=== PATIENT | female | born 1985 | race Caucasian/White ===

== ENCOUNTER 2022-02-05 03:52 | Emergency (ER) | payer MEDICAID ==
[~2022-02-05] VITALS: Ht 167.6 cm; Wt 59.1 kg
[2022-02-05] MEDS ORDERED: iohexol 350MG/ML 100ml bottle IV ONE (04:08)
[2022-02-05] MEDS ORDERED: ibuprofen tablet 400 MG TABLET PO ONE (05:25)
[2022-02-05] MEDS ORDERED: ibuprofen 200mg tablet PO ONE (05:30)
[2022-02-05] MEDS ORDERED: ALPRAZolam 0.5mg tablet PO ONE (07:15)
[2022-02-05 07:19] VITALS: BP 128/86
== END 2022-02-05 07:21 | disposition home or self-care (01) ==
LOC: ER 03:53
DX: S10.93XA Contusion of unspecified part of neck, initial encounter (principal); M25.552 Pain in left hip; Z88.0 Allergy status to penicillin; Z88.6 Allergy status to analgesic agent; X58.XXXA Exposure to other specified factors, initial encounter; Y93.89 Activity, other specified; Y92.89 Other specified places as the place of occurrence of the external cause; Y99.8 Other external cause status
CPT/HCPCS: 70498; 99285; J3490; Q9967; 99284

== ENCOUNTER 2023-11-07 18:48 | Emergency (ER) | payer MEDICAID ==
[~2023-11-07] VITALS: Ht 167.6 cm; Wt 54.4 kg
[2023-11-07 18:53] VITALS: TEMP 97.3
[2023-11-07] MEDS: normal saline 1000ML IV soln IV ONE (19:35)
[2023-11-07 19:50] LABS: BILIRUBIN,URINE NEGATIVE (Neg); COLOR,URINE YELLOW (Yellow); GLUCOSE, URINE NEGATIVE (Neg); KETONES,URINE 15 mg/dl (Neg); LEUKOCYTE ESTERASE ,URINE NEGATIVE (Neg); NITRITES, URINE NEGATIVE (Neg); OCCULT BLOOD,URINE LARGE (Neg); PH,URINE 6.5 (4.8-8.0); PROTEIN,URINE NEGATIVE (Neg)
[2023-11-07 19:55] LABS: URINE HCG NEGATIVE (NEG)
[2023-11-07 20:10] LABS: CLARITY,URINE SLIGHTLY CLOUDY (Clear); UA COLLECTION TYPE CLN CATCH MIDSTREAM
[2023-11-07 20:18] LABS: BACTERIA,URINE FEW /HPF (Neg); SQUAMOUS EPITHELIAL CELL,UR MANY /LPF (FEW)
[2023-11-07 20:19] LABS: MUCUS STRANDS FEW /LPF (Neg); RENAL CELLS, URINE FEW /HPF; TRANSITIONAL EPI CELLS,URINE MODERATE /HPF
[2023-11-07 20:21] LABS: URINE AMPHETAMINE SCREEN NEGATIVE (Neg); URINE BARBITUATE SCREEN NEGATIVE (Neg); URINE BENZODIAZEPINES SCREEN NEGATIVE (Neg); URINE CANNABINOID SCREEN NEGATIVE (Neg); URINE COCAINE SCREEN NEGATIVE (Neg); URINE METHADONE SCREEN NEGATIVE (Neg); URINE OPIATE SCREEN NEGATIVE (Neg); URINE PHENCYCLIDINE SCREEN NEGATIVE (Neg)
[2023-11-07] MEDS: HYDROcodone/acetaminophen 5mg/325mg tablet PO ONE (20:24)
[2023-11-07] MEDS: LORazepam 2 mg/ml vial IV ONE ×2 (20:55→22:24)
[2023-11-07 21:21] LABS: ETHANOL 72 MG/DL (<10); MAGNESIUM 1.8 MG/DL (1.5-2.4)
[2023-11-07 21:26] LABS: CREATINE KINASE 95 U/L (26-192)
[2023-11-07] MEDS: CefTRIAXone 2gm/D5W 50ml BAG 50 ML IV ONE (22:13)
[2023-11-07 22:21] LABS: BASOPHILS % (AUTO) 0.5 % (0-1); EOSINOPHILS % (AUTO) 0.4 % (0-6); HEMATOCRIT 33.3 % (35.0-45.0); HEMOGLOBIN 11.5 g/dl (12.0-16.0); LYMPHOCYTES # (AUTO) 1.4 X10'3 (1.1-4.8); LYMPHOCYTES % (AUTO) 33.8 % (21-51); MEAN CORPUSCULAR HGB CONC 34.4 g/dL (33.0-36.5); MEAN CORPUSCULAR VOLUME 107.6 FL (78-98); MEAN PLATELET VOLUME 7.7 FL (7.4-10.4); MONOCYTES # (AUTO) 0.4 X10'3 (0-0.9); MONOCYTES % (AUTO) 8.8 % (2-12); NEUTROPHILS # (AUTO) 2.4 X10'3 (1.8-7.7); NEUTROPHILS % (AUTO) 56.5 % (42-75); PLATELET COUNT 135 X10'3 (140-440); RED CELL DISTRIBUTION WIDTH 13.7 % (11.5-14.5); WHITE BLOOD COUNT 4.2 X10'3 (4.5-11.0)
[2023-11-07] MEDS: morphine 2 MG/ML inj. syringe IV ONE (22:24)
[2023-11-07 23:27] LABS: ALANINE AMINOTRANSFERASE 24 U/L (12-78); ALBUMIN 2.9 G/DL (3.4-5.0); ALBUMIN/GLOBULIN RATIO 0.9 (1.1-1.5); ALKALINE PHOSPHATASE 89 IU/L (46-116); ANION GAP 13 (8-16); ASPARTATE AMINO TRANSFERASE 70 U/L (10-37); BILIRUBIN,TOTAL 0.5 MG/DL (0.1-1.0); BLOOD UREA NITROGEN 8 MG/DL (7-18); BUN/CREATININE RATIO 13.3 (10.0-20.0); CALCIUM 7.9 MG/DL (8.5-10.1); CHLORIDE 100 MMOL/L (99-107); GLUCOSE 67 MG/DL (70-104); POTASSIUM 4.9 MMOL/L (3.5-5.1); SODIUM 139 MMOL/L (135-145); TOTAL CARBON DIOXIDE 25.8 MMOL/L (24-32); TOTAL PROTEIN 6.2 G/DL (6.4-8.2); eCRCL 108 ML/MIN; eGFR > 90 ML/MIN
[2023-11-08] MEDS ORDERED: NITR100C6 PO (00:26)
[2023-11-08] MEDS: normal saline 1000ml 1,000 ML IV ONE (00:43)
[2023-11-08 02:00] VITALS: BP 120/87; PULSE 129; RESP 18; O2SAT 98
== END 2023-11-08 02:03 | disposition home or self-care (01) ==
LOC: ER 18:48
DX: N39.0 Urinary tract infection, site not specified (principal); E86.0 Dehydration; F10.10 Alcohol abuse, uncomplicated; Z88.8 Allergy status to other drugs, medicaments and biological substances; Z88.1 Allergy status to other antibiotic agents; Y90.3 Blood alcohol level of 60-79 mg/100 ml
CPT/HCPCS: 36415; 71045; 80053; 80305; 80320; 81001; 81025; 82550; 83735; 84484; 85025; 93005; 96361; 96365; 96375; 96376; 99285; J0696; J2060; J2270; J7030; A6449

== ENCOUNTER 2023-12-10 10:59 | Inpatient (IN) | payer MEDICAID ==
[~2023-12-10] VITALS: Ht 165.1 cm; Wt 56.2 kg
[~2023-12-10 10:59] MED LIST: NITR100C6 PO
[2023-12-10] MEDS ORDERED: ringers solution, lacted 1,000 ML IV ONE (12:00)
[2023-12-10] MEDS: LORazepam 2 mg/ml vial IV ONE ×2 (12:04→13:17)
[2023-12-10] MEDS: thiamine 100mg/ml 2ml inj. IV STA (12:44)
[2023-12-10] MEDS: folic acid 1mg/0.2ml inj IV ONE (12:44)
[2023-12-10] MEDS: normal saline 1000ml 1,000 ML IV ONE ×2 (12:45→13:17)
[2023-12-10] MEDS ORDERED: LORazepam 2 mg/ml vial IV ONE (13:00)
[2023-12-10 13:13] LABS: BILIRUBIN,URINE NEGATIVE (Neg); CLARITY,URINE SLIGHTLY CLOUDY (Clear); COLOR,URINE YELLOW (Yellow); GLUCOSE, URINE NEGATIVE (Neg); KETONES,URINE 15 mg/dl (Neg); LEUKOCYTE ESTERASE ,URINE NEGATIVE (Neg); NITRITES, URINE POSITIVE (Neg); OCCULT BLOOD,URINE TRACE-INTACT (Neg); PROTEIN,URINE NEGATIVE (Neg); UROBILINOGEN,URINE 0.2 E.U/dL (0.2-1.0)
[2023-12-10 13:18] LABS: UA COLLECTION TYPE CLN CATCH MIDSTREAM
[2023-12-10 13:19] LABS: SQUAMOUS EPITHELIAL CELL,UR MANY /LPF (FEW)
[2023-12-10 13:20] LABS: BACTERIA,URINE 4+ /HPF (Neg); HYALINE CASTS 0-3 /LPF (NEGATIVE); RBC,URINE 0-2 /HPF (0-2); WBC,URINE 20-30 /HPF (0-4)
[2023-12-10 13:32] LABS: BASOPHILS % (AUTO) 0.4 % (0-1); EOSINOPHILS % (AUTO) 0 % (0-6); HEMOGLOBIN 12.3 g/dl (12.0-16.0); LYMPHOCYTES # (AUTO) 1.9 X10'3 (1.1-4.8); LYMPHOCYTES % (AUTO) 27.2 % (21-51); MEAN CORPUSCULAR HEMOGLOBIN 37.7 PG (27.0-31.0); MEAN CORPUSCULAR HGB CONC 34.3 g/dL (33.0-36.5); MEAN PLATELET VOLUME 8.3 FL (7.4-10.4); MONOCYTES # (AUTO) 0.7 X10'3 (0-0.9); MONOCYTES % (AUTO) 9.8 % (2-12); NEUTROPHILS # (AUTO) 4.3 X10'3 (1.8-7.7); NEUTROPHILS % (AUTO) 62.6 % (42-75); PLATELET COUNT 226 X10'3 (140-440); RED BLOOD COUNT 3.27 X10'6 (4.20-5.60); RED CELL DISTRIBUTION WIDTH 15.2 % (11.5-14.5); WHITE BLOOD COUNT 6.9 X10'3 (4.5-11.0)
[2023-12-10] MEDS: chlordiazePOXIDE 25mg capsule PO ONE (13:34)
[2023-12-10 13:35] LABS: ALANINE AMINOTRANSFERASE 31 U/L (12-78); ALBUMIN 3.1 G/DL (3.4-5.0); ALKALINE PHOSPHATASE 114 IU/L (46-116); ANION GAP 14 (8-16); ASPARTATE AMINO TRANSFERASE 93 U/L (10-37); BILIRUBIN,TOTAL 0.7 MG/DL (0.1-1.0); BLOOD UREA NITROGEN 4 MG/DL (7-18); BUN/CREATININE RATIO 7.8 (10.0-20.0); CALCIUM 7.7 MG/DL (8.5-10.1); CHLORIDE 100 MMOL/L (99-107); CREATININE 0.51 MG/DL (0.40-0.90); GLUCOSE 118 MG/DL (70-104); MAGNESIUM 1.5 MG/DL (1.5-2.4); SODIUM 135 MMOL/L (135-145); TOTAL CARBON DIOXIDE 20.6 MMOL/L (24-32); TOTAL PROTEIN 6.2 G/DL (6.4-8.2); eCRCL 127 ML/MIN; eGFR > 90 ML/MIN
[2023-12-10] MEDS: CefTRIAXone/D5W-Rocephin 1gm 50 ML IV ONE (14:09)
[2023-12-10] MEDS ORDERED: magnesium 4gm in 100ml NS 100 ML IV PRN (14:30)
[2023-12-10] MEDS ORDERED: ondansetron/PF 4mg/2ml inj IV PRN (14:30)
[2023-12-10] MEDS ORDERED: potassium Cl 40MEQ/1/2NS 520ml 520 ML IV PRN (14:30)
[2023-12-10] MEDS ORDERED: magnesium Cl slow-release 64mg tablet PO PRN (14:30)
[2023-12-10] MEDS ORDERED: acetaminophen 325mg tablet PO PRN ×2 (14:30)
[2023-12-10] MEDS ORDERED: potassium Cl 20 mEq SR tablet PO PRN ×2 (14:30)
[2023-12-10] MEDS ORDERED: magnesium 2GM in 50ml NS 50 ML IV PRN (14:30)
[2023-12-10] MEDS: CefTRIAXone 2gm/D5W 50ml BAG 50 ML IV SCH (14:35)
[2023-12-10] MEDS ORDERED: haloperidol 5mg tablet PO PRN (14:35)
[2023-12-10] MEDS: atenolol 50mg tablet PO SCH (15:40)
[2023-12-10] MEDS: LORazepam 2 mg/ml vial IV PRN (15:40)
[2023-12-10] MEDS: normal saline 1000ml 1,000 ML IV SCH (15:40)
[2023-12-10] MEDS ORDERED: morphine 2 MG/ML inj. syringe IV PRN (15:55)
[2023-12-10 16:40] LABS: LIPASE 17 U/L (16-77)
[2023-12-10 16:45] VITALS: BP 124/86; PULSE 99; TEMP 97.7; O2SAT 100
[2023-12-10 17:05] LABS: HEMOGLOBIN A1C 4.6 % (4.5-6.2)
[2023-12-10] MEDS: HYDROcodone/acetaminophen 5mg/325mg tablet PO PRN (17:27)
[2023-12-10] MEDS: acetaminophen 325mg tablet PO SCH (17:27)
[2023-12-10] MEDS: haloperidol lactate 5mg/ml inj IM PRN (20:36)
[2023-12-10] MEDS: cyclobenzaprine 10mg tablet PO PRN (20:36)
[2023-12-10] MEDS: thiamine 100mg/ml 2ml inj. IV SCH (20:36)
[2023-12-10] MEDS: LORazepam 1 MG tablet PO PRN (20:36)
[2023-12-10] MEDS: enoxaparin 40mg/0.4ml syringe SQ SCH (20:37)
[2023-12-10 22:00] VITALS: BP 123/69; PULSE 97; TEMP 98.5; O2SAT 99
[2023-12-10 22:51] VITALS: BP 123/69; PULSE 97; RESP 14; TEMP 98.5; O2SAT 99
[2023-12-11 06:00] VITALS: BP 126/71; PULSE 87; RESP 13; TEMP 97.9; O2SAT 100
[2023-12-11] MEDS: multivitamins, therapeutics tablet PO SCH (07:41)
[2023-12-11] MEDS: folic acid 1mg/0.2ml inj IV SCH (07:47)
[2023-12-11 08:00] VITALS: RESP 14; O2SAT 98
[2023-12-11 08:28] LABS: ALANINE AMINOTRANSFERASE 29 U/L (12-78); ALBUMIN 2.8 G/DL (3.4-5.0); ALBUMIN/GLOBULIN RATIO 0.8 (1.1-1.5); ALKALINE PHOSPHATASE 106 IU/L (46-116); ANION GAP 11 (8-16); ASPARTATE AMINO TRANSFERASE 99 U/L (10-37); BILIRUBIN,TOTAL 1.1 MG/DL (0.1-1.0); BLOOD UREA NITROGEN 2 MG/DL (7-18); BUN/CREATININE RATIO 3.1 (10.0-20.0); CALCIUM 7.8 MG/DL (8.5-10.1); CHLORIDE 104 MMOL/L (99-107); CREATININE 0.64 MG/DL (0.40-0.90); GLUCOSE 89 MG/DL (70-104); LIPASE 26 U/L (16-77); MAGNESIUM 1.7 MG/DL (1.5-2.4); PHOSPHORUS 3.1 MG/DL (2.3-4.5); SODIUM 139 MMOL/L (135-145); TOTAL CARBON DIOXIDE 24.3 MMOL/L (24-32); TOTAL PROTEIN 6.3 G/DL (6.4-8.2); eCRCL 101 ML/MIN; eGFR > 90 ML/MIN
[2023-12-11 08:31] LABS: POTASSIUM 3.7 MMOL/L (3.5-5.1)
[2023-12-11 08:34] LABS: BASOPHILS % (AUTO) 0.8 % (0-1); EOSINOPHILS % (AUTO) 0.5 % (0-6); HEMATOCRIT 37.2 % (35.0-45.0); HEMOGLOBIN 12.4 g/dl (12.0-16.0); LYMPHOCYTES # (AUTO) 2.3 X10'3 (1.1-4.8); LYMPHOCYTES % (AUTO) 55.9 % (21-51); MEAN CORPUSCULAR HEMOGLOBIN 37.9 PG (27.0-31.0); MEAN CORPUSCULAR HGB CONC 33.4 g/dL (33.0-36.5); MEAN CORPUSCULAR VOLUME 113.3 FL (78-98); MEAN PLATELET VOLUME 8.8 FL (7.4-10.4); MONOCYTES # (AUTO) 0.3 X10'3 (0-0.9); MONOCYTES % (AUTO) 6.2 % (2-12); NEUTROPHILS # (AUTO) 1.5 X10'3 (1.8-7.7); NEUTROPHILS % (AUTO) 36.6 % (42-75); PLATELET COUNT 224 X10'3 (140-440); RED BLOOD COUNT 3.28 X10'6 (4.20-5.60); RED CELL DISTRIBUTION WIDTH 15.4 % (11.5-14.5); WHITE BLOOD COUNT 4.1 X10'3 (4.5-11.0)
[2023-12-11 09:15] LABS: PLATELET ESTIMATE NORMAL; STOMATOCYTES FEW; TOTAL CELLS COUNTED 100
[2023-12-11 10:00] VITALS: BP 116/85; PULSE 88; RESP 14; TEMP 97; O2SAT 100
[2023-12-11 18:00] VITALS: BP 122/83; PULSE 101; RESP 18; TEMP 97.1; O2SAT 100
[2023-12-11] MEDS: lactose-reduced food (Ensure Enlive) - 237ml bottle PO SCH (19:00)
[2023-12-11 20:00] VITALS: RESP 14; O2SAT 98
[2023-12-11 22:00] VITALS: BP 139/90; PULSE 121; RESP 13; TEMP 97.6; O2SAT 100
[2023-12-12 06:00] VITALS: BP 146/105; PULSE 101; RESP 14; TEMP 97.3; O2SAT 100
[2023-12-12 06:33] LABS: BASOPHILS % (AUTO) 0.3 % (0-1); EOSINOPHILS % (AUTO) 0.8 % (0-6); HEMATOCRIT 33.8 % (35.0-45.0); HEMOGLOBIN 11.4 g/dl (12.0-16.0); LYMPHOCYTES # (AUTO) 1.4 X10'3 (1.1-4.8); LYMPHOCYTES % (AUTO) 40.9 % (21-51); MEAN CORPUSCULAR HEMOGLOBIN 37.7 PG (27.0-31.0); MEAN CORPUSCULAR HGB CONC 33.6 g/dL (33.0-36.5); MEAN CORPUSCULAR VOLUME 112.2 FL (78-98); MEAN PLATELET VOLUME 8.6 FL (7.4-10.4); MONOCYTES # (AUTO) 0.2 X10'3 (0-0.9); MONOCYTES % (AUTO) 6.9 % (2-12); NEUTROPHILS # (AUTO) 1.7 X10'3 (1.8-7.7); NEUTROPHILS % (AUTO) 51.1 % (42-75); PLATELET COUNT 153 X10'3 (140-440); RED BLOOD COUNT 3.01 X10'6 (4.20-5.60); RED CELL DISTRIBUTION WIDTH 15.3 % (11.5-14.5); WHITE BLOOD COUNT 3.3 X10'3 (4.5-11.0)
[2023-12-12] MEDS: HYDROcodone/acetaminophen 5mg/325mg tablet PO PRN (06:33)
[2023-12-12 06:39] LABS: ALANINE AMINOTRANSFERASE 27 U/L (12-78); ALBUMIN 2.9 G/DL (3.4-5.0); ALBUMIN/GLOBULIN RATIO 0.9 (1.1-1.5); ALKALINE PHOSPHATASE 103 IU/L (46-116); ANION GAP 10 (8-16); ASPARTATE AMINO TRANSFERASE 64 U/L (10-37); BILIRUBIN,TOTAL 0.4 MG/DL (0.1-1.0); BLOOD UREA NITROGEN 3 MG/DL (7-18); BUN/CREATININE RATIO 5.9 (10.0-20.0); CALCIUM 8.2 MG/DL (8.5-10.1); CHLORIDE 108 MMOL/L (99-107); CREATININE 0.51 MG/DL (0.40-0.90); GLUCOSE 89 MG/DL (70-104); LIPASE 29 U/L (16-77); MAGNESIUM 1.4 MG/DL (1.5-2.4); PHOSPHORUS 3.7 MG/DL (2.3-4.5); POTASSIUM 3.2 MMOL/L (3.5-5.1); SODIUM 145 MMOL/L (135-145); TOTAL CARBON DIOXIDE 27.1 MMOL/L (24-32); TOTAL PROTEIN 6.3 G/DL (6.4-8.2); eCRCL 131 ML/MIN; eGFR > 90 ML/MIN
[2023-12-12 06:41] LABS: ACETONE NEGATIVE (NEGATIVE)
[2023-12-12 08:00] VITALS: RESP 14; O2SAT 100
[2023-12-12 08:55] VITALS: BP_SYST 146; PULSE 101
[2023-12-12] MEDS ORDERED: CIPR-259 PO (09:33)
[2023-12-12] MEDS ORDERED: thiamine tablet PO (09:33)
[2023-12-12] MEDS ORDERED: FOLI1TAB27 PO (09:33)
[2023-12-12] MEDS ORDERED: MULT-25 PO (09:33)
[2023-12-12] MEDS ORDERED: MELA5CAP PO (10:07)
[2023-12-12] MEDS ORDERED: ATEN50TA41 PO (10:07)
[2023-12-14] MEDS ORDERED: thiamine 100mg tablet PO SCH (08:00)
[2023-12-15] MEDS ORDERED: folic acid 1mg tablet PO SCH (08:00)
== END 2023-12-12 11:20 | disposition home or self-care (01) | DRG 463 ==
LOC: ER 10:59 → ED HOLD 14:33 → ORTHO 4S 16:39
PROVIDERS: ADMIT Internal Medicine; ATTEND Internal Medicine
DX: N39.0 Urinary tract infection, site not specified (principal); D53.9 Nutritional anemia, unspecified; F10.239 Alcohol dependence with withdrawal, unspecified; Z88.1 Allergy status to other antibiotic agents; Z88.5 Allergy status to narcotic agent; Z88.8 Allergy status to other drugs, medicaments and biological substances; Z98.891 History of uterine scar from previous surgery
CPT/HCPCS: 36415; 71045; 80053; 81001; 82009; 83036; 83605; 83690; 83735; 84100; 84443; 85007; 85025; 87040; 87081; 93005; 97161; 97530; 99285; A6258; G0378; J0696; J1630; J1650; J2060; J3411; J3490; J7030

== ENCOUNTER 2024-03-12 18:49 | Emergency (ER) | payer MEDICAID ==
[~2024-03-12] VITALS: Ht 167.6 cm; Wt 52.7 kg
[~2024-03-12 18:49] MED LIST changes: +ATEN50TA41 PO; +FOLI1TAB27 PO; +MELA5CAP PO; +MULT-25 PO; -NITR100C6 PO; +thiamine tablet PO
[2024-03-12 19:04] VITALS: TEMP 97.4
[2024-03-12 21:41] LABS: BASOPHILS % (AUTO) 0.7 % (0-1); EOSINOPHILS % (AUTO) 0.3 % (0-6); HEMATOCRIT 46.2 % (35.0-45.0); HEMOGLOBIN 15.7 g/dl (12.0-16.0); LYMPHOCYTES # (AUTO) 1.7 X10'3 (1.1-4.8); LYMPHOCYTES % (AUTO) 30.8 % (21-51); MEAN CORPUSCULAR HEMOGLOBIN 37.1 PG (27.0-31.0); MEAN CORPUSCULAR HGB CONC 34.1 g/dL (33.0-36.5); MEAN CORPUSCULAR VOLUME 108.9 FL (78-98); MEAN PLATELET VOLUME 8.5 FL (7.4-10.4); MONOCYTES # (AUTO) 0.5 X10'3 (0-0.9); MONOCYTES % (AUTO) 8.2 % (2-12); NEUTROPHILS # (AUTO) 3.4 X10'3 (1.8-7.7); PLATELET COUNT 270 X10'3 (140-440); RED BLOOD COUNT 4.24 X10'6 (4.20-5.60); RED CELL DISTRIBUTION WIDTH 13.2 % (11.5-14.5); WHITE BLOOD COUNT 5.7 X10'3 (4.5-11.0)
[2024-03-12 21:56] LABS: ALANINE AMINOTRANSFERASE 47 U/L (12-78); ALBUMIN 3.8 G/DL (3.4-5.0); ALBUMIN/GLOBULIN RATIO 0.8 (1.1-1.5); ALKALINE PHOSPHATASE 155 IU/L (46-116); ANION GAP 11 (8-16); ASPARTATE AMINO TRANSFERASE 171 U/L (10-37); BILIRUBIN,TOTAL 1.4 MG/DL (0.1-1.0); BLOOD UREA NITROGEN 7 MG/DL (7-18); BUN/CREATININE RATIO 9.5 (10.0-20.0); CALCIUM 9.3 MG/DL (8.5-10.1); CHLORIDE 91 MMOL/L (99-107); CREATININE 0.74 MG/DL (0.40-0.90); GLUCOSE 116 MG/DL (70-104); POTASSIUM 4.7 MMOL/L (3.5-5.1); SODIUM 130 MMOL/L (135-145); TOTAL CARBON DIOXIDE 28.5 MMOL/L (24-32); TOTAL PROTEIN 8.3 G/DL (6.4-8.2); eCRCL 85 ML/MIN; eGFR 87 ML/MIN
[2024-03-12 22:03] LABS: LIPASE 25 U/L (16-77); PRO BRAIN NATRIURETIC PEPTIDE 33 PG/ML (0-125)
[2024-03-12] MEDS ORDERED: PRED20TA PO (22:14)
[2024-03-12] MEDS: ketorolac trometh. 30mg/ml inj. IM ONE (22:25)
[2024-03-12] MEDS: dexamethasone sod phosphate 10mg/ml inj IM STA (22:26)
== END 2024-03-12 23:28 | disposition home or self-care (01) ==
LOC: ER 18:49
DX: M32.8 Other forms of systemic lupus erythematosus (principal); F10.90 Alcohol use, unspecified, uncomplicated; Z88.8 Allergy status to other drugs, medicaments and biological substances; Z88.1 Allergy status to other antibiotic agents; Z79.899 Other long term (current) drug therapy
CPT/HCPCS: 36415; 71045; 80053; 83605; 83690; 83880; 84145; 84484; 85025; 87040; 93005; 96372; 99285; J1100; J1885

== ENCOUNTER 2024-06-04 08:55 | Emergency (ER) | payer MEDICAID ==
[~2024-06-04] VITALS: Ht 162.6 cm; Wt 64.0 kg
[2024-06-04 08:56] VITALS: TEMP 98.5
[2024-06-04] MEDS: LORazepam 1 MG tablet PO ONE (10:52)
[2024-06-04] MEDS: dicyclomine 10 MG capsule PO ONE (10:52)
[2024-06-04] MEDS: diphenhydrAMINE 50 mg/ml inj IV ONE (11:41)
[2024-06-04] MEDS: metoclopramide 5 mg/ml inj IV ONE (11:42)
[2024-06-04] MEDS: normal saline 1000ml 1,000 ML IV ONE (11:42)
[2024-06-04] MEDS: ketorolac trometh 30MG/ML vial 30 MG/ML VIAL IM ONE (11:48)
[2024-06-04] MEDS ORDERED: ONDA-243 PO (12:53)
[2024-06-04] MEDS ORDERED: CHLO25CA10 PO (12:53)
[2024-06-04] MEDS: morphine 4 MG/ML inj SYRINge IV ONE (13:24)
[2024-06-04 13:29] VITALS: BP 157/102; PULSE 127; RESP 14; O2SAT 98
== END 2024-06-04 13:42 | disposition home or self-care (01) ==
LOC: ER 08:55
DX: F10.229 Alcohol dependence with intoxication, unspecified (principal); F10.239 Alcohol dependence with withdrawal, unspecified; Z88.1 Allergy status to other antibiotic agents; Z88.8 Allergy status to other drugs, medicaments and biological substances; Z79.899 Other long term (current) drug therapy
CPT/HCPCS: 96361; 96372; 96374; 96375; 99284; J1200; J1885; J2270; J2765; J7030

== ENCOUNTER 2024-12-04 10:23 | Inpatient (IN) | payer MEDICAID ==
[~2024-12-04] VITALS: Ht 167.6 cm; Wt 54.5 kg
[~2024-12-04 10:23] MED LIST changes: +CHLO25CA10 PO; +ONDA-243 PO
[2024-12-04] MEDS ORDERED: pantoprazole 40 MG vial IV SCH (10:45)
[2024-12-04 11:19] LABS: BASOPHILS % (AUTO) 0.7 % (0-1); EOSINOPHILS % (AUTO) 0.1 % (0-6); HEMOGLOBIN 13.1 g/dl (12.0-16.0); LYMPHOCYTES # (AUTO) 1.9 X10'3 (1.1-4.8); LYMPHOCYTES % (AUTO) 36.2 % (21-51); MEAN CORPUSCULAR HEMOGLOBIN 37.6 PG (27.0-31.0); MEAN CORPUSCULAR HGB CONC 34.5 g/dL (33.0-36.5); MEAN PLATELET VOLUME 9.5 FL (7.4-10.4); MONOCYTES # (AUTO) 0.5 X10'3 (0-0.9); MONOCYTES % (AUTO) 9.9 % (2-12); NEUTROPHILS # (AUTO) 2.8 X10'3 (1.8-7.7); NEUTROPHILS % (AUTO) 53.1 % (42-75); PLATELET COUNT 150 X10'3 (140-440); RED BLOOD COUNT 3.49 X10'6 (4.20-5.60); RED CELL DISTRIBUTION WIDTH 15.6 % (11.5-14.5); WHITE BLOOD COUNT 5.3 X10'3 (4.5-11.0)
[2024-12-04] MEDS: pantoprazole 40 MG vial IV ONE (11:21)
[2024-12-04] MEDS: normal saline 1000ml 1,000 ML IV ONE ×2 (11:22→12:43)
[2024-12-04] MEDS: diazepam inj 5 MG/ML inj. IV ONE ×2 (11:22→12:41)
[2024-12-04 11:28] LABS: INR 1.5 INR; PROTHROMBIN TIME 14.5 SECONDS (9.0-12.0)
[2024-12-04] MEDS: thiamine 100mg/ml 2ml inj. IV ONE (11:31)
[2024-12-04 11:32] LABS: ALANINE AMINOTRANSFERASE 171 U/L (12-78); ALBUMIN 1.9 G/DL (3.4-5.0); ALBUMIN/GLOBULIN RATIO 0.6 (1.1-1.5); ALKALINE PHOSPHATASE 668 IU/L (46-116); ANION GAP 10 (8-16); BILIRUBIN,TOTAL 2.9 MG/DL (0.1-1.0); BLOOD UREA NITROGEN 1 MG/DL (7-18); BUN/CREATININE RATIO 1.7 (10.0-20.0); CHLORIDE 82 MMOL/L (99-107); CREATININE 0.58 MG/DL (0.40-0.90); ETHANOL 38 MG/DL (<10); GLUCOSE 185 MG/DL (70-104); MAGNESIUM 1.3 MG/DL (1.5-2.4); SODIUM 123 MMOL/L (135-145); TOTAL CARBON DIOXIDE 30.7 MMOL/L (24-32); eCRCL 111 ML/MIN; eGFR > 90 ML/MIN
[2024-12-04] MEDS: ondansetron/PF 4mg/2ml inj IV ONE (11:38)
[2024-12-04 11:39] LABS: ASPARTATE AMINO TRANSFERASE 251 U/L (10-37); BILIRUBIN,DIRECT 1.9 MG/DL (0-0.3); CREATINE KINASE 193 U/L (26-192); POTASSIUM 3.2 MMOL/L (3.5-5.1)
[2024-12-04 12:00] LABS: HCG SERUM QL NEGATIVE
[2024-12-04] MEDS: acetaminophen 1,000mg/100ml IV 100 ML IV STA (12:04)
[2024-12-04] MEDS: potassium Cl 20 mEq SR tablet PO ONE (12:41)
[2024-12-04] MEDS: magnesium sulf-water 2g/50mL 50 ML IV ONE (12:41)
[2024-12-04] MEDS: morphine 4 MG/ML inj SYRINge IV ONE (12:54)
[2024-12-04] MEDS: potassium Cl 20mEq in NS 1,000 ML IV SCH (14:15)
[2024-12-04] MEDS ORDERED: HYDROcodone/acetaminophen 5mg/325mg tablet PO PRN (14:15)
[2024-12-04] MEDS ORDERED: HYDROmorphone inj. 0.5 MG/0.5 ML DISP.SYRIN IV PRN (14:15)
[2024-12-04] MEDS ORDERED: diphenhydrAMINE 25mg capsule PO PRN (14:15)
[2024-12-04] MEDS ORDERED: magnesium hydroxide 30ml (MOM) UD suspension PO PRN (14:15)
[2024-12-04] MEDS ORDERED: acetaminophen 325mg tablet PO PRN (14:15)
[2024-12-04] MEDS ORDERED: magnesium sulf-water 2g/50mL 50 ML IV PRN (14:15)
[2024-12-04] MEDS ORDERED: bisacodyl 10mg suppository rectal RC PRN (14:15)
[2024-12-04] MEDS ORDERED: potassium Cl 40MEQ/1/2NS 520ml 520 ML IV PRN (14:15)
[2024-12-04] MEDS ORDERED: dextrose 50%-water 50ml dispensing syringe IV PRN (14:15)
[2024-12-04] MEDS ORDERED: potassium Cl 20 mEq SR tablet PO PRN ×2 (14:15)
[2024-12-04] MEDS ORDERED: mag hydrox/Alum hydrox/simeth 30ml oral suspension PO PRN (14:15)
[2024-12-04] MEDS ORDERED: LORazepam 2 mg/ml vial IV PRN ×2 (14:15)
[2024-12-04] MEDS ORDERED: magnesium sulf-water 4G/100mL 100 ML IV PRN (14:15)
[2024-12-04] MEDS ORDERED: diphenhydrAMINE 50 mg/ml inj IV PRN (14:15)
[2024-12-04] MEDS ORDERED: haloperidol lactate 5mg/ml inj IM PRN (14:15)
[2024-12-04] MEDS ORDERED: diazepam inj 5 MG/ML inj. IV SCH (14:35)
[2024-12-04 14:41] LABS: BILIRUBIN,URINE NEGATIVE (Neg); CLARITY,URINE SLIGHTLY CLOUDY (Clear); COLOR,URINE YELLOW (Yellow); GLUCOSE, URINE NEGATIVE (Neg); KETONES,URINE NEGATIVE (Neg); LEUKOCYTE ESTERASE ,URINE TRACE (Neg); NITRITES, URINE NEGATIVE (Neg); OCCULT BLOOD,URINE NEGATIVE (Neg); PROTEIN,URINE NEGATIVE (Neg); UROBILINOGEN,URINE 0.2 E.U/dL (0.2-1.0)
[2024-12-04 14:42] LABS: APTT 27 SECONDS (22-32); D-DIMER 1.37 MG/L FEU (0-0.50)
[2024-12-04 14:46] LABS: HEMOGLOBIN A1C 7.1 % (4.5-6.2)
[2024-12-04 14:48] LABS: UA COLLECTION TYPE STRAIGHT CATH
[2024-12-04 14:49] LABS: WBC,URINE 30-50 /HPF (0-4)
[2024-12-04 14:50] LABS: SQUAMOUS EPITHELIAL CELL,UR FEW /LPF (FEW)
[2024-12-04 14:51] LABS: PRO BRAIN NATRIURETIC PEPTIDE 165 PG/ML (0-125)
[2024-12-04 14:52] LABS: BACTERIA,URINE 4+ /HPF (Neg); MUCUS STRANDS NONE SEEN /LPF (Neg)
[2024-12-04 14:53] LABS: PHOSPHORUS 2.6 MG/DL (2.3-4.5)
[2024-12-04 15:12] LABS: URINE AMPHETAMINE SCREEN NEGATIVE (Neg); URINE BARBITUATE SCREEN NEGATIVE (Neg); URINE BENZODIAZEPINES SCREEN NEGATIVE (Neg); URINE CANNABINOID SCREEN NEGATIVE (Neg); URINE COCAINE SCREEN NEGATIVE (Neg); URINE METHADONE SCREEN NEGATIVE (Neg); URINE OPIATE SCREEN POSITIVE (Neg); URINE PHENCYCLIDINE SCREEN NEGATIVE (Neg)
[2024-12-04] MEDS: ondansetron/PF 4mg/2ml inj IV PRN (17:19)
[2024-12-04] MEDS: morphine 2 MG/ML inj. syringe IV PRN (17:19)
[2024-12-04] MEDS ORDERED: levoFLOXACIN-Levaquin 500mg/D5 100 ML IV SCH (17:30)
[2024-12-04 17:57] VITALS: BP 132/79; PULSE 76; RESP 20; TEMP 97.3; O2SAT 98
[2024-12-04 18:00] VITALS: BP 132/79; PULSE 76; RESP 20; TEMP 97.3; O2SAT 98
[2024-12-04] MEDS ORDERED: ZOLP-679 PO (18:03)
[2024-12-04] MEDS: diazepam inj 5 MG/ML inj. IV PRN ×2 (19:01→22:34)
[2024-12-04 20:00] VITALS: RESP 20; O2SAT 98
[2024-12-04] MEDS: K and/or MAG REPLACEMENT MC SCH (20:00)
[2024-12-04] MEDS: docusate sod 100mg capsule PO SCH (20:00)
[2024-12-04 20:31] VITALS: BP 116/79; PULSE 125; RESP 15; TEMP 98.5; O2SAT 98
[2024-12-04] MEDS: normal saline 1000ml 1,000 ML IV SCH (21:58)
[2024-12-04] MEDS: HYDROcodone/acetaminophen 10/325mg tab PO PRN (21:58)
[2024-12-04] MEDS: thiamine 100mg/ml 2ml inj. IV SCH (21:59)
[2024-12-04] MEDS: levoFLOXACIN-Levaquin 500mg/D5 100 ML IV SCH (21:59)
[2024-12-04 22:00] VITALS: BP 129/78; PULSE 119; RESP 18; TEMP 97; O2SAT 99
[2024-12-05] MEDS: zolpidem 5mg tablet PO SCH (00:06)
[2024-12-05 02:00] VITALS: BP 103/71; PULSE 140; RESP 29; TEMP 97.7; O2SAT 95
[2024-12-05 02:36] LABS: BASOPHILS % (AUTO) 0.3 % (0-1); EOSINOPHILS % (AUTO) 0.3 % (0-6); HEMATOCRIT 29.8 % (35.0-45.0); HEMOGLOBIN 10.3 g/dl (12.0-16.0); LYMPHOCYTES # (AUTO) 1.7 X10'3 (1.1-4.8); LYMPHOCYTES % (AUTO) 41.7 % (21-51); MEAN CORPUSCULAR HEMOGLOBIN 38.1 PG (27.0-31.0); MEAN CORPUSCULAR HGB CONC 34.4 g/dL (33.0-36.5); MEAN CORPUSCULAR VOLUME 110.6 FL (78-98); MEAN PLATELET VOLUME 9.4 FL (7.4-10.4); MONOCYTES # (AUTO) 0.4 X10'3 (0-0.9); MONOCYTES % (AUTO) 9.6 % (2-12); NEUTROPHILS % (AUTO) 48.1 % (42-75); PLATELET COUNT 82 X10'3 (140-440); RED CELL DISTRIBUTION WIDTH 16.2 % (11.5-14.5); WHITE BLOOD COUNT 4.2 X10'3 (4.5-11.0)
[2024-12-05 02:57] LABS: ALANINE AMINOTRANSFERASE 112 U/L (12-78); ALBUMIN 1.5 G/DL (3.4-5.0); ALBUMIN/GLOBULIN RATIO 0.6 (1.1-1.5); ALKALINE PHOSPHATASE 480 IU/L (46-116); ANION GAP 7 (8-16); ASPARTATE AMINO TRANSFERASE 174 U/L (10-37); BILIRUBIN,TOTAL 2.2 MG/DL (0.1-1.0); BLOOD UREA NITROGEN 2 MG/DL (7-18); BUN/CREATININE RATIO 2.5 (10.0-20.0); CALCIUM 6.8 MG/DL (8.5-10.1); CHLORIDE 93 MMOL/L (99-107); CHOL/HDL RATIO 6.6 (0.00-4.99); CHOLESTEROL 93 MG/DL (0-200); CREATININE 0.81 MG/DL (0.40-0.90); GLUCOSE 145 MG/DL (70-104); HDL CHOLESTEROL 14 MG/DL (35-60); LDL CHOLESTEROL 43 MG/DL (50-100); MAGNESIUM 1.5 MG/DL (1.5-2.4); POTASSIUM 3.5 MMOL/L (3.5-5.1); SODIUM 131 MMOL/L (135-145); TOTAL CARBON DIOXIDE 30.9 MMOL/L (24-32); TOTAL PROTEIN 3.9 G/DL (6.4-8.2); eCRCL 80 ML/MIN; eGFR 78 ML/MIN
[2024-12-05 02:59] LABS: TRIGLYCERIDES 1564 MG/DL (20-135)
[2024-12-05 06:00] VITALS: BP 105/65; PULSE 114; RESP 10; TEMP 96.7; O2SAT 97
[2024-12-05] MEDS: folic acid 1mg/0.2ml inj IV SCH (08:00)
[2024-12-05 11:26] VITALS: BP 101/60; PULSE 138; RESP 19; TEMP 97.8; O2SAT 97
[2024-12-05] MEDS: MULTIVIT-MIN/FERROUS GLUCONATE 9 MG/15 ML LIQUID PO SCH (14:26)
[2024-12-05 15:00] VITALS: BP 120/78; PULSE 120; RESP 20; TEMP 98; O2SAT 96
[2024-12-05 16:58] LABS: OSMOLALITY 290 MOSM/K (280-300)
[2024-12-05 17:01] LABS: PRO BRAIN NATRIURETIC PEPTIDE 110 PG/ML (0-125)
[2024-12-05 17:53] LABS: BILIRUBIN,URINE NEGATIVE (Neg); CLARITY,URINE CLEAR (Clear); COLOR,URINE YELLOW (Yellow); GLUCOSE, URINE NEGATIVE (Neg); KETONES,URINE NEGATIVE (Neg); LEUKOCYTE ESTERASE ,URINE MODERATE (Neg); NITRITES, URINE NEGATIVE (Neg); OCCULT BLOOD,URINE TRACE-INTACT (Neg); PH,URINE 6.5 (4.8-8.0); PROTEIN,URINE NEGATIVE (Neg)
[2024-12-05 17:55] LABS: UA COLLECTION TYPE NON-SPECIFIED
[2024-12-05 17:59] LABS: BACTERIA,URINE 1+ /HPF (Neg); MUCUS STRANDS FEW /LPF (Neg); RBC,URINE 0-2 /HPF (0-2); TRANSITIONAL EPI CELLS,URINE FEW /HPF
[2024-12-05 18:00] LABS: RENAL CELLS, URINE FEW /HPF; SQUAMOUS EPITHELIAL CELL,UR MANY /LPF (FEW)
[2024-12-05] MEDS: gemfibrozil 600mg tablet PO SCH (21:01)
[2024-12-06 02:00] VITALS: BP 101/58; PULSE 94; RESP 17; TEMP 98.3; O2SAT 96
[2024-12-06] MEDS: ondansetron 4mg rapidly disintigrating tab PO PRN (02:46)
[2024-12-06 06:00] VITALS: BP 98/56; PULSE 130; RESP 20; TEMP 97.9; O2SAT 97
[2024-12-06 06:51] LABS: BASOPHILS % (AUTO) 0.4 % (0-1); EOSINOPHILS % (AUTO) 0.4 % (0-6); HEMOGLOBIN 8.8 g/dl (12.0-16.0); LYMPHOCYTES # (AUTO) 1.8 X10'3 (1.1-4.8); LYMPHOCYTES % (AUTO) 40.4 % (21-51); MEAN CORPUSCULAR HEMOGLOBIN 37.5 PG (27.0-31.0); MEAN CORPUSCULAR HGB CONC 33.8 g/dL (33.0-36.5); MEAN CORPUSCULAR VOLUME 110.8 FL (78-98); MEAN PLATELET VOLUME 9.7 FL (7.4-10.4); MONOCYTES # (AUTO) 0.5 X10'3 (0-0.9); NEUTROPHILS # (AUTO) 2.1 X10'3 (1.8-7.7); NEUTROPHILS % (AUTO) 47.8 % (42-75); PLATELET COUNT 88 X10'3 (140-440); RED BLOOD COUNT 2.35 X10'6 (4.20-5.60); RED CELL DISTRIBUTION WIDTH 16.6 % (11.5-14.5); WHITE BLOOD COUNT 4.4 X10'3 (4.5-11.0)
[2024-12-06 07:36] LABS: ALANINE AMINOTRANSFERASE 73 U/L (12-78); ALBUMIN 1.4 G/DL (3.4-5.0); ALBUMIN/GLOBULIN RATIO 0.6 (1.1-1.5); ALKALINE PHOSPHATASE 409 IU/L (46-116); ANION GAP 6 (8-16); ASPARTATE AMINO TRANSFERASE 94 U/L (10-37); BILIRUBIN,TOTAL 1.8 MG/DL (0.1-1.0); BLOOD UREA NITROGEN 2 MG/DL (7-18); BUN/CREATININE RATIO 3.8 (10.0-20.0); CALCIUM 6.5 MG/DL (8.5-10.1); CHLORIDE 103 MMOL/L (99-107); CREATININE 0.53 MG/DL (0.40-0.90); GLUCOSE 89 MG/DL (70-104); MAGNESIUM 1.3 MG/DL (1.5-2.4); POTASSIUM 4.4 MMOL/L (3.5-5.1); SODIUM 137 MMOL/L (135-145); TOTAL CARBON DIOXIDE 28.5 MMOL/L (24-32); TOTAL PROTEIN 3.8 G/DL (6.4-8.2); eCRCL 122 ML/MIN; eGFR > 90 ML/MIN
[2024-12-06 08:04] LABS: ANISOCYTOSIS 1+; PLATELET ESTIMATE DECREASED
[2024-12-06 08:05] LABS: HYPOCHROMASIA 1+
[2024-12-06 08:15] VITALS: RESP 18; O2SAT 98
[2024-12-06] MEDS: atorvastatin 20mg tablet PO SCH (08:18)
[2024-12-06] MEDS: OMEGA-3/DHA/EPA/FISH OIL 1 EACH CAPSULE.DR PO SCH (08:18)
[2024-12-06 10:00] VITALS: BP 105/58; PULSE 119; RESP 16; TEMP 97.1; O2SAT 97
[2024-12-06] MEDS: acetaminophen 325mg tablet PO PRN (10:32)
[2024-12-06] MEDS: morphine 2 MG/ML inj. syringe IV PRN (10:37)
[2024-12-06] MEDS: magnesium Cl slow-release 64mg tablet PO PRN (11:35)
[2024-12-06 11:36] VITALS: RESP 16
[2024-12-06] MEDS ORDERED: FOLI0.4T6 PO (12:49)
[2024-12-06] MEDS ORDERED: CIPR-202 PO (12:49)
[2024-12-07] MEDS ORDERED: NO HOME MEDS (20:37)
[2024-12-08] MEDS ORDERED: thiamine 100mg tablet PO SCH (08:00)
[2024-12-08] MEDS ORDERED: folic acid 1mg tablet PO SCH (08:00)
== END 2024-12-06 12:56 | disposition home or self-care (01) | DRG 426 ==
LOC: ER 10:24 → ED HOLD 14:21 → PCU 3S 17:32
PROVIDERS: ADMIT Family Medicine; ATTEND Family Medicine
DX: E87.1 Hypo-osmolality and hyponatremia (principal); E88.09 Other disorders of plasma-protein metabolism, not elsewhere classified; M32.9 Systemic lupus erythematosus, unspecified; N39.0 Urinary tract infection, site not specified; E87.6 Hypokalemia; Z79.899 Other long term (current) drug therapy; E86.1 Hypovolemia; F10.229 Alcohol dependence with intoxication, unspecified; F10.239 Alcohol dependence with withdrawal, unspecified; G40.909 Epilepsy, unspecified, not intractable, without status epilepticus; F32.A Depression, unspecified; K58.9 Irritable bowel syndrome, unspecified; E83.42 Hypomagnesemia; Z88.1 Allergy status to other antibiotic agents; Z88.8 Allergy status to other drugs, medicaments and biological substances; Z83.3 Family history of diabetes mellitus; Z88.0 Allergy status to penicillin
CPT/HCPCS: 36415; 70450; 71045; 71250; 73610; 74176; 76700; 80048; 80053; 80061; 80076; 80305; 80320; 81001; 82140; 82550; 83036; 83605; 83690; 83735; 83880; 83930; 84100; 84145; 84484; 84703; 85008; 85025; 85379; 85610; 85730; 87040; 87077; 87088; 87186; 93005; 96361; 96365; 96375; 97110; 97161; 97530; 97535; 99285; A4615; C1758; G0378; J0131; J1956; J2270; J2405; J2470; J3360; J3411; J3480; J3490; J7030; J7040

== ENCOUNTER 2024-12-07 17:24 | Inpatient (IN) | payer MEDICAID ==
[~2024-12-07] VITALS: Ht 167.6 cm; Wt 68.3 kg
[~2024-12-07 17:24] MED LIST changes: -ATEN50TA41 PO; -CHLO25CA10 PO; +CIPR-202 PO; +FOLI0.4T6 PO; -FOLI1TAB27 PO; -MELA5CAP PO; -MULT-25 PO; -ONDA-243 PO; +ZOLP-679 PO; -thiamine tablet PO
[2024-12-07 18:27] LABS: BASOPHILS % (AUTO) 0.4 % (0-1); EOSINOPHILS % (AUTO) 0.1 % (0-6); HEMATOCRIT 30.1 % (35.0-45.0); HEMOGLOBIN 10.1 g/dl (12.0-16.0); LYMPHOCYTES # (AUTO) 1.8 X10'3 (1.1-4.8); LYMPHOCYTES % (AUTO) 42.6 % (21-51); MEAN CORPUSCULAR HEMOGLOBIN 38.1 PG (27.0-31.0); MEAN CORPUSCULAR HGB CONC 33.6 g/dL (33.0-36.5); MEAN CORPUSCULAR VOLUME 113.6 FL (78-98); MEAN PLATELET VOLUME 9.1 FL (7.4-10.4); MONOCYTES # (AUTO) 0.4 X10'3 (0-0.9); MONOCYTES % (AUTO) 9.2 % (2-12); NEUTROPHILS % (AUTO) 47.7 % (42-75); PLATELET COUNT 136 X10'3 (140-440); RED BLOOD COUNT 2.65 X10'6 (4.20-5.60); RED CELL DISTRIBUTION WIDTH 17.5 % (11.5-14.5); WHITE BLOOD COUNT 4.1 X10'3 (4.5-11.0)
[2024-12-07 18:52] LABS: ALBUMIN 1.7 G/DL (3.4-5.0); ANION GAP 5 (8-16); BLOOD UREA NITROGEN 2 MG/DL (7-18); BUN/CREATININE RATIO 3.8 (10.0-20.0); CALCIUM 7.7 MG/DL (8.5-10.1); CHLORIDE 101 MMOL/L (99-107); CREATINE KINASE 85 U/L (26-192); CREATININE 0.52 MG/DL (0.40-0.90); ETHANOL 36 MG/DL (<10); GLUCOSE 107 MG/DL (70-104); MAGNESIUM 1.5 MG/DL (1.5-2.4); POTASSIUM 4.1 MMOL/L (3.5-5.1); SODIUM 135 MMOL/L (135-145); TOTAL CARBON DIOXIDE 28.8 MMOL/L (24-32); eCRCL 135 ML/MIN; eGFR > 90 ML/MIN
[2024-12-07] MEDS: acetaminophen 325mg tablet PO ONE (19:07)
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
[2024-12-07 19:42] LABS: APTT 21 SECONDS (22-32); INR 1.1 INR; PROTHROMBIN TIME 11.4 SECONDS (9.0-12.0)
[2024-12-07 19:45] LABS: ALANINE AMINOTRANSFERASE 63 U/L (12-78); ALBUMIN 1.7 G/DL (3.4-5.0); ALBUMIN/GLOBULIN RATIO 0.5 (1.1-1.5); ALKALINE PHOSPHATASE 470 IU/L (46-116); ASPARTATE AMINO TRANSFERASE 82 U/L (10-37); BILIRUBIN,DIRECT 1.1 MG/DL (0-0.3); BILIRUBIN,TOTAL 1.4 MG/DL (0.1-1.0); LIPASE 29 U/L (16-77); TOTAL PROTEIN 4.9 G/DL (6.4-8.2)
[2024-12-07] MEDS ORDERED: magnesium sulf-water 4G/100mL 100 ML IV PRN (20:05)
[2024-12-07] MEDS ORDERED: magnesium Cl slow-release 64mg tablet PO PRN (20:05)
[2024-12-07] MEDS ORDERED: LORazepam 2 mg/ml vial IV PRN ×2 (20:05)
[2024-12-07] MEDS ORDERED: potassium Cl 40MEQ/1/2NS 520ml 520 ML IV PRN (20:05)
[2024-12-07] MEDS ORDERED: ondansetron/PF 4mg/2ml inj IV PRN (20:05)
[2024-12-07] MEDS ORDERED: potassium Cl 20 mEq SR tablet PO PRN ×2 (20:05)
[2024-12-07] MEDS ORDERED: magnesium sulf-water 2g/50mL 50 ML IV PRN (20:05)
[2024-12-07] MEDS ORDERED: mag hydrox/Alum hydrox/simeth 30ml oral suspension PO PRN (20:05)
[2024-12-07] MEDS ORDERED: magnesium hydroxide 30ml (MOM) UD suspension PO PRN (20:05)
[2024-12-07] MEDS ORDERED: haloperidol lactate 5mg/ml inj IM PRN (20:05)
[2024-12-07] MEDS ORDERED: dextrose 50%-water 50ml dispensing syringe IV PRN (20:05)
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
[2024-12-07] MEDS: folic acid 1mg/0.2ml inj IV ONE (20:14)
[2024-12-07] MEDS: thiamine 100mg/ml 2ml inj. IV ONE (20:15)
[2024-12-07] MEDS: chlordiazePOXIDE 25mg capsule PO ONE (20:15)
[2024-12-07] MEDS: magnesium sulf-water 2g/50mL 50 ML IV ONE (20:15)
[2024-12-07] MEDS: HYDROcodone/acetaminophen 5mg/325mg tablet PO PRN (20:23)
[2024-12-07] MEDS: normal saline 1000ml 1,000 ML IV SCH (20:23)
[2024-12-07] MEDS ORDERED: NO HOME MEDS (20:37)
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
[2024-12-07 22:14] LABS: % IRON SATURATION 96 % (11-46); IRON 143 UG/DL (49-151); TOTAL IRON BINDING CAPACITY 149 UG/DL (259-388)
--- NOTE | 2024-12-07 22:45 | RADIOLOGY REPORT ---
CLINICAL INDICATION: Pain BILAT KNEES TECHNIQUE: 4 radiographic views of the right knee were obtained. Comparison: None FINDINGS/IMPRESSION: There is no evidence of acute fracture or dislocation. The visualized joint space is well maintained. The alignment is anatomical. There is no radiopaque foreign body.
[2024-12-07 23:00] VITALS: BP 110/70; PULSE 117; RESP 18; TEMP 98.9; O2SAT 100
[2024-12-07] MEDS: morphine 2 MG/ML inj. syringe IV PRN (23:16)
[2024-12-07] MEDS: thiamine 100mg/ml 2ml inj. IV SCH (23:16)
--- NOTE | 2024-12-08 01:28 | RADIOLOGY REPORT ---
Clinical History BILAT KNEE PAIN S/P SEIZURE LEFT Comparison None Technique: Left knee 3 views Without Contrast SAMANTHA WEIR, [id number] Findings: Bones: No displaced fracture. Soft tissues: No swelling. No foreign body Joints: Visualized joints are within normal limits. Impression: 1. No acute fracture or dislocation. This report was electronically signed by Peng Camargo MD on 12/08/2024 1:24:49 AM.
[2024-12-08] MEDS: zolpidem 5mg tablet PO PRN (01:32)
[2024-12-08 05:03] LABS: BASOPHILS % (AUTO) 0.4 % (0-1); EOSINOPHILS % (AUTO) 0.7 % (0-6); HEMOGLOBIN 8.1 g/dl (12.0-16.0); LYMPHOCYTES # (AUTO) 1.6 X10'3 (1.1-4.8); LYMPHOCYTES % (AUTO) 53.9 % (21-51); MEAN CORPUSCULAR HEMOGLOBIN 38.2 PG (27.0-31.0); MEAN CORPUSCULAR HGB CONC 33.8 g/dL (33.0-36.5); MEAN CORPUSCULAR VOLUME 112.9 FL (78-98); MEAN PLATELET VOLUME 9.1 FL (7.4-10.4); MONOCYTES # (AUTO) 0.3 X10'3 (0-0.9); MONOCYTES % (AUTO) 10.6 % (2-12); NEUTROPHILS % (AUTO) 34.4 % (42-75); PLATELET COUNT 101 X10'3 (140-440); RED BLOOD COUNT 2.13 X10'6 (4.20-5.60); RED CELL DISTRIBUTION WIDTH 18.2 % (11.5-14.5)
[2024-12-08 05:11] LABS: ALANINE AMINOTRANSFERASE 50 U/L (12-78); ALBUMIN 1.3 G/DL (3.4-5.0); ALBUMIN/GLOBULIN RATIO 0.5 (1.1-1.5); ALKALINE PHOSPHATASE 347 IU/L (46-116); ANION GAP 3 (8-16); ASPARTATE AMINO TRANSFERASE 74 U/L (10-37); BILIRUBIN,TOTAL 1.2 MG/DL (0.1-1.0); BLOOD UREA NITROGEN 2 MG/DL (7-18); BUN/CREATININE RATIO 3.8 (10.0-20.0); CALCIUM 7.1 MG/DL (8.5-10.1); CHLORIDE 105 MMOL/L (99-107); CREATININE 0.53 MG/DL (0.40-0.90); GLUCOSE 106 MG/DL (70-104); MAGNESIUM 1.9 MG/DL (1.5-2.4); PHOSPHORUS 2.8 MG/DL (2.3-4.5); POTASSIUM 3.9 MMOL/L (3.5-5.1); SODIUM 138 MMOL/L (135-145); TOTAL CARBON DIOXIDE 29.7 MMOL/L (24-32); TOTAL PROTEIN 3.7 G/DL (6.4-8.2); eCRCL 132 ML/MIN; eGFR > 90 ML/MIN
[2024-12-08 06:00] VITALS: BP 110/78; PULSE 117; RESP 19; TEMP 97.8; O2SAT 99
[2024-12-08 06:10] LABS: ANISOCYTOSIS 1+; PLATELET ESTIMATE DECREASED; TOTAL CELLS COUNTED 100
[2024-12-08] MEDS: K and/or MAG REPLACEMENT MC SCH (08:00)
[2024-12-08] MEDS: docusate sod 100mg capsule PO SCH (08:00)
[2024-12-08] MEDS: folic acid 1mg/0.2ml inj IV SCH (08:09)
[2024-12-08] MEDS: JUVEN Smoothie Arginine/Glut./Ca2+Bmb (Juven 19.3pkt) 240ml cup PO SCH (08:11)
--- NOTE | 2024-12-08 10:58 | RADIOLOGY REPORT ---
Procedure: US ULTRASOUND OF ABDOMEN 12/08/2024 08:19 AM Indication: Elevated bilirubin Comparison: US ULTRASOUND OF ABDOMEN on DOS: 12/06/24 Technique: Grayscale and color images of the right upper quadrant were obtained. FINDINGS: ASCITES: None. LIVER: Liver measures 17.9 cm in craniocaudal. Coarse hepatic echotexture and nodularity of liver co ntour. No focal lesion is identified. No intrahepatic ductal dilatation. Normal directional flow is seen in the portal vein. Moderate perihepatic ascites. GALLBLADDER: No gallstones. Mild diffuse gallbladder wall thickening. Gallbladder wall thickness is 0 .4 cm. Sonographic Parikh's sign is negative. COMMON BILE DUCT: 0.5 cm in caliber. PANCREAS: Visualized portions are unremarkable. RIGHT KIDNEY: 9.2 cm in length. No hydronephrosis. No lesions identified. AORTA, IVC: Visualized portions are unremarkable. OTHER: None. IMPRESSION: 1. Cirrhotic liver morphology moderate perihepatic ascites. 2. Diffuse gallbladder wall thickening likely related to hepatocellular dysfunction. No cholelithiasi s. Sonographic parikh's sign is negative.
[2024-12-08 11:00] VITALS: BP 111/70; PULSE 111; RESP 12; TEMP 98.1; O2SAT 100
[2024-12-08] MEDS: LORazepam 1 MG tablet PO PRN ×2 (13:45→17:59)
[2024-12-08] MEDS: furosemide 40mg tablet PO SCH (13:45)
[2024-12-08 15:00] VITALS: BP 132/92; PULSE 117; RESP 18; TEMP 97.6; O2SAT 97
--- NOTE | 2024-12-08 15:04 | PROGRESS NOTE- Residence ---
Progress Note - Resident Providers to CC Resident Creating Document: VAIBHAV ALAMO RES ~ Antibiotic Timeout Antibiotic Ordered?: No Subjective Patient was seen and examined at the bedside today. She was tearful and mentioned that she is trying to quit drinking alcohol. Objective Vital Signs Date Time Temp Pulse Resp B/P (MAP) Pulse Ox O2 Delivery O2 Flow Rate FiO2 12/08/24 13:38 16 12/08/24 11:00 98.1 111 111/70 (84) 100 Room Air 12/08/24 08:00 0.0 Result Diagram: 12/08/2442312/08/24423 General: Alert, awake, oriented, AAO x4 HEENT: Erythema of her right orbit, PERRLA, no icterus, pallor, lymphadenopathy, carotid bruit Respiratory system: Bilateral vesicular breath sounds heard, no adventitious breath sounds CVS: Sinus tachycardia, S1-S2 heard, no murmurs/rubs/gallop GI: Soft, nontender, no organomegaly, no guarding/rigidity, bowel sounds present Neuro: No focal neurological deficits present, gait could not be elicited Extremities: 2+ pedal edema in bilateral lower legs. Musculoskeletal: No deformities Skin: Warm and dry Coagulation Studies Laboratory Tests Test 12/07/24 18:06 Prothrombin Time 11.4 SECONDS (9.0-12.0) INR International Normalized Ratio 1.1 INR Activated Partial Thromboplast Time 21 SECONDS (22-32) L Coagulation Comments Plan Plan Assessment: A 39-year-old female with past medical history of lupus was brought in by the EMS after two episodes of seizures at home this morning. Patient was admitted for the management and evaluation of alcohol withdrawal seizures. Plan: Alcohol withdrawal seizures Alcohol use disorder Ethyl alcohol concentration: 36 Severe Alcohol withdrawal protocol Thiamine, multivitamin, folic acid IV lorazepam p.r.n. for seizures On Mgso4 protocol Aspiration precautions student services representative and substance abuse navigator Cirrhosis of liver, MELD Na score 10 points, less than 2% 90 day mortality Child Valenzuela class B Platelet count is 101 Abdominal ultrasound showed Cirrhotic liver morphology moderate perihepatic ascites. Started on Lasix 40 mg and spironolactone 100 mg daily Started on lactulose Sinus tachycardia-improved Probably secondary to dehydration and alcohol withdrawal Macrocytic anemia Follow up with B12, iron studies Supplementation with folic acid and B12 Thrombocytopenia Probably secondary to alcohol vs cirrhosis of liver Continue to monitor platelet count Hypothyroidism Elevated TSH in last admission Follow up with T3 and T4 Right eye orbital erythema CT head: No significant intracranial pathology identified on noncontrast CT. No evidence of acute intracranial hemorrhage and skull fracture. CT face: Orbits and orbital contents intact and unremarkable, minimal chronic sinus disease noted. Left knee pain Follow up with knee x-ray Hypoalbuminemia Protein energy malnutrition Protein shakes Nutrition consult Lupus Patient was not on any medications at home Follows up with a end matcher. Code status: Full code Diet: Regular DVT prophylaxis: SCD Diet: Regular diet Lines/tubes; PERIPHERAL IV Status: Guarded Vaibhav Alamo m.D PGY1 Date of Service: Dec 08, 2024 Billing Provider: MICK SWANSON MD Common Visit Codes: [id number] INP/OBS CARE(HIGH) VAIBHAV ALAMO, RES Dec 08, 2024 15:04 MICK SWANSON MD Dec 08, 2024 21:01
[2024-12-08] MEDS: spironolactone 50 MG tablet PO ONE (15:19)
[2024-12-08] MEDS: lactulose 20gm/30ml cup PO SCH (15:19)
[2024-12-08] MEDS: diazepam inj 5 MG/ML inj. IV PRN (16:59)
[2024-12-08 18:00] VITALS: BP 112/75; PULSE 114; RESP 16; TEMP 97.6; O2SAT 96
[2024-12-08 22:00] VITALS: BP 122/88; PULSE 128; RESP 14; TEMP 97.6; O2SAT 96
[2024-12-09 06:00] VITALS: BP 98/63; PULSE 118; RESP 14; TEMP 97.2; O2SAT 95
[2024-12-09 06:20] LABS: BASOPHILS % (AUTO) 0.4 % (0-1); EOSINOPHILS % (AUTO) 0.4 % (0-6); HEMATOCRIT 24.7 % (35.0-45.0); HEMOGLOBIN 8.3 g/dl (12.0-16.0); LYMPHOCYTES # (AUTO) 1.3 X10'3 (1.1-4.8); LYMPHOCYTES % (AUTO) 41.1 % (21-51); MEAN CORPUSCULAR HEMOGLOBIN 38.2 PG (27.0-31.0); MEAN CORPUSCULAR HGB CONC 33.5 g/dL (33.0-36.5); MEAN CORPUSCULAR VOLUME 113.9 FL (78-98); MEAN PLATELET VOLUME 9.1 FL (7.4-10.4); MONOCYTES # (AUTO) 0.4 X10'3 (0-0.9); MONOCYTES % (AUTO) 12.9 % (2-12); NEUTROPHILS # (AUTO) 1.4 X10'3 (1.8-7.7); NEUTROPHILS % (AUTO) 45.2 % (42-75); PLATELET COUNT 117 X10'3 (140-440); RED BLOOD COUNT 2.17 X10'6 (4.20-5.60)
[2024-12-09 06:32] LABS: ALANINE AMINOTRANSFERASE 40 U/L (12-78); ALBUMIN 1.4 G/DL (3.4-5.0); ALBUMIN/GLOBULIN RATIO 0.6 (1.1-1.5); ALKALINE PHOSPHATASE 329 IU/L (46-116); ANION GAP 3 (8-16); ASPARTATE AMINO TRANSFERASE 59 U/L (10-37); BILIRUBIN,TOTAL 1.1 MG/DL (0.1-1.0); BLOOD UREA NITROGEN 2 MG/DL (7-18); BUN/CREATININE RATIO 4.9 (10.0-20.0); CALCIUM 7.3 MG/DL (8.5-10.1); CHLORIDE 107 MMOL/L (99-107); CREATININE 0.41 MG/DL (0.40-0.90); GLUCOSE 95 MG/DL (70-104); MAGNESIUM 1.6 MG/DL (1.5-2.4); PHOSPHORUS 3.2 MG/DL (2.3-4.5); POTASSIUM 3.6 MMOL/L (3.5-5.1); SODIUM 139 MMOL/L (135-145); TOTAL CARBON DIOXIDE 28.8 MMOL/L (24-32); TOTAL PROTEIN 3.9 G/DL (6.4-8.2); TRIGLYCERIDES 74 MG/DL (20-135); eCRCL 171 ML/MIN; eGFR > 90 ML/MIN
[2024-12-09 10:00] VITALS: BP 115/77; PULSE 129; RESP 21; TEMP 98.3; O2SAT 99
[2024-12-09] MEDS: cyanocobalamin 500mcg tablet PO SCH (12:47)
[2024-12-09] MEDS: spironolactone 50 MG tablet PO SCH (12:49)
[2024-12-09] MEDS: lactulose 20gm/30ml cup PO SCH (12:50)
[2024-12-09 13:50] VITALS: BP 101/65; PULSE 122; RESP 16; TEMP 98.1; O2SAT 96
[2024-12-09] MEDS: ketorolac trometh 15mg/ml vial 15 MG/ML ML IV ONE (19:34)
--- NOTE | 2024-12-09 20:38 | PROGRESS NOTE- Residence ---
Progress Note - Resident Providers to CC Resident Creating Document: VAIBHAV ALAMO RES ~ Antibiotic Timeout Antibiotic Ordered?: No Subjective Patient was seen and examined at the bedside today. She continued to have bilateral leg swellings. Discussed with her about the findings of cirrhosis of liver. Objective Vital Signs Date Time Temp Pulse Resp B/P (MAP) Pulse Ox O2 Delivery O2 Flow Rate FiO2 12/09/24 19:34 22 12/09/24 18:30 119 12/09/24 13:50 98.1 101/65 (77) 96 Room Air 12/09/24 08:00 0.0 Result Diagram: 12/09/24 0546 12/09/24 0546 General: Alert, awake, oriented, AAO x4 HEENT: Erythema of her right orbit, PERRLA, no icterus, pallor, lymphadenopathy, carotid bruit Respiratory system: Bilateral vesicular breath sounds heard, no adventitious breath sounds CVS: Sinus tachycardia, S1-S2 heard, no murmurs/rubs/gallop GI: Soft, nontender, no organomegaly, no guarding/rigidity, bowel sounds present Neuro: No focal neurological deficits present, gait could not be elicited Extremities: 2+ pedal edema in bilateral lower legs. Musculoskeletal: No deformities Skin: Warm and dry Coagulation Studies Laboratory Tests Test 12/07/24 18:06 Prothrombin Time 11.4 SECONDS (9.0-12.0) INR International Normalized Ratio 1.1 INR Activated Partial Thromboplast Time 21 SECONDS (22-32) L Coagulation Comments Plan Plan Assessment: A 39-year-old female with past medical history of lupus was brought in by the EMS after two episodes of seizures at home this morning. Patient was admitted for the management and evaluation of alcohol withdrawal seizures. Plan: Alcohol withdrawal seizures Alcohol use disorder Ethyl alcohol concentration: 36 Severe Alcohol withdrawal protocol Thiamine, multivitamin, folic acid IV lorazepam p.r.n. for seizures On Mgso4 protocol Aspiration precautions human services case manager and substance abuse navigator Cirrhosis of liver, MELD Na score 10 points, less than 2% 90 day mortality Child Valenzuela class B Platelet count is 117 Albumin 1.4 INR 1.1 Abdominal ultrasound showed Cirrhotic liver morphology moderate perihepatic ascites. Started on Lasix 40 mg and spironolactone 100 mg daily Started on lactulose p.o. daily Sinus tachycardia-improved Probably secondary to dehydration and alcohol withdrawal Macrocytic anemia Normal B12 levels Supplementation with folic acid and B12 Thrombocytopenia Probably secondary to alcohol vs cirrhosis of liver Continue to monitor platelet count Hypothyroidism Elevated TSH in last admission Follow up with T3 and T4 Urinary retention Patient complained of difficulty in urination. Bladder ultrasound done, showed a 700 mL, straight catheterization done. Right eye orbital erythema CT head: No significant intracranial pathology identified on noncontrast CT. No evidence of acute intracranial hemorrhage and skull fracture. CT face: Orbits and orbital contents intact and unremarkable, minimal chronic sinus disease noted. Left knee pain Follow up with knee x-ray Hypoalbuminemia Protein energy malnutrition Protein shakes Nutrition consult Code status: Full code Diet: Regular DVT prophylaxis: SCD Diet: Regular diet Lines/tubes; PERIPHERAL IV Status: Guarded Vaibhav Alamo M.D PGY1 Date of Service: Dec 09, 2024 Billing Provider: MICK SWANSON MD Common Visit Codes: [id number] INP/OBS CARE(HIGH) VAIBHAV ALAMO, RES Dec 09, 2024 20:38 MICK SWANSON MD Dec 09, 2024 21:43
[2024-12-10] VITALS (8 sets, daily range): BP systolic 99–124; BP diastolic 57–82; PULSE 112–140; RESP 13–20; TEMP 97.1–97.7; O2SAT 94–99
[2024-12-10 06:48] LABS: BASOPHILS % (AUTO) 0.3 % (0-1); EOSINOPHILS % (AUTO) 0.4 % (0-6); HEMOGLOBIN 8.3 g/dl (12.0-16.0); LYMPHOCYTES # (AUTO) 1.6 X10'3 (1.1-4.8); LYMPHOCYTES % (AUTO) 49.2 % (21-51); MEAN CORPUSCULAR HEMOGLOBIN 38.8 PG (27.0-31.0); MEAN CORPUSCULAR HGB CONC 33.3 g/dL (33.0-36.5); MEAN CORPUSCULAR VOLUME 116.5 FL (78-98); MONOCYTES # (AUTO) 0.4 X10'3 (0-0.9); MONOCYTES % (AUTO) 13.5 % (2-12); NEUTROPHILS # (AUTO) 1.2 X10'3 (1.8-7.7); NEUTROPHILS % (AUTO) 36.6 % (42-75); PLATELET COUNT 135 X10'3 (140-440); RED BLOOD COUNT 2.15 X10'6 (4.20-5.60); RED CELL DISTRIBUTION WIDTH 19.5 % (11.5-14.5); WHITE BLOOD COUNT 3.3 X10'3 (4.5-11.0)
[2024-12-10 07:07] LABS: ALANINE AMINOTRANSFERASE 27 U/L (12-78); ALBUMIN 1.4 G/DL (3.4-5.0); ALBUMIN/GLOBULIN RATIO 0.5 (1.1-1.5); ALKALINE PHOSPHATASE 286 IU/L (46-116); ANION GAP 4 (8-16); ASPARTATE AMINO TRANSFERASE 40 U/L (10-37); BILIRUBIN,TOTAL 0.8 MG/DL (0.1-1.0); BLOOD UREA NITROGEN 3 MG/DL (7-18); CALCIUM 7.5 MG/DL (8.5-10.1); CHLORIDE 108 MMOL/L (99-107); CREATININE 0.43 MG/DL (0.40-0.90); GLUCOSE 82 MG/DL (70-104); MAGNESIUM 1.8 MG/DL (1.5-2.4); PHOSPHORUS 4.3 MG/DL (2.3-4.5); POTASSIUM 3.8 MMOL/L (3.5-5.1); SODIUM 139 MMOL/L (135-145); TOTAL PROTEIN 4.1 G/DL (6.4-8.2); eCRCL 163 ML/MIN; eGFR > 90 ML/MIN
[2024-12-10] MEDS ORDERED: LORazepam 1 MG tablet PO PRN (09:40)
[2024-12-10] MEDS: LidoCAINE 2% Topical Jelly 11mL syringe (UROJET) TOP ONE (09:45)
[2024-12-10 10:32] LABS: BILIRUBIN,URINE NEGATIVE (Neg); CLARITY,URINE CLEAR (Clear); COLOR,URINE YELLOW (Yellow); GLUCOSE, URINE NEGATIVE (Neg); KETONES,URINE NEGATIVE (Neg); LEUKOCYTE ESTERASE ,URINE NEGATIVE (Neg); NITRITES, URINE NEGATIVE (Neg); OCCULT BLOOD,URINE NEGATIVE (Neg); PROTEIN,URINE NEGATIVE (Neg); UROBILINOGEN,URINE 0.2 E.U/dL (0.2-1.0)
[2024-12-10 10:52] LABS: UA COLLECTION TYPE CLN CATCH MIDSTREAM
[2024-12-10 10:56] LABS: URINE AMPHETAMINE SCREEN NEGATIVE (Neg); URINE BARBITUATE SCREEN NEGATIVE (Neg); URINE BENZODIAZEPINES SCREEN POSITIVE (Neg); URINE CANNABINOID SCREEN NEGATIVE (Neg); URINE COCAINE SCREEN NEGATIVE (Neg); URINE METHADONE SCREEN NEGATIVE (Neg); URINE OPIATE SCREEN POSITIVE (Neg); URINE PHENCYCLIDINE SCREEN NEGATIVE (Neg)
[2024-12-10] MEDS: gabapentin 100mg capsule PO SCH (12:42)
[2024-12-10] MEDS: LORazepam 1 MG tablet PO ONE (13:35)
--- NOTE | 2024-12-10 18:32 | PROGRESS NOTE- Residence ---
Progress Note - Resident Providers to CC Resident Creating Document: VAIBHAV GUZMAN RES ~ Antibiotic Timeout Antibiotic Ordered?: No Subjective Patient was seen and examined at the bedside today. She continued to have bilateral leg swellings. Patient had urinary retention yesterday, straight catheterization was done 2 times. Currently patient is able to urinate herself. Continues to have intermittent episodes of shakiness some alcohol withdrawal. Complained of pain in the bilateral legs. Started on gabapentin 100 mg t.i.d.. Objective Vital Signs Date Time Temp Pulse Resp B/P (MAP) Pulse Ox O2 Delivery O2 Flow Rate FiO2 12/10/24 17:45 16 12/10/24 15:00 97.2 118 106/74 (85) 99 Room Air 12/09/24 08:00 0.0 Result Diagram: 12/10/2461112/10/24 06 General: Alert, awake, oriented, AAO x4 HEENT: Erythema of her right orbit, PERRLA, no icterus, pallor, lymphadenopathy, carotid bruit Respiratory system: Bilateral vesicular breath sounds heard, no adventitious breath sounds CVS: Sinus tachycardia, S1-S2 heard, no murmurs/rubs/gallop GI: Soft, nontender, no organomegaly, no guarding/rigidity, bowel sounds present Neuro: No focal neurological deficits present, gait could not be elicited Extremities: 2+ pedal edema in bilateral lower legs. Musculoskeletal: No deformities Skin: Warm and dry Coagulation Studies Laboratory Tests Test 12/07/24 18:06 Prothrombin Time 11.4 SECONDS (9.0-12.0) INR International Normalized Ratio 1.1 INR Activated Partial Thromboplast Time 21 SECONDS (22-32) L Coagulation Comments Plan Plan Assessment: A 39-year-old female with past medical history of lupus was brought in by the EMS after two episodes of seizures at home this morning. Patient was admitted for the management and evaluation of alcohol withdrawal seizures. Plan: Alcohol withdrawal seizures Alcohol use disorder Ethyl alcohol concentration: 36 Severe Alcohol withdrawal protocol Thiamine, multivitamin, folic acid IV lorazepam q.4 p.r.n. On Mgso4 protocol Aspiration precautions environmental services director and substance abuse navigator Cirrhosis of liver, MELD Na score 10 points, less than 2% 90 day mortality Child Valenzuela class B Thrombocytopenia Platelet count is 117 Albumin 1.4 INR 1.1 Abdominal ultrasound showed Cirrhotic liver morphology moderate perihepatic ascites. Started on Lasix 40 mg and spironolactone 100 mg daily Started on lactulose p.o. 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 Urinary retention Patient was having urinary retention last night, straight cath was done 2 times. Currently able to urinate herself without any retention. Keen's if patient is retaining urine,> 500 mL. Sinus tachycardia- Continues to be tachycardic from withdrawal. Macrocytic anemia Normal B12 levels Supplementation with folic acid and B12 Hypothyroidism Elevated TSH in last admission T4 levels ordered. Urinary retention Patient complained of difficulty in urination. Bladder ultrasound done, showed a 700 mL, straight catheterization done. Right eye orbital erythema CT head: No significant intracranial pathology identified on noncontrast CT. No evidence of acute intracranial hemorrhage and skull fracture. CT face: Orbits and orbital contents intact and unremarkable, minimal chronic sinus disease noted. Hypoalbuminemia Protein energy malnutrition Protein shakes Nutrition consult Code status: Full code Diet: Regular DVT prophylaxis: SCD Diet: Regular diet Lines/tubes; PERIPHERAL IV Status: Guarded Vaibhav Guzman M.D PGY1 Date of Service: December 10, 2024 Billing Provider: MICK SWANSON MD Common Visit Codes: [id number] INP/OBS CARE(HIGH) VAIBHAV GUZMAN, RES December 10, 2024 18:32 MICK SWANSON MD December 10, 2024 21:49
--- NOTE | 2024-12-10 18:58 | DISCHARGE SUMMARY-Residence ---
Discharge Summary Providers to Resident Creating Document: VAIBHAV GUZMAN RES ~ Discharge Summary Admission Diagnosis: ALCOHOL WITHDRAWL SEIZURES Hospital Course DATE OF ADMISSION: 12/07/2024 DATE OF DISCHARGE: 12/11/[address] 1. No significant intracranial pathology identified on noncontrast CT 2. No evidence of acute intracranial hemorrhage. No evidence of skull fracture. Face CT 1. No evidence of acute fracture of the facial bones. 2. Orbits and orbital contents intact and unremarkable, minimal chronic sinus disease noted. Abdominal ultrasound 1. Cirrhotic liver morphology moderate perihepatic ascites. 2. Diffuse gallbladder wall thickening likely related to hepatocellular dysfunction. No cholelithiasis. Sonographic staley's sign is negative. Bilateral knee x-ray-acute fracture or dislocation Discharge Diagnosis\Comment: Alcohol use disorder Alcohol withdrawal seizures Cirrhosis of liver Thrombocytopenia Sinus tachycardia Macrocytic anemia Hypothyroidism Urinary retention Right eye periorbital erythema Hypoalbuminemia Protein energy malnutrition Operations\Procedures: None Consultants: None Complications: None Condition on DC: Stable Discharge Summary: This is a 39-year-old female with history of alcohol use disorder, lupus came to the ER two two episodes of seizures at home. She fell on her face. Patient was discharged from the hospital the day before after being treated for alcohol withdrawal seizures. After she left she consumed about one nine so whiskey last night the next day morning she had two episodes of seizures. She has been admitted for alcohol use disorder and alcohol withdrawal seizures. Was placed on severe alcohol withdrawal protocol, Ativan, haloperidol, Valium p.r.n.. Patient had tachycardia secondary to alcohol withdrawal. Also had macrocytic anemia. Vitamin B12 were normal. Continued supplementation with thiamine, folic acid, vitamin B12, multivitamin. Head CT was done which showed no acute intracranial pathology. Patient had periorbital erythema secondary to fall, CT face was done which showed no acute findings. Also had pain in bilateral knees secondary to falls, bilateral knee x-ray showed no acute findings. Abdominal ultrasound was done which showed findings of cirrhotic liver morphology with perihepatic ascites. Meld score 10, child Valenzuela class B. also had thrombocytopenia, hypoalbuminemia secondary to cirrhosis of liver. Started on Lasix 40 mg and spironolactone 100 mg daily. Also started on lactulose 20 daily. Patient also complained of pain in her bilateral lower extremities likely secondary to alcohol-induced neuropathy. Started on gabapentin 100 mg t.i.d.. Patient also complained of urinary retention, straight catheterization was done 2 times, later the patient started urinating by herself, Keen's was not placed. Also had protein energy malnutrition and hypoalbuminemia. Patient was advised to quit drinking alcohol and explained to her about the adverse effect of alcohol including memory loss, cirrhosis of liver, heart failure. Patient has improved symptomatically and is stable enough to be discharged home. At the time of discharge had the following physical examination findings General: Alert, awake, oriented, AAO x4 HEENT: Erythema of her right orbit, PERRLA, no icterus, pallor, lymphadenopathy, carotid bruit Respiratory system: Bilateral vesicular breath sounds heard, no adventitious breath sounds CVS: Sinus tachycardia, S1-S2 heard, no murmurs/rubs/gallop GI: Soft, nontender, no organomegaly, no guarding/rigidity, bowel sounds present Neuro: No focal neurological deficits present, gait could not be elicited Extremities: 2+ pedal edema in bilateral lower legs. Musculoskeletal: No deformities Skin: Warm and dry Discharge medications Ativan 1 mg p.o. q.12 p.r.n. Lasix 40 mg daily Spironolactone 100 mg daily Lactulose 20 g daily Folic acid 1 mg daily Thiamine 100 mg daily Multivitamin daily Vitamin B12 daily Gabapentin 100 mg t.i.d. Follow up with PCP in two weeks Follow up with a commercial green building designer Follow up with the urologist for urinary retention. Continue to take Lasix, spironolactone, lactulose daily Continue to take folic acid, thiamine, vitamin B12 daily Quit drinking alcohol. Call 911 or return to ER in case of seizures, increased confusion, headache, vomiting. *Problems/Diagnosis: (1) Cirrhosis of liver (2) Alcohol abuse Status: Acute (3) Alcohol withdrawal syndrome Status: Acute (4) Macrocytic anemia Status: Acute Total Time Spent on D/C: Up to 30 Minutes Date of Service: December 11, 2024 Billing Provider: MICK SWANSON MD, PRAVAHIKA, RES December 10, 2024 18:46
[2024-12-10] MEDS: LORazepam 1 MG tablet PO PRN (20:22)
[2024-12-11] MEDS: acetaminophen 325mg tablet PO PRN (00:03)
[2024-12-11 02:00] VITALS: BP 90/59; PULSE 124; RESP 14; TEMP 97.2; O2SAT 96
[2024-12-11 04:08] VITALS: BP_SYST 101; BP_SYST 107; BP_DIAS 65; BP_DIAS 70; BP_DIAS 73; PULSE 115; PULSE 125; PULSE 130
[2024-12-11 06:00] VITALS: BP 91/55; PULSE 119; RESP 14; TEMP 97.2; O2SAT 95
[2024-12-11 07:59] LABS: BASOPHILS % (AUTO) 0.6 % (0-1); EOSINOPHILS % (AUTO) 0.6 % (0-6); HEMOGLOBIN 8.1 g/dl (12.0-16.0); LYMPHOCYTES # (AUTO) 1.1 X10'3 (1.1-4.8); LYMPHOCYTES % (AUTO) 37.1 % (21-51); MEAN CORPUSCULAR HEMOGLOBIN 39.2 PG (27.0-31.0); MEAN CORPUSCULAR HGB CONC 33.6 g/dL (33.0-36.5); MEAN CORPUSCULAR VOLUME 116.5 FL (78-98); MEAN PLATELET VOLUME 8.7 FL (7.4-10.4); MONOCYTES # (AUTO) 0.4 X10'3 (0-0.9); MONOCYTES % (AUTO) 13.4 % (2-12); NEUTROPHILS # (AUTO) 1.4 X10'3 (1.8-7.7); NEUTROPHILS % (AUTO) 48.3 % (42-75); PLATELET COUNT 175 X10'3 (140-440); RED BLOOD COUNT 2.06 X10'6 (4.20-5.60); RED CELL DISTRIBUTION WIDTH 20.5 % (11.5-14.5)
[2024-12-11 08:24] LABS: PLATELET ESTIMATE NORMAL; TOTAL CELLS COUNTED 100
[2024-12-11 08:25] LABS: ANISOCYTOSIS 3+
[2024-12-11 08:26] LABS: STOMATOCYTES 1+; TARGET CELLS FEW
[2024-12-11 08:34] LABS: ALANINE AMINOTRANSFERASE 24 U/L (12-78); ALBUMIN 1.4 G/DL (3.4-5.0); ALBUMIN/GLOBULIN RATIO 0.5 (1.1-1.5); ALKALINE PHOSPHATASE 260 IU/L (46-116); ANION GAP 6 (8-16); ASPARTATE AMINO TRANSFERASE 41 U/L (10-37); BILIRUBIN,TOTAL 0.7 MG/DL (0.1-1.0); BLOOD UREA NITROGEN 3 MG/DL (7-18); BUN/CREATININE RATIO 5.7 (10.0-20.0); CALCIUM 7.8 MG/DL (8.5-10.1); CHLORIDE 110 MMOL/L (99-107); CREATININE 0.53 MG/DL (0.40-0.90); FREE T4 (FREE THYROXINE) 0.96 NG/DL (0.73-1.40); GLUCOSE 107 MG/DL (70-104); MAGNESIUM 1.7 MG/DL (1.5-2.4); PHOSPHORUS 4.6 MG/DL (2.3-4.5); SODIUM 144 MMOL/L (135-145); TOTAL CARBON DIOXIDE 28.3 MMOL/L (24-32); TOTAL PROTEIN 4.1 G/DL (6.4-8.2); eCRCL 132 ML/MIN; eGFR > 90 ML/MIN
[2024-12-11 08:37] LABS: POTASSIUM 4.3 MMOL/L (3.5-5.1)
[2024-12-11 09:20] VITALS: RESP 18; O2SAT 97
[2024-12-11] MEDS ORDERED: LORA-269 PO (09:56)
[2024-12-11] MEDS ORDERED: thiamine tablet PO (10:05)
[2024-12-11] MEDS ORDERED: SPIR50TA5 PO (10:05)
[2024-12-11] MEDS ORDERED: CYAN500T71 PO (10:05)
[2024-12-11] MEDS ORDERED: FOLI1TAB27 PO (10:05)
[2024-12-11] MEDS ORDERED: FURO40TA4 PO (10:05)
[2024-12-11] MEDS ORDERED: GABA-530 PO (10:05)
[2024-12-11] MEDS ORDERED: LACT-373 PO (10:05)
[2024-12-11 11:00] VITALS: BP 94/63; PULSE 117; RESP 16; TEMP 98; O2SAT 94
[2024-12-11] MEDS: LORazepam 1 MG tablet PO ONE (12:05)
--- NOTE | 2024-12-11 14:19 | DISCHARGE SUMMARY-Residence ---
Discharge Summary Providers to CC Resident Creating Document: TRENAHENRIETTAMARTHA BUTLER, RES CC: MICK SWANSON MD ~ Discharge Summary Admission Diagnosis: ALCOHOL WITHDRAWL SEIZURES Hospital Course DATE OF ADMISSION: 12/07/2024 DATE OF DISCHARGE: 12/11/2024 Discharge Diagnosis\Comment: Alcohol use disorder Alcohol withdrawal seizures Cirrhosis of liver Thrombocytopenia Sinus tachycardia Macrocytic anemia Hypothyroidism Urinary retention Right eye periorbital erythema Hypoalbuminemia Protein energy malnutrition Operations\Procedures: None Consultants: None Complications: None Condition on DC: Stable New Medications: Lorazepam (Ativan) 1 Mg Tablet 1 TAB PO Q12H PRN PRN for anxiety, #14 TAB 0 Refills Cyanocobalamin* (Vitamin B-12*) 500 Mcg Tablet 1000 MCG PO DAILY for 30 Days, #30 TAB Folic Acid* (Folic Acid*) Y Tab 1 MG PO DAILY for 30 Days, #30 TAB Furosemide (Furosemide) 40 Mg Tablet 40 MG PO DAILY for 30 Days, #30 TAB Gabapentin (Gabapentin) 100 Mg Capsule 100 MG PO TID for 30 Days, #90 CAP Lactulose (Lactulose) 10 Gram/15 Ml Solution 20 GM PO DAILY, #900 ML Spironolactone (Spironolactone) 50 Mg Tablet 100 MG PO DAILY@0830 for 30 Days, #30 TAB [thiamine tablet] () 100 MG TABLET 100 MG PO DAILY for 30 Days, #30 Discharge Summary: This is a 39-year-old female with history of alcohol use disorder, lupus came to the ER two two episodes of seizures at home. She fell on her face. Patient was discharged from the hospital the day before after being treated for alcohol withdrawal seizures. After she left she consumed about one nine so whiskey last night the next day morning she had two episodes of seizures. She has been admitted for alcohol use disorder and alcohol withdrawal seizures. Was placed on severe alcohol withdrawal protocol, Ativan, haloperidol, Valium p.r.n.. Patient had tachycardia secondary to alcohol withdrawal. Also had macrocytic anemia. Vitamin B12 were normal. Continued supplementation with thiamine, folic acid, vitamin B12, multivitamin. Head CT was done which showed no acute intracranial pathology. Patient had periorbital erythema secondary to fall, CT face was done which showed no acute findings. Also had pain in bilateral knees secondary to falls, bilateral knee x-ray showed no acute findings. Abdominal ultrasound was done which showed findings of cirrhotic liver morphology with perihepatic ascites. Meld score 10, child Valenzuela class B. also had thrombocytopenia, hypoalbuminemia secondary to cirrhosis of liver. Started on Lasix 40 mg and spironolactone 100 mg daily. Also started on lactulose 20 daily. Patient also complained of pain in her bilateral lower extremities likely secondary to alcohol-induced neuropathy. Started on gabapentin 100 mg t.i.d.. Patient also complained of urinary retention, straight catheterization was done 2 times, later the patient started urinating by herself, Keen's was not placed. Also had protein energy malnutrition and hypoalbuminemia. Patient was advised to quit drinking alcohol and explained to her about the adverse effect of alcohol including memory loss, cirrhosis of liver, heart failure. Patient has improved symptomatically and is stable enough to be discharged home. At the time of discharge had the following physical examination findings General: Alert, awake, oriented, AAO x4 HEENT: Erythema of her right orbit, PERRLA, no icterus, pallor, lymphadenopa thy, carotid bruit Respiratory system: Bilateral vesicular breath sounds heard, no adventitious breath sounds CVS: Sinus tachycardia, S1-S2 heard, no murmurs/rubs/gallop GI: Soft, nontender, no organomegaly, no guarding/rigidity, bowel sounds present Neuro: No focal neurological deficits present, gait could not be elicited Extremities: 2+ pedal edema in bilateral lower legs. Musculoskeletal: No deformities Skin: Warm and dry Labs at the time of discharge: WBC: 3, H/H: 8.1/24, platelet count: 175 Sodium: 144, potassium: 4.3, BUN: Three, creatinine: 0.53 Patient was discharged home with the following recommendations: Follow up with PCP in two weeks Follow up with a medical billing and coding instructor Follow up with the urologist for urinary retention. Continue to take Lasix, spironolactone, lactulose daily Continue to take folic acid, thiamine, vitamin B12 daily Quit drinking alcohol. Call 911 or return to ER in case of seizures, increased confusion, headache, vomiting. *Problems/Diagnosis: (1) Cirrhosis of liver (2) Alcohol abuse Status: Acute (3) Alcohol withdrawal syndrome Status: Acute (4) Macrocytic anemia Status: Acute Total Time Spent on D/C: > 30 Minutes Date of Service: December 11, 2024 Billing Provider: MICK SWANSON MD Common Visit Codes: [id number] DISCH DAY >30min MARTHA BAINS, RES December 11, 2024 14:19 MICK SWANSON MD December 11, 2024 21:08
[2024-12-12] MEDS ORDERED: folic acid 1mg tablet PO SCH (08:00)
[2024-12-12] MEDS ORDERED: thiamine 100mg tablet PO SCH (08:00)
[2024-12-12 08:11] LABS: HBSAG SCREEN Negative (Negative); HEP B CORE AB, IGM Negative (Negative); HEPATITIS C VIRUS ANTIBODY Non Reactive (Non Reactive)
== END 2024-12-11 12:09 | disposition home or self-care (01) | DRG 53 ==
LOC: ER 17:24 → ED HOLD 20:08 → PCU 3S 22:35
PROVIDERS: ADMIT Internal Medicine Pulmonary Disease; ATTEND Internal Medicine
DX: G40.89 Other seizures (principal); D69.6 Thrombocytopenia, unspecified; E46 Unspecified protein-calorie malnutrition; E88.09 Other disorders of plasma-protein metabolism, not elsewhere classified; K74.60 Unspecified cirrhosis of liver; L53.8 Other specified erythematous conditions; E03.9 Hypothyroidism, unspecified; R33.9 Retention of urine, unspecified; D53.9 Nutritional anemia, unspecified; F10.939 Alcohol use, unspecified with withdrawal, unspecified; Z95.1 Presence of aortocoronary bypass graft; Z88.8 Allergy status to other drugs, medicaments and biological substances; Z88.0 Allergy status to penicillin; Z68.24 Body mass index [BMI] 24.0-24.9, adult
CPT/HCPCS: 36415; 70450; 72125; 73564; 76700; 80048; 80053; 80076; 80305; 80320; 81003; 82550; 82607; 82948; 82977; 83540; 83550; 83690; 83735; 83874; 84100; 84439; 84478; 85007; 85025; 85610; 85730; 86705; 86803; 87081; 87340; 87522; 96365; 96375; 97116; 97161; 97530; 99285; C1758; G0378; J1885; J2270; J3360; J3411; J3490; J7030

== ENCOUNTER 2024-12-29 15:25 | Inpatient (IN) | payer MEDICAID ==
[~2024-12-29] VITALS: Ht 167.6 cm; Wt 64.0 kg
[~2024-12-29 15:25] MED LIST changes: -CIPR-202 PO; +CYAN500T71 PO; -FOLI0.4T6 PO; +FOLI1TAB27 PO; +FURO40TA4 PO; +GABA-530 PO; +LACT-373 PO; +LORA-269 PO; +NO HOME MEDS; +SPIR50TA5 PO; -ZOLP-679 PO; +thiamine tablet PO
--- NOTE | 2024-12-29 15:52 | ELECTROCARDIOGRAPH REPORT ---
[facility] Test Date: 2024-12-29 Test Time: 15:49:44 Pat Name: SAMANTHA WEIR Department: [facility]- Patient ID: [facility]-[id number] Room: [place] [address] Gender: F Ware Server: : [id number] Requested By: RADHA DOLAN Order Number: [id number] Reading MD: Dr. Lazaro Burleson Measurements Intervals [place] Rate: 131 P: 100 MA: 93 QRS: -28 QRSD: 69 T: 57 QT: 345 QTc: 510 Interpretive Statements Sinus tachycardia Borderline left axis deviation Borderline T abnormalities, anterior leads Borderline prolonged QT interval Electronically Signed On 12-30-2024 6:49:[address] Lazaro Burleson Please click the below link to view image of tracing.
[2024-12-29] MEDS ORDERED: levetiracetam inj 1,500 MG in normal saline 100ml IV soln 100 ML IV SCH (16:20)
[2024-12-29] MEDS: normal saline 1000ML IV soln IVB ONE (16:39)
[2024-12-29] MEDS: LORazepam 2 mg/ml vial IV ONE (16:39)
--- NOTE | 2024-12-29 16:42 | RADIOLOGY REPORT ---
CHEST RADIOGRAPH Indication: Seizure Technique: Single frontal view of the chest was obtained Comparison: DI CHEST,SINGLE VIEW on DOS: 12/05/24, DI CHEST,SINGLE VIEW on DOS: 03/12/24, DI CHEST,SINGL E VIEW on DOS: 12/10/23, DI CHEST,SINGLE VIEW on DOS: 11/07/23 FINDINGS: Lines and Tubes: None Lungs: No focal consolidation. Pleura: No effusion. No pneumothorax. Cardiomediastinal contours: Unremarkable Bones: No acute osseous abnormality. IMPRESSION: 1. No acute cardiopulmonary disease.
[2024-12-29] MEDS: levetiracetamNACL 1500mg/100mL 100 ML IV ONE (17:13)
--- NOTE | 2024-12-29 17:22 | RADIOLOGY REPORT ---
EXAM: CT CT HEAD INDICATION: Seizure EXAM DATE: 12/29/2024 04:50 PM COMPARISON: CT CT HEAD on DOS: 12/07/24, MR MRI HEAD on DOS: 12/04/24, CT CT HEAD on DOS: 12/04/24 TECHNIQUE: CT of the head without intravenous contrast. Radiation Dose Information: CTDI volume is 64.24 mGy. Dose-length product is [id number] mGy*cm FINDINGS: There is no evidence of acute intracranial hemorrhage, extra-axial collection, mass effect, midline s hift, herniation or hydrocephalus. The ventricles, sulci and cisterns are age appropriate. The martin-w maddy differentiation is intact. The visualized paranasal sinuses and mastoid air cells are clear. The surrounding soft tissues and osseous structures are unremarkable. IMPRESSION: 1. No evidence of acute intracranial hemorrhage, mass effect or hydrocephalus. END IMPRESSION:
--- NOTE | 2024-12-29 18:06 | Physician Documentation ---
History of Present Illness ~ Chief Complaint: Seizure Stated Complaint: ALCOHOL WITHDRAW WITH SZ Time Seen by MD: 18:03 Primary Medical Doctor: NONE Mode of Arrival: EMS HPI Patient presents to the emergency room for abdominal pain and symptoms of withdrawal. She reports that she had a witnessed seizure. She was seen here approximately one month ago for alcohol withdrawal symptoms. She endorses nausea vomiting and diarrhea. She states her last drink was yesterday where she had a shot of alcohol. She endorses visual hallucinations. Medication Reconciliation Allergies: Coded Allergies: tramadol (Verified Allergy, Intermediate, SEIZURES, 12/07/24) amoxicillin (Verified Allergy, Unknown, 12/07/24) Scheduled Cyanocobalamin* (Vitamin B-12*), 1,000 MCG PO DAILY Folic Acid* (Folic Acid*), 1 MG PO DAILY Furosemide (Furosemide), 40 MG PO DAILY Gabapentin (Gabapentin), 100 MG PO TID Lactulose (Lactulose), 20 GM PO DAILY Spironolactone (Spironolactone), 100 MG PO DAILY@0830 [thiamine tablet], 100 MG PO DAILY Scheduled PRN Lorazepam (Ativan), 1 TAB PO Q12H PRN PRN for anxiety Miscellaneous Medications Home Med List (No Home Medications), (Reported) Past Medical History Past Medical History: Seizures Past Surgical History: noncontributory Patient History: FH: CABG (coronary artery bypass surgery) (Mother,) FH: cirrhosis (Father, in 72) FH: diabetes mellitus (Sister) Alcohol Use: Heavy Drug Use: none Review of Systems ROS All review of systems negative except as per HPI Physical Exam Vital Signs: Temperature: 98.3, Source: Oral, Heart Rate: 135, Respiratory Rate: 15, BP: 116/65, Pulse Oximetry: 100, Weight: 64.000 Physical Exam General: Patient is awake, alert, oriented x4 in mild distress Head: Normocephalic and atraumatic. Eyes: Conjunctival normal. EOMI. PERRL. ENT: Mucous membranes dry. Neck: Supple, trachea is midline. Chest: Clear to auscultation bilaterally without rales, rhonchi, or wheezes. There is no accessory muscle use or retractions. Cardiac: Tachycardic and regular without murmurs, gallops, or rubs. Abd: Soft, nondistended, with positive tenderness to palpation of abdomen Extremities: Normal strength. Normal range of motion. No deformities or edema. No tremors Progress Results/Orders Results/Orders Orders - BRAD RAY MD Magnesium Sulf-Water 2g/50ml (Magnesium (12/29/24 19:15) Potassium Cl 40meq/1/2ns 520ml ([place] (12/29/24 20:00) Page Hospitalist (12/29/24 19:58) Fill Out Med Reconciliation (12/29/24 19:58) Morphine 4mg/Ml Inj. (Morphine Inj.) (12/29/24 20:15) Completed Orders - BRAD RAY MD Ondansetron Inj. (Zofran 4mg/2ml Vial) (12/29/24 18:10) Loperamide Capsule (Imodium Capsule) (12/29/24 18:10) Normal Saline 1000ml (Sodium Chloride 10 (12/29/24 18:10) Thiamine Inj. (Thiamine Inj.) (12/29/24 18:10) Diazepam Inj (Valium Inj) (12/29/24 18:10) Hcg Serum Ql (12/29/24 18:16) PHOS (12/29/24 19:14) Medications Received in ER Medications (Trade) Dose Ordered Sig/Rosales Route PRN Reason Start Time Stop Time Status Last Admin Dose Admin (Ativan inj) 1 mg ONCE ONCE IV 12/29/24 16:20 12/29/24 16:24 DC 12/29/24 16:39 1 MG (sodium chloride 1000ml IV soln) 1,000 ml ONCE ONCE IVB 12/29/24 16:20 12/29/24 16:24 DC 12/29/24 16:39 1,000 ML Levetiracetam 100 ml @ 373.832 mls/hr ONCE ONCE IV 12/29/24 16:26 12/29/24 16:36 DC 12/29/24 17:13 373.832 MLS/HR (Zofran 4mg/2ml vial) 4 mg ONCE ONCE IV 12/29/24 18:10 12/29/24 18:11 DC 12/29/24 18:36 4 MG (Imodium capsule) 2 mg ONCE ONCE PO 12/29/24 18:10 12/29/24 18:11 DC 12/29/24 18:36 2 MG Sodium Chloride 1,000 ml @ 1,000 mls/hr ONCE ONCE IV 12/29/24 18:10 12/29/24 19:09 DC 12/29/24 18:47 1,000 MLS/HR (thiamine inj.) 100 mg ONCE ONCE IV 12/29/24 18:10 12/29/24 18:11 DC 12/29/24 18:36 100 MG (Valium inj) 5 mg ONCE ONCE IV 12/29/24 18:10 12/29/24 18:12 DC 12/29/24 18:36 5 MG Potassium Chloride 520 ml @ 130 mls/hr Q4H IV 12/29/24 20:00 12/30/24 03:59 12/29/24 19:56 130 MLS/HR Vital Signs 12/29/24 12/29/24 12/29/24 15:32 15:50 16:42 Temp 98.3 Pulse 90 135 Resp 15 19 15 B/P (MAP) 121/86 116/65 (82) Pulse Ox 100 100 Laboratory Tests Test 12/29/24 18:03 12/29/24 19:09 Sodium Level 131 L Potassium Level 3.0 *L Chloride Level 87 L Carbon Dioxide Level 26.7 Anion Gap 17 H Blood Urea Nitrogen 4 L Creatinine 0.70 Estimated GFR/1.73 m2 > 90 BUN/Creatinine Ratio 5.7 L Glucose Level 142 H Calcium Level 7.4 L Magnesium Level 1.0 *L Total Bilirubin 0.8 Aspartate Amino Transf (AST/SGOT) 462 H Alanine Aminotransferase (ALT/SGPT) 218 H Alkaline Phosphatase 150 H Total Creatine Kinase 52 Troponin I High Sensitivity 10 Total Protein 4.7 L Albumin 2.3 L Globulin 2.4 L Albumin/Globulin Ratio 1.0 L Lipase 190 H Chemistry Comments Ethyl Alcohol Level 12 H White Blood Count 8.0 Red Blood Count 3.32 L Hemoglobin 12.4 Hematocrit 36.8 Mean Corpuscular Volume 110.8 H Mean Corpuscular Hemoglobin 37.4 H Mean Corpuscular Hemoglobin Concent 33.8 Red Cell Distribution Width 14.5 Platelet Count 212 Mean Platelet Volume 7.6 Neutrophils (%) (Auto) 80.3 H Lymphocytes (%) (Auto) 12.1 L Monocytes (%) (Auto) 7.0 Eosinophils (%) (Auto) 0.1 Basophils (%) (Auto) 0.5 Neutrophils # (Auto) 6.4 Lymphocytes # (Auto) 1.0 L Monocytes # (Auto) 0.6 Eosinophils # (Auto) 0.0 Basophils # (Auto) 0.0 CBC Comment Platelet Estimate Normal Red Blood Cell Morphology Perf Basophilic Stippling Macrocytosis 2+ Phosphorus Level 6.4 H Human Chorionic Gonadotropin, Qual Negative Medical Decision Making Findings Patient presented to the emergency room reporting alcohol withdrawal. Differentials include but are not limited to alcohol withdrawal, electrolyte disturbances, dehydration, seizure therefore emergent labs and imaging indicated. Patient is having significant alcohol withdrawals and I do not feel she is safe to be treated on outpatient basis. Departure Admitted to Inpatient Unit: yes, to hospitalist Impression: Primary Impression: Alcohol withdrawal syndrome Condition: Guarded Referrals: NO PRIMARY CARE PROVIDER (PCP) Signature Scribe Signature: No scribe Attestation: The note accurately reflects work and decisions made by me.Brad Ray MD 12/29/24 20:20 BRAD RAY MD December 29, 2024 18:06
[2024-12-29] MEDS: ondansetron/PF 4mg/2ml inj IV ONE (18:36)
[2024-12-29] MEDS: thiamine 100mg/ml 2ml inj. IV ONE (18:36)
[2024-12-29] MEDS: diazepam inj 5 MG/ML inj. IV ONE (18:36)
[2024-12-29] MEDS: loperamide 2mg capsule PO ONE (18:36)
[2024-12-29] MEDS: normal saline 1000ml 1,000 ML IV ONE (18:47)
[2024-12-29 18:51] LABS: ALANINE AMINOTRANSFERASE 218 U/L (12-78); ALBUMIN 2.3 G/DL (3.4-5.0); ALKALINE PHOSPHATASE 150 IU/L (46-116); ANION GAP 17 (8-16); ASPARTATE AMINO TRANSFERASE 462 U/L (10-37); BILIRUBIN,TOTAL 0.8 MG/DL (0.1-1.0); BLOOD UREA NITROGEN 4 MG/DL (7-18); BUN/CREATININE RATIO 5.7 (10.0-20.0); CALCIUM 7.4 MG/DL (8.5-10.1); CHLORIDE 87 MMOL/L (99-107); CREATINE KINASE 52 U/L (26-192); ETHANOL 12 MG/DL (<10); GLUCOSE 142 MG/DL (70-104); LIPASE 190 U/L (16-77); SODIUM 131 MMOL/L (135-145); TOTAL CARBON DIOXIDE 26.7 MMOL/L (24-32); TOTAL PROTEIN 4.7 G/DL (6.4-8.2); eCRCL 100 ML/MIN; eGFR > 90 ML/MIN
[2024-12-29 19:25] LABS: BASOPHILS % (AUTO) 0.5 % (0-1); EOSINOPHILS % (AUTO) 0.1 % (0-6); HEMATOCRIT 36.8 % (35.0-45.0); HEMOGLOBIN 12.4 g/dl (12.0-16.0); LYMPHOCYTES % (AUTO) 12.1 % (21-51); MEAN CORPUSCULAR HEMOGLOBIN 37.4 PG (27.0-31.0); MEAN CORPUSCULAR HGB CONC 33.8 g/dL (33.0-36.5); MEAN CORPUSCULAR VOLUME 110.8 FL (78-98); MEAN PLATELET VOLUME 7.6 FL (7.4-10.4); MONOCYTES # (AUTO) 0.6 X10'3 (0-0.9); NEUTROPHILS # (AUTO) 6.4 X10'3 (1.8-7.7); NEUTROPHILS % (AUTO) 80.3 % (42-75); PLATELET COUNT 212 X10'3 (140-440); RED BLOOD COUNT 3.32 X10'6 (4.20-5.60); RED CELL DISTRIBUTION WIDTH 14.5 % (11.5-14.5)
[2024-12-29 19:44] LABS: HCG SERUM QL NEGATIVE
[2024-12-29 19:51] LABS: PLATELET ESTIMATE NORMAL
[2024-12-29] MEDS: potassium Cl 40MEQ/1/2NS 520ml 520 ML IV SCH (19:56)
[2024-12-29] MEDS: morphine 4 MG/ML inj SYRINge IV ONE (20:14)
[2024-12-29] MEDS: magnesium sulf-water 2g/50mL 50 ML IV ONE (20:15)
[2024-12-29 20:42] LABS: BILIRUBIN,URINE NEGATIVE (Neg); CLARITY,URINE CLEAR (Clear); COLOR,URINE YELLOW (Yellow); GLUCOSE, URINE NEGATIVE (Neg); KETONES,URINE NEGATIVE (Neg); LEUKOCYTE ESTERASE ,URINE NEGATIVE (Neg); NITRITES, URINE NEGATIVE (Neg); OCCULT BLOOD,URINE NEGATIVE (Neg); PROTEIN,URINE NEGATIVE (Neg); UROBILINOGEN,URINE 0.2 E.U/dL (0.2-1.0)
[2024-12-29 20:44] LABS: UA COLLECTION TYPE CLN CATCH MIDSTREAM
[2024-12-29] MEDS ORDERED: ondansetron/PF 4mg/2ml inj IV PRN (21:05)
[2024-12-29] MEDS ORDERED: potassium Cl 40MEQ/1/2NS 520ml 520 ML IV PRN (21:05)
[2024-12-29] MEDS ORDERED: potassium Cl 20 mEq SR tablet PO PRN ×2 (21:05)
[2024-12-29] MEDS ORDERED: magnesium hydroxide 30ml (MOM) UD suspension PO PRN (21:05)
[2024-12-29] MEDS ORDERED: magnesium sulf-water 2g/50mL 50 ML IV PRN (21:05)
[2024-12-29] MEDS ORDERED: magnesium Cl slow-release 64mg tablet PO PRN (21:05)
[2024-12-29] MEDS ORDERED: mag hydrox/Alum hydrox/simeth 30ml oral suspension PO PRN (21:05)
[2024-12-29] MEDS ORDERED: magnesium sulf-water 4G/100mL 100 ML IV PRN (21:05)
[2024-12-29 22:14] LABS: OCCULT BLOOD STOOL NEGATIVE (Neg)
--- NOTE | 2024-12-29 22:34 | HISTORY AND PHYSICAL-Residence ---
History & Physical Providers to CC Resident Creating Document: DENISSE CARSON, RES ~ History of Present Illness Primary Medical Doctor: Criselda Tapia Reason for Admit\Complaint: Alcohol withdrawal seizure History of Present Illness 39 years old female patient with past medical history of lupus, alcohol use disorder, came to the hospital with chief complaint of witnessed seizure. The patient was recently discharged on 12/11/2024 due to similar episode of alcohol withdrawal seizure. After her discharge the patient endorses that she started drinking again last time she drank was on Saturday admitting to be drinking around a bottle of 750 mL of whiskey, after she drank patient mentioned that she has been feeling thirsty, she mentioned that she had an episode of seizure around 4:00 p.m. during the episode she endorses that she lost control on her urine. She did not bite her tongue, her fiance who lives close evidenced when the patient was having the seizure reason for which he decided to call to the ambulance and the patient was brought to the hospital. The patient also endorses some dizziness, visual hallucinations, she endorses writings in the floyd, sometimes seem faces, nausea and abdominal pain. She currently denies chest pain, shortness of breath, fever sensation. Allergies: Coded Allergies: tramadol (Verified Allergy, Intermediate, SEIZURES, 12/07/24) amoxicillin (Verified Allergy, Unknown, 12/07/24) Home Medications Home Medications Active [thiamine tablet] 100 MG Tablet 100 Mg PO DAILY 30 Days Folic Acid* (Folic Acid) Y Tab 1 Mg PO DAILY 30 Days Vitamin B-12* (Cyanocobalamin) 500 Mcg Tablet 1,000 Mcg PO DAILY 30 Days Furosemide 40 Mg Tablet 40 Mg PO DAILY 30 Days Lactulose 10 Gram/15 Ml Solution 20 Gm PO DAILY Gabapentin 100 Mg Capsule 100 Mg PO TID 30 Days Spironolactone 50 Mg Tablet 100 Mg PO DAILY@0830 30 Days Ativan (Lorazepam) 1 Mg Tablet 1 Tab PO Q12H PRN PRN Reported No Home Medications (Home Med List) Each Past Medical History Past Medical History Lupus. Alcohol use disorder. Past Surgical History Surgical History Comment Two C-sections. Right wrist orthopedic surgery. Family History Family History: FH: CABG (coronary artery bypass surgery) (Mother,) FH: cirrhosis (Father, in 72) FH: diabetes mellitus (Sister) Past Social History Smoking: Quit less than 1 year (As per patient she quit smoking three months ago, she used to smoke four cigarettes a day for at least three years.) Alcohol Use: Heavy (She endorses drinking around 750 mL of whiskey every day since seven months ago. Before that she used to drink wine every day since 2018.) Drug Use: None Lives with: Alone Lives In: Home Occupation: unemployed ROS All Other Systems: Reviewed and Negative Exam Vitals: Vital Signs Date Time Temp Pulse Resp B/P (MAP) Pulse Ox O2 Delivery O2 Flow Rate FiO2 12/29/24 20:14 14 12/29/24 18:55 131 137/96 (110) 96 0 12/29/24 15:32 98.3 Physical exam: General: Well alert, well oriented, not confused, moderately agitated, well cooperated during the physical. HEENT: Conjunctive are pink, sclerae clear, no icterus, pupil is equal in both sides, reactive to light, no ear discharge, no pharyngeal erythema or an edema. Neck: Supple, no JVD, no lymphadenopathy and thyromegaly. Chest: Equal air entry on both lungs, no additional sounds no rhonchi no wheezing at the moment. Cardiovascular: S1-S2 regular sinus rhythm and, regular rate, no gallops, no rubs, no murmurs Abdomen: No visible peristalsis, Bowel sounds present on auscultation, tenderness in the level of the epigastrium. Extremities: No obvious deformities, no pitting edema bilaterally, capillary refill intact, peripheral pulsations are intact on both sides Central Nervous System: No focal neurological deficits, no motor or sensory weakness in all 4 extremities, could move all 4 extremities, 2+ deep tendon reflexes, negative Babinski. Musculoskeletal: No joint swelling, deformities, inflammations, and no scoliosis and back tenderness Skin: Warm and dry, dry mouth. Diagnostic Data Last Recorded Lab Results: 12/29/24 1909 12/29/24 1803 Advance Care Planning Advanced Care plannin - 30 Minutes (I spent a total of 17 minutes on reviewing various resuscitative measures/ACP with the patient at the time of admission. The patient has decided on a full code status.) Additional Plan Assessment and plan: 39 years old female patient came to the hospital after a witnessed seizure in the setting of alcohol consumption. Seizure: Alcohol withdrawal: Elevated transaminases: The patient came to the hospital after a witnessed seizure, she accepts to be drinking around 750 mL of whiskey. Toxicology, ethyl alcohol levels 12. AST 462, ALT 218, normal bilirubin levels. Viral hepatitis panel on 12/11/2024: negative. Thiamine 200 mg IV t.i.d. Folic acid 1 mg IV daily. Diazepam 10 mg q.3h p.r.n. for anxiety. Haloperidol q.2h PRN for psychosis. Acute alcoholic pancreatitis: The patient presented to the hospital with tenderness at the level of the epigastrium. Lipase levels 120. Lactated ringer at 150 mL/hour. Morphine for pain control. Liver cirrhosis: Meld Na score lab: Less than 2% estimated 90 day mortality: Child post score class B (nine points): Abdominal ultrasound showed cirrhotic liver morphology on November with moderate perihepatic ascites. Follow-up ammonia levels. We will continue spironolactone and lactulose after med reconciliation. Hyperglycemia: Diabetes mellitus: Glucose levels 142. Hemoglobin A1c 7.1. Hyperglycemia/hypoglycemia protocol in place. Low-dose sliding scale short- acting insulin. Macrocytic anemia: Hemoglobin 12.4, MCV 110.8. Cyanocobalamin 1000 mcg daily. Hypoalbuminemia: Severe malnutrition: Nutrition consult. Code status: Full code DVT prophylaxis: SCDs Analgesia/sedation: Morphine Line/tube: PIV GI prophylaxis: Protonix Nutrition: 75 carb controlled diet after pass swallow screen. PT: Ordered Prognosis: Guarded Disposition: The patient will be admitted to ortho floor with telemetry. Denisse Miller Internal Medicine Resident [facility] I discussed the case [facility] resident and agree with the plan Beth Hernandez MD Critical Care Date of Service: December 29, 2024 Billing Provider: BETH HERNANDEZ MD,DENISSE GAFFNEY, RES December 29, 2024 22:34 BETH HERNANDEZ MD December 30, 2024 04:16
[2024-12-29] MEDS: acetaminophen 325mg tablet PO PRN (23:31)
[2024-12-29] MEDS: normal saline 1000ml 1,000 ML IV SCH (23:34)
[2024-12-30] MEDS ORDERED: haloperidol lactate 5mg/ml inj IM PRN
[2024-12-30] MEDS ORDERED: glucagon, human recombinant 1mg kit SUBCUT PRN (00:15)
[2024-12-30] MEDS ORDERED: DEXTROSE 15 GM of carb/4 tabs (each vial/BOTTLE has 4 tablets) PO PRN ×2 (00:15)
[2024-12-30] MEDS ORDERED: dextrose 50%-water 50ml dispensing syringe IV PRN ×2 (00:15)
[2024-12-30 00:56] LABS: URINE AMPHETAMINE SCREEN NEGATIVE (Neg); URINE BARBITUATE SCREEN NEGATIVE (Neg); URINE BENZODIAZEPINES SCREEN POSITIVE (Neg); URINE CANNABINOID SCREEN NEGATIVE (Neg); URINE COCAINE SCREEN NEGATIVE (Neg); URINE METHADONE SCREEN NEGATIVE (Neg); URINE OPIATE SCREEN NEGATIVE (Neg); URINE PHENCYCLIDINE SCREEN NEGATIVE (Neg)
[2024-12-30] MEDS: morphine 2 MG/ML inj. syringe IV PRN ×2 (00:59→05:19)
[2024-12-30] MEDS: ringers solution, lacted 1,000 ML IV SCH (00:59)
[2024-12-30 01:04] LABS: BASOPHILS % (AUTO) 0.2 % (0-1); EOSINOPHILS % (AUTO) 0.2 % (0-6); HEMATOCRIT 31.6 % (35.0-45.0); HEMOGLOBIN 10.9 g/dl (12.0-16.0); LYMPHOCYTES # (AUTO) 1.2 X10'3 (1.1-4.8); LYMPHOCYTES % (AUTO) 17.7 % (21-51); MEAN CORPUSCULAR HGB CONC 34.5 g/dL (33.0-36.5); MEAN CORPUSCULAR VOLUME 110.1 FL (78-98); MEAN PLATELET VOLUME 7.1 FL (7.4-10.4); MONOCYTES # (AUTO) 0.6 X10'3 (0-0.9); MONOCYTES % (AUTO) 8.6 % (2-12); NEUTROPHILS # (AUTO) 5.1 X10'3 (1.8-7.7); NEUTROPHILS % (AUTO) 73.3 % (42-75); PLATELET COUNT 160 X10'3 (140-440); RED BLOOD COUNT 2.87 X10'6 (4.20-5.60); RED CELL DISTRIBUTION WIDTH 14.4 % (11.5-14.5); WHITE BLOOD COUNT 6.9 X10'3 (4.5-11.0)
[2024-12-30 01:17] LABS: ALANINE AMINOTRANSFERASE 200 U/L (12-78); ALBUMIN 2.2 G/DL (3.4-5.0); ALBUMIN/GLOBULIN RATIO 0.8 (1.1-1.5); ALKALINE PHOSPHATASE 137 IU/L (46-116); ANION GAP 10 (8-16); ASPARTATE AMINO TRANSFERASE 391 U/L (10-37); BILIRUBIN,TOTAL 0.9 MG/DL (0.1-1.0); BLOOD UREA NITROGEN 3 MG/DL (7-18); BUN/CREATININE RATIO 3.1 (10.0-20.0); CALCIUM 6.9 MG/DL (8.5-10.1); CHLORIDE 96 MMOL/L (99-107); CREATININE 0.98 MG/DL (0.40-0.90); GLUCOSE 111 MG/DL (70-104); MAGNESIUM 1.7 MG/DL (1.5-2.4); PHOSPHORUS 3.1 MG/DL (2.3-4.5); POTASSIUM 3.6 MMOL/L (3.5-5.1); SODIUM 136 MMOL/L (135-145); TOTAL CARBON DIOXIDE 30.1 MMOL/L (24-32); TOTAL PROTEIN 4.9 G/DL (6.4-8.2); eCRCL 71 ML/MIN; eGFR 63 ML/MIN
[2024-12-30 01:53] VITALS: BP 140/93; PULSE 121; TEMP 98.4
[2024-12-30] MEDS: diazepam inj 5 MG/ML inj. IV PRN (02:32)
[2024-12-30 04:58] LABS: INR 1.4 INR; PROTHROMBIN TIME 13.5 SECONDS (9.0-12.0)
[2024-12-30 06:00] VITALS: BP 126/77; PULSE 122; RESP 18; TEMP 98.7; O2SAT 99
[2024-12-30] MEDS: INSULIN LISPRO 100 UNIT/ML INSULN.PEN MULTI-DOSE SQ SCH (07:00)
[2024-12-30 08:00] VITALS: RESP 23
[2024-12-30] MEDS: docusate sod 100mg capsule PO SCH (08:00)
[2024-12-30] MEDS: K and/or MAG REPLACEMENT MC SCH (08:00)
[2024-12-30] MEDS: cyanocobalamin 500mcg tablet PO SCH (08:20)
[2024-12-30] MEDS: pantoprazole 40mg Tablet.DR PO SCH (08:20)
[2024-12-30] MEDS: folic acid 1mg/0.2ml inj IV SCH (08:21)
[2024-12-30] MEDS: thiamine 100mg/ml 2ml inj. IV SCH (08:21)
[2024-12-30] MEDS ORDERED: loperamide 2mg capsule PO PRN (09:30)
[2024-12-30 10:00] VITALS: BP 135/88; PULSE 136; RESP 24; TEMP 97.4; O2SAT 100
[2024-12-30] MEDS: LORazepam 1 MG tablet PO PRN (10:34)
[2024-12-30] MEDS: HYDROcodone/acetaminophen 5mg/325mg tablet PO PRN (12:18)
--- NOTE | 2024-12-30 15:48 | PROGRESS NOTE ---
Daily Progress Note Providers to CC ~ Antibiotic Timeout Antibiotic Ordered?: No Subjective Patient is crying in bed due to bilateral lower extremity pain; has diarrhea Objective Vital Signs Date Time Temp Pulse Resp B/P (MAP) Pulse Ox O2 Delivery O2 Flow Rate FiO2 12/30/24 12:18 28 12/30/24 10:00 97.4 136 135/88 (104) 100 Room Air 12/29/24 23:39 0 Result Diagram: 12/30/24 0054 12/30/24 0054 Small frame woman in nonacute distress HEENT dry oral mucosa no JVD Lungs with normal bilateral entry no crackles no wheezing Heart tachycardic S1-S2 Abdomen is soft mild generalized tenderness no rebound or guarding bowel sounds are present Extremities no edema plus two pulses Alert and oriented grossly motor and sensory intact Coagulation Studies Laboratory Tests Test 12/30/24 04:38 Prothrombin Time 13.5 SECONDS (9.0-12.0) H INR International Normalized Ratio 1.4 INR Coagulation Comments Problem\Assessment\Plan Patient presents to the hospital after possible episode of seizure likely alcohol withdrawal related seizure; patient stated that her last drink was a few days back; she has been trying to get sober and she is trying to get into an alcohol rehab Alcohol withdrawal protocol with IV Valium and p.o. Ativan Patient stated that she has not been eating in about a week and she has been having diarrhea Bilateral lower extremity the pain which she attributes to her history of lupus Transaminitis likely alcohol-induced hepatitis Macrocytic anemia monitor Date of Service: December 30, 2024 Billing Provider: MICK SWANSON MD Common Visit Codes: [id number] INP/OBS CARE(HIGH) MICK SWANSON MD December 30, 2024 15:48
[2024-12-30 18:30] VITALS: BP 141/81; PULSE 132; RESP 15; TEMP 98.2; O2SAT 93
[2024-12-30 21:09] LABS: CHOL/HDL RATIO 3.4 (0.00-4.99); CHOLESTEROL 75 MG/DL (0-200); HDL CHOLESTEROL 22 MG/DL (35-60); LDL CHOLESTEROL 24 MG/DL (50-100); TRIGLYCERIDES 217 MG/DL (20-135)
[2024-12-30] MEDS: Melatonin 3mg tablet PO PRN (21:29)
[2024-12-30 22:00] VITALS: BP 136/89; PULSE 132; RESP 16; TEMP 98; O2SAT 98
[2024-12-31 04:56] LABS: BASOPHILS # (AUTO) 0.1 X10'3 (0-0.2); BASOPHILS % (AUTO) 1.5 % (0-1); EOSINOPHILS # (AUTO) 0.1 X10'3 (0-0.9); EOSINOPHILS % (AUTO) 2.2 % (0-6); HEMATOCRIT 27.4 % (35.0-45.0); HEMOGLOBIN 9.4 g/dl (12.0-16.0); LYMPHOCYTES # (AUTO) 1.5 X10'3 (1.1-4.8); LYMPHOCYTES % (AUTO) 35.2 % (21-51); MEAN CORPUSCULAR HEMOGLOBIN 38.4 PG (27.0-31.0); MEAN CORPUSCULAR HGB CONC 34.5 g/dL (33.0-36.5); MEAN CORPUSCULAR VOLUME 111.2 FL (78-98); MEAN PLATELET VOLUME 8.2 FL (7.4-10.4); MONOCYTES # (AUTO) 0.4 X10'3 (0-0.9); MONOCYTES % (AUTO) 8.4 % (2-12); NEUTROPHILS # (AUTO) 2.3 X10'3 (1.8-7.7); NEUTROPHILS % (AUTO) 52.7 % (42-75); PLATELET COUNT 121 X10'3 (140-440); RED BLOOD COUNT 2.46 X10'6 (4.20-5.60); RED CELL DISTRIBUTION WIDTH 14.6 % (11.5-14.5); WHITE BLOOD COUNT 4.3 X10'3 (4.5-11.0)
[2024-12-31 05:12] LABS: INR 1.2 INR; PROTHROMBIN TIME 12.4 SECONDS (9.0-12.0)
[2024-12-31 05:20] LABS: ALANINE AMINOTRANSFERASE 101 U/L (12-78); ALBUMIN 1.8 G/DL (3.4-5.0); ALBUMIN/GLOBULIN RATIO 0.7 (1.1-1.5); ALKALINE PHOSPHATASE 136 IU/L (46-116); ANION GAP 5 (8-16); ASPARTATE AMINO TRANSFERASE 120 U/L (10-37); BILIRUBIN,TOTAL 0.6 MG/DL (0.1-1.0); BLOOD UREA NITROGEN 5 MG/DL (7-18); BUN/CREATININE RATIO 8.2 (10.0-20.0); CALCIUM 7.6 MG/DL (8.5-10.1); CHLORIDE 104 MMOL/L (99-107); CREATININE 0.61 MG/DL (0.40-0.90); GLUCOSE 107 MG/DL (70-104); MAGNESIUM 1.5 MG/DL (1.5-2.4); PHOSPHORUS 2.7 MG/DL (2.3-4.5); SODIUM 139 MMOL/L (135-145); TOTAL CARBON DIOXIDE 30.1 MMOL/L (24-32); TOTAL PROTEIN 4.4 G/DL (6.4-8.2); eCRCL 115 ML/MIN; eGFR > 90 ML/MIN
[2024-12-31 05:37] LABS: LIPASE > 375 U/L (16-77)
[2024-12-31 06:00] VITALS: BP 129/92; PULSE 127; RESP 16; TEMP 98.1; O2SAT 98
[2024-12-31 10:00] VITALS: BP 133/89; PULSE 125; RESP 12; TEMP 97.5; O2SAT 98
[2024-12-31] MEDS ORDERED: LORazepam 1 MG tablet PO PRN (10:45)
[2024-12-31] MEDS: lactulose 20gm/30ml cup PO SCH (13:28)
[2024-12-31] MEDS: methylPREDNISolone sod succ 125mg/2ml vial IV ONE (13:29)
[2024-12-31 18:00] VITALS: BP 144/89; PULSE 119; RESP 16; TEMP 97.8; O2SAT 99
--- NOTE | 2024-12-31 19:19 | PROGRESS NOTE ---
Daily Progress Note Providers to CC ~ Antibiotic Timeout Antibiotic Ordered?: No Subjective The patient has tremor free and thus I am going to back down on the patient's PRN benzodiazepine. The patient states that she does not take any medications for lupus however she feels as if the pain in her legs are secondary to lupus flare-up and that she has received IV steroids in the past for lupus I started the patient on IV Solu-Medrol Objective Vital Signs Date Time Temp Pulse Resp B/P (MAP) Pulse Ox O2 Delivery O2 Flow Rate FiO2 12/31/24 17:20 15 12/31/24 10:00 97.5 125 133/89 (104) 98 Room Air 12/31/24 08:00 0.0 Result Diagram: 12/31/2443612/31/24436 Gen. No acute distress alert and oriented 4 Lungs clear to ascultation bilaterally, no wheezes rales or rhonchi appreciated Heart normal sinus rhythm no murmurs rubs or clicks noted Abdomen soft nontender bowel sounds are normoactive Lower extremities no clubbing cyanosis, nor edema appreciated bilaterally Coagulation Studies Laboratory Tests Test 12/31/24 04:37 Prothrombin Time 12.4 SECONDS (9.0-12.0) H INR International Normalized Ratio 1.2 INR Coagulation Comments Problem\Assessment\Plan Patient presents to the hospital after possible episode of seizure likely alcohol withdrawal related seizure; patient stated that her last drink was a few days back; she has been trying to get sober and she is trying to get into an alcohol rehab #Alcohol withdrawal protocol with IV Valium and p.o. Ativan- improving #Patient stated that she has not been eating in about a week and she has been having diarrhea #Bilateral lower extremity the pain which she attributes to her history of lupus- start IV Solu-Medrol #Transaminitis likely alcohol-induced hepatitis improving #Macrocytic anemia monitor Date of Service: December 31, 2024 Billing Provider: BURT HERNANDEZ DO Common Visit Codes: [id number] INP/OBS CARE(HIGH) BURT HERNANDEZ DO December 31, 2024 19:19
[2024-12-31] MEDS: LORazepam 2 mg/ml vial IM ONE (19:37)
[2024-12-31 20:00] VITALS: RESP 16; O2SAT 98
[2024-12-31] MEDS: LORazepam 1 MG tablet PO PRN (20:39)
[2024-12-31] MEDS: methylPREDNISolone sod succ 125mg/2ml vial IV SCH (20:39)
[2024-12-31 22:00] VITALS: BP 126/81; PULSE 125; RESP 16; TEMP 98.3; O2SAT 98
[2024-12-31] MEDS: diazepam inj 5 MG/ML inj. IV PRN (22:46)
[2025-01-01 06:00] VITALS: BP 151/99; PULSE 137; RESP 18; TEMP 98.1; O2SAT 98
[2025-01-01 06:54] LABS: BASOPHILS % (AUTO) 0 % (0-1); EOSINOPHILS % (AUTO) 0 % (0-6); HEMATOCRIT 29.8 % (35.0-45.0); HEMOGLOBIN 10.1 g/dl (12.0-16.0); LYMPHOCYTES # (AUTO) 0.6 X10'3 (1.1-4.8); LYMPHOCYTES % (AUTO) 8.2 % (21-51); MEAN CORPUSCULAR HEMOGLOBIN 37.6 PG (27.0-31.0); MEAN CORPUSCULAR HGB CONC 33.9 g/dL (33.0-36.5); MEAN CORPUSCULAR VOLUME 110.9 FL (78-98); MONOCYTES # (AUTO) 0.3 X10'3 (0-0.9); MONOCYTES % (AUTO) 3.3 % (2-12); NEUTROPHILS # (AUTO) 6.9 X10'3 (1.8-7.7); NEUTROPHILS % (AUTO) 88.5 % (42-75); PLATELET COUNT 128 X10'3 (140-440); RED BLOOD COUNT 2.69 X10'6 (4.20-5.60); RED CELL DISTRIBUTION WIDTH 14.6 % (11.5-14.5); WHITE BLOOD COUNT 7.8 X10'3 (4.5-11.0)
[2025-01-01 07:11] LABS: INR 1.1 INR; PROTHROMBIN TIME 11.5 SECONDS (9.0-12.0)
[2025-01-01 07:31] LABS: PLATELET ESTIMATE DECREASED
[2025-01-01 07:32] LABS: STOMATOCYTES FEW; TARGET CELLS FEW
[2025-01-01 07:35] LABS: ALANINE AMINOTRANSFERASE 82 U/L (12-78); ALBUMIN 2.2 G/DL (3.4-5.0); ALBUMIN/GLOBULIN RATIO 0.7 (1.1-1.5); ALKALINE PHOSPHATASE 149 IU/L (46-116); ANION GAP 5 (8-16); ASPARTATE AMINO TRANSFERASE 58 U/L (10-37); BILIRUBIN,TOTAL 0.6 MG/DL (0.1-1.0); BLOOD UREA NITROGEN 6 MG/DL (7-18); BUN/CREATININE RATIO 10.3 (10.0-20.0); CALCIUM 8.5 MG/DL (8.5-10.1); CHLORIDE 103 MMOL/L (99-107); CREATININE 0.58 MG/DL (0.40-0.90); GLUCOSE 157 MG/DL (70-104); MAGNESIUM 1.4 MG/DL (1.5-2.4); PHOSPHORUS 3.7 MG/DL (2.3-4.5); POTASSIUM 4.6 MMOL/L (3.5-5.1); PRO BRAIN NATRIURETIC PEPTIDE 3033 PG/ML (0-125); SODIUM 136 MMOL/L (135-145); TOTAL PROTEIN 5.3 G/DL (6.4-8.2); eCRCL 121 ML/MIN; eGFR > 90 ML/MIN
[2025-01-01 07:41] LABS: LIPASE > 375 U/L (16-77)
[2025-01-01 10:00] VITALS: BP 123/80; PULSE 145; RESP 18; TEMP 98.2; O2SAT 100
[2025-01-01 10:15] VITALS: BP 140/95; PULSE 139
[2025-01-01] MEDS: propranolol 10mg tablet PO ONE (10:16)
[2025-01-01] MEDS ORDERED: propranolol 10mg tablet PO SCH (13:00)
--- NOTE | 2025-01-01 20:51 | DISCHARGE SUMMARY ---
Discharge Summary Providers to CC ~ Discharge Summary Admission Diagnosis: Alcohol withdrawal seizure Hospital Course DATE OF ADMISSION: 12/29/2024 DATE OF DISCHARGE: Left AMA on 01/01/2025 at 12:18 p.m. Discharge Diagnosis\\Comment: Alcohol withdrawal with donald seizure, diarrhea, bilateral lower extremity pain possibly secondary to lupus flare-up, transaminitis, microcytic anemia Operations\\Procedures: None Consultants: None Complications: None Condition on DC: Stable Discharge Summary: The patient was admitted by resident physician DENISSE Morton under the supervision of EULALIA Lozano MD with the following HPI:"39 years old female patient with past medical history of lupus, alcohol use disorder, came to the hospital with chief complaint of witnessed seizure. The patient was recently discharged on 12/11/2024 due to similar episode of alcohol withdrawal seizure. After her discharge the patient endorses that she started drinking again last time she drank was on Saturday admitting to be drinking around a bottle of 750 mL of whiskey, after she drank patient mentioned that she has been feeling thirsty, she mentioned that she had an episode of seizure around 4:00 p.m. during the episode she endorses that she lost control on her urine. She did not bite her tongue, her fiance who lives close evidenced when the patient was having the seizure reason for which he decided to call to the ambulance and the patient was brought to the hospital. The patient also endorses some dizziness, visual hallucinations, she endorses writings in the floyd, sometimes seem faces, nausea and abdominal pain. She currently denies chest pain, shortness of breath, fever sensation." The patient is on if any donald seizures during hospitalization she continued to have moderate amount of tremors when I evaluated her in the morning of the the patient had informed me she had lower extremity pain which she attributed to a lupus flare-up and informed me she had received IV steroid previously for this gave the patient one time dose of Solu-Medrol 125 mg. The patient has a microcytic anemia her hemoglobin was 12.4 on admission there was a drop her hemoglobin and then stabilized and was 10.1 on the day of discharge did drop her platelet count somewhat to -128 on day of discharge Patient initially had an elevated ammonia level as well a 57 this did downtrend to 33 on the day discharge. Patient had complain of diarrhea and initially as well stool was checked for occult blood which was negative the patient had four bowel movements on the and four on the The patient had a initial serum potassium of 3.0 on admission however this normalized to 3.6 and then remained in normal range. The patient has a transaminitis her liver function did improve during hospitalization significantly and nearly normalized this was secondary to alcohol abuse. IM was informed by the patient's RN that the patient wanted to leave AMA and I was in route to evaluate the patient at the time of the page at 12:14 when I went into the room the patient was insistent on leaving and would informed me that there was a problem that occurred in the morning when I spoke to nursing staff both the charge nurse and the patient's nurse both could not formulate a reason why the the patient was upset and I spoke with the patient she would not informed me with a either what was the issue at hand. I did ask offered to discharge the patient I did request that I could examine her and the patient has had no I want to leave now the patient left AMA after signing the paperwork at 12:18 p.m. *Problems/Diagnosis: (1) Alcohol withdrawal syndrome Status: Acute Total Time Spent on D/C: Up to 30 Minutes Date of Service: January 01, 2025 Billing Provider: BURT HERNANDEZ DO Common Visit Codes: NOT BILLABLE (Left AMA at 12:18 p.m.) BURT HERNANDEZ DO January 01, 2025 20:51
[2025-01-02] MEDS ORDERED: thiamine 100mg tablet PO SCH (08:00)
[2025-01-03] MEDS ORDERED: folic acid 1mg tablet PO SCH (08:00)
== END 2025-01-01 12:20 | disposition left against medical advice (07) | DRG 53 ==
LOC: ER 15:26 → ED HOLD 21:05 → UNDOADMIN 21:05 → ED HOLD 21:50 → EDBEDREQSVC 22:06 → EDBEDREQ 22:06 → ORTHO 4S 12-30 01:42
PROVIDERS: ADMIT Internal Medicine Pulmonary Disease; ATTEND Internal Medicine
DX: R56.9 Unspecified convulsions (principal); K85.20 Alcohol induced acute pancreatitis without necrosis or infection; E43 Unspecified severe protein-calorie malnutrition; E88.09 Other disorders of plasma-protein metabolism, not elsewhere classified; K74.60 Unspecified cirrhosis of liver; M32.9 Systemic lupus erythematosus, unspecified; D50.9 Iron deficiency anemia, unspecified; F10.239 Alcohol dependence with withdrawal, unspecified; E11.65 Type 2 diabetes mellitus with hyperglycemia; Z53.29 Procedure and treatment not carried out because of patient's decision for other reasons; R25.1 Tremor, unspecified; Z83.3 Family history of diabetes mellitus; Z88.8 Allergy status to other drugs, medicaments and biological substances; Z87.891 Personal history of nicotine dependence; Z56.0 Unemployment, unspecified; Z68.22 Body mass index [BMI] 22.0-22.9, adult; Z79.899 Other long term (current) drug therapy
CPT/HCPCS: 36415; 70450; 71045; 80053; 80061; 80305; 80320; 81003; 82140; 82272; 82550; 82948; 83690; 83735; 83880; 84100; 84484; 84703; 85008; 85025; 85610; 87081; 93005; 96361; 96365; 96367; 96375; 97161; 97530; 99285; A6250; G0378; J1815; J1953; J2060; J2270; J2405; J2919; J3360; J3411; J3480; J3490; J7030; J7120

== ENCOUNTER 2025-01-30 11:22 | Inpatient (IN) | payer MEDICAID ==
[~2025-01-30] VITALS: Ht 167.6 cm; Wt 54.5 kg
--- NOTE | 2025-01-30 12:14 | Physician Documentation ---
History of Present Illness ~ Chief Complaint: ETOH Stated Complaint: FLU SYMPTOMS Time Seen by MD: 11:36 Primary Medical Doctor: [facility] Mode of Arrival: Ambulatory HPI 39-year-old female with a history of alcohol dependence presenting with alcohol withdrawal. Patient reports that several days ago she was hospitalized for the same reason and left against medical advice. She subsequently drank once again two days ago her last drink being evening. She states that since that time she has been very nauseated and has started to shake once again. She is extremely anxious. Patient reports that she has had instances where she has seizures as a result of the withdrawals in the past. Additionally she was hallucinating while she was in the hospital several days ago. For the past day she denies any seizures or hallucinations but states that she has been very shaky and anxious as well as extremely nauseated. The patient is trying to get clean and plans on attending a rehab facility down in [place] once she has detoxed. Medication Reconciliation Allergies: Coded Allergies: tramadol (Verified Allergy, Intermediate, SEIZURES, 12/07/24) amoxicillin (Verified Allergy, Unknown, 12/07/24) Discontinued Medications Cyanocobalamin* (Vitamin B-12*), 1,000 MCG PO DAILY Discontinued Reason: patient no longer taking Folic Acid* (Folic Acid*), 1 MG PO DAILY Discontinued Reason: patient no longer taking Furosemide (Furosemide), 40 MG PO DAILY Discontinued Reason: patient no longer taking Gabapentin (Gabapentin), 100 MG PO TID Discontinued Reason: patient no longer taking Home Med List (No Home Medications), (Reported) Discontinued Reason: patient no longer taking Lactulose (Lactulose), 20 GM PO DAILY Discontinued Reason: patient no longer taking Lorazepam (Ativan), 1 TAB PO Q12H PRN PRN for anxiety Discontinued Reason: patient no longer taking Spironolactone (Spironolactone), 100 MG PO DAILY@0830 Discontinued Reason: patient no longer taking [thiamine tablet], 100 MG PO DAILY Discontinued Reason: patient no longer taking Past Medical History Past Medical History: Seizures Past Surgical History: noncontributory Patient History: FH: CABG (coronary artery bypass surgery) (Mother,) FH: cirrhosis (Father, in 72) FH: diabetes mellitus (Sister) Alcohol Use: Heavy Drug Use: none Lives with: Alone Lives In: Home Occupation: unemployed Review of Systems All Other Systems at this time: Reviewed and Negative Physical Exam Vital Signs: Temperature: 98.0, Source: Temporal, Heart Rate: 160, Respiratory Rate: 18, BP: 122/71, Pulse Oximetry: 100, Weight: 54.550 Oxygen Flow Rate: 0 Physical Exam I have reviewed the triage vitals. CONST: Well developed and well nourished. HENT: Head Atraumatic EYES: Pupils are equal, round and reactive to light. Normal conjunctiva NECK: Normal range of motion. Supple. CARDIO: Tachycardic No murmurs, rubs, or gallops. S1, S2. PULM/CHEST: No respiratory distress. Lungs clear to auscultation. No wheeze ABD: Soft and nontender. Nondistended. Bowel sounds normal. No guarding. : Exam deferred MSK: No edema. No deformity. NEURO: Alert and oriented to person, place and time. Moving all extremities. Tremulous. SKIN: Warm and dry. PSYCH: Very anxious. Good eye contact. Progress Results/Orders Results/Orders Orders - BRITTANY BLANCA MD Chest,Single View (01/30/25 11:42) Monitor (01/30/25 11:42) Saline Lock (01/30/25 11:42) Oxygen (01/30/25 11:42) Electrocardiogram (01/30/25 11:42) Hs Troponin I W Calculations (01/30/25 13:42) Hs Troponin I W Calculations (01/30/25 14:42) Page Hospitalist (01/30/25 15:08) Fill Out Med Reconciliation (01/30/25 15:08) Magnesium Sulf-Water 4g/100ml (Magnesium (01/30/25 15:15) Potassium Cl 10meq/100ml Bag (Potassium (01/30/25 15:35) Completed Orders - BRITTANY BLANCA MD Chest,Single View (01/30/25 11:42) Cbc/Diff (01/30/25 11:42) BMP (01/30/25 11:42) PBNP (01/30/25 11:42) Hs Troponin I W Calculations (01/30/25 11:42) MG (01/30/25 12:05) Ethanol (01/30/25 12:05) Liver Panel (01/30/25 12:05) Diazepam Inj (Valium Inj) (01/30/25 12:05) Normal Saline 1000ml (Sodium Chloride 10 (01/30/25 12:05) Normal Saline 1000ml (Sodium Chloride 10 (01/30/25 12:05) Ondansetron Inj. (Zofran 4mg/2ml Vial) (01/30/25 12:05) Pantoprazole 40mg Iv (Protonix 40mg Iv) (01/30/25 12:05) Thiamine Tablet (Thiamine Tablet) (01/30/25 12:10) Folic Acid Tablet (Folic Acid Tablet) (01/30/25 12:10) Ketorolac Trometh 30mg/Ml Vial (Toradol (01/30/25 12:30) Diazepam Inj (Valium Inj) (01/30/25 13:10) Morphine 2mg/Ml Inj. (Morphine Inj.) (01/30/25 13:15) Potassium Cl Sr Tablet (K-Dur Tablet) (01/30/25 15:35) Medications Received in ER Medications (Trade) Dose Ordered Sig/Rosales Route PRN Reason Start Time Stop Time Status Last Admin Dose Admin (Valium inj) 10 mg ONCE ONCE IV 01/30/25 12:05 01/30/25 12:08 DC 01/30/25 12:24 10 MG Sodium Chloride 1,000 ml @ 1,000 mls/hr ONCE ONCE IV 01/30/25 12:05 01/30/25 13:04 DC 01/30/25 12:25 1,000 MLS/HR Sodium Chloride 1,000 ml @ 1,000 mls/hr ONCE ONCE IV 01/30/25 12:05 01/30/25 13:04 DC 01/30/25 12:25 1,000 MLS/HR (Zofran 4mg/2ml vial) 4 mg ONCE ONCE IV 01/30/25 12:05 01/30/25 12:08 DC 01/30/25 12:25 4 MG (Protonix 40mg IV) 40 mg ONCE ONCE IV 01/30/25 12:05 01/30/25 12:08 DC 01/30/25 12:24 40 MG (thiamine tablet) 100 mg ONCE ONCE PO 01/30/25 12:10 01/30/25 12:11 DC 01/30/25 12:26 100 MG (folic acid tablet) 1 mg ONCE ONCE PO 01/30/25 12:10 01/30/25 12:13 DC 01/30/25 12:25 1 MG (Toradol inj. 30mg/ml) 30 mg ONCE ONCE IV 01/30/25 12:30 01/30/25 12:31 DC 01/30/25 12:39 30 MG (Valium inj) 10 mg ONCE ONCE IV 01/30/25 13:10 01/30/25 13:12 DC 01/30/25 13:17 10 MG (morphine inj.) 2 mg ONCE ONCE IV 01/30/25 13:15 01/30/25 13:16 DC 01/30/25 13:48 2 MG Magnesium Sulfate 100 ml @ 25 mls/hr ONCE ONCE IV 01/30/25 15:15 01/30/25 19:14 01/30/25 15:33 25 MLS/HR (K-DUR tablet) 40 meq ONCE STAT PO 01/30/25 15:35 01/30/25 15:38 DC 01/30/25 15:45 40 MEQ Potassium Chloride 100 ml @ 100 mls/hr Q1H IV 01/30/25 15:35 01/30/25 16:34 01/30/25 15:45 100 MLS/HR Vital Signs 01/30/25 01/30/25 01/30/25 01/30/25 11:29 11:43 12:39 12:45 Temp 98.0 Pulse 82 160 144 Resp 16 18 16 16 B/P (MAP) 122/71 115/82 (93) Pulse Ox 98 100 98 O2 Flow Rate 0 0 0 01/30/25 01/30/25 01/30/25 01/30/25 13:11 13:39 13:48 14:11 Pulse 145 Resp 16 18 16 16 B/P (MAP) 123/78 (93) Pulse Ox 98 O2 Flow Rate 0 01/30/25 01/30/25 14:38 15:46 Pulse 130 125 Resp 18 16 B/P (MAP) 119/81 (94) 116/89 (98) Pulse Ox 98 98 O2 Flow Rate 0 0 Laboratory Tests Test 01/30/25 12:21 01/30/25 15:13 White Blood Count 3.7 L Red Blood Count 3.78 L Hemoglobin 13.7 Hematocrit 41.1 Mean Corpuscular Volume 108.6 H Mean Corpuscular Hemoglobin 36.3 H Mean Corpuscular Hemoglobin Concent 33.4 Red Cell Distribution Width 14.1 Platelet Count 229 Mean Platelet Volume 8.5 Neutrophils (%) (Auto) 61.8 Lymphocytes (%) (Auto) 21.5 Monocytes (%) (Auto) 15.8 H Eosinophils (%) (Auto) 0.2 Basophils (%) (Auto) 0.7 Neutrophils # (Auto) 2.3 Lymphocytes # (Auto) 0.8 L Monocytes # (Auto) 0.6 Eosinophils # (Auto) 0.0 Basophils # (Auto) 0.0 CBC Comment Sodium Level 136 Potassium Level 2.7 *L Chloride Level 92 L Carbon Dioxide Level 28.5 Anion Gap 16 Blood Urea Nitrogen 0 L Creatinine 0.84 Estimated GFR/1.73 m2 75 BUN/Creatinine Ratio 0.0 L Glucose Level 235 H Calcium Level 7.9 L Magnesium Level 1.3 L Total Bilirubin 1.1 H Direct Bilirubin 0.6 H Aspartate Amino Transf (AST/SGOT) 625 H Alanine Aminotransferase (ALT/SGPT) 195 H Alkaline Phosphatase 289 H Troponin I High Sensitivity 8 Pro-B-Type Natriuretic Peptide < 30 Total Protein 5.2 L Albumin 2.2 L Globulin 3.0 Albumin/Globulin Ratio 0.7 L Chemistry Comments Ethyl Alcohol Level 236 H EKG/XRAY/CT/US/VASC/MRI EKG : Additional Comment Sinus tachycardia at a rate of 158 beats per minute, no ST changes, normal axis Medical Decision Making Additional Comment 39-year-old female presenting with significant ETOH withdrawal. She is very tremulous and anxious. She was given a total of 20 mg of IV Valium in two separate doses. Was also treated with 2 L of IV normal saline, 4 mg IV Zofran and 40 mg of IV Protonix. Was given oral thiamine and folate. Patient hypokalemic with a potassium of 2.7 as well as hypomagnesemic with magnesium of 1.3. She was started on replacement. She will require admission for further treatment and care. Departure Disposition: ADMITTED INPATIENT Admission Level of Care: Med/Surg with Tele Impression: Primary Impression: Alcohol withdrawal Additional Impressions: Hypokalemia Hypomagnesemia Referrals: NO PRIMARY CARE PROVIDER (PCP) Signature Scribe Signature: 1 Attestation: 1 BRITTANY BLANCA MD Jan 30, 2025 12:14
[2025-01-30] MEDS: pantoprazole 40 MG vial IV ONE (12:24)
[2025-01-30] MEDS: diazepam inj 5 MG/ML inj. IV ONE ×2 (12:24→13:17)
[2025-01-30] MEDS: folic acid 1mg tablet PO ONE (12:25)
[2025-01-30] MEDS: ondansetron/PF 4mg/2ml inj IV ONE (12:25)
[2025-01-30] MEDS: normal saline 1000ml 1,000 ML IV ONE ×2 (12:25)
[2025-01-30] MEDS: thiamine 100mg tablet PO ONE (12:26)
[2025-01-30] MEDS: ketorolac trometh 30MG/ML vial 30 MG/ML VIAL IV ONE (12:39)
--- NOTE | 2025-01-30 12:41 | RADIOLOGY REPORT ---
CHEST RADIOGRAPH Indication: CP Technique: Single frontal view of the chest was obtained COMPARISON: DI CHEST,SINGLE VIEW on DOS: 12/29/24, DI CHEST,SINGLE VIEW on DOS: 12/05/24, DI CHEST,SING LE VIEW on DOS: 03/12/24, DI CHEST,SINGLE VIEW on DOS: 12/10/23, DI CHEST,SINGLE VIEW on DOS: 11/07/23 FINDINGS: Lines and Tubes: None Lungs: Clear Pleura: No effusion. No pneumothorax. Cardiomediastinal contours: Unremarkable Bones: Unremarkable IMPRESSION: 1. No acute disease.
[2025-01-30 12:52] LABS: HEMATOCRIT 41.1 % (35.0-45.0); RED BLOOD COUNT 3.78 X10'6 (4.20-5.60); WHITE BLOOD COUNT 3.7 X10'3 (4.5-11.0)
[2025-01-30 12:54] LABS: BASOPHILS % (AUTO) 0.7 % (0-1); EOSINOPHILS % (AUTO) 0.2 % (0-6); HEMOGLOBIN 13.7 g/dl (12.0-16.0); LYMPHOCYTES # (AUTO) 0.8 X10'3 (1.1-4.8); LYMPHOCYTES % (AUTO) 21.5 % (21-51); MEAN CORPUSCULAR HEMOGLOBIN 36.3 PG (27.0-31.0); MEAN CORPUSCULAR HGB CONC 33.4 g/dL (33.0-36.5); MEAN CORPUSCULAR VOLUME 108.6 FL (78-98); MEAN PLATELET VOLUME 8.5 FL (7.4-10.4); MONOCYTES # (AUTO) 0.6 X10'3 (0-0.9); MONOCYTES % (AUTO) 15.8 % (2-12); NEUTROPHILS # (AUTO) 2.3 X10'3 (1.8-7.7); NEUTROPHILS % (AUTO) 61.8 % (42-75); PLATELET COUNT 229 X10'3 (140-440); RED CELL DISTRIBUTION WIDTH 14.1 % (11.5-14.5)
[2025-01-30 13:13] LABS: ALANINE AMINOTRANSFERASE 195 U/L (12-78); ALBUMIN 2.2 G/DL (3.4-5.0); ALBUMIN/GLOBULIN RATIO 0.7 (1.1-1.5); ALKALINE PHOSPHATASE 289 IU/L (46-116); ANION GAP 16 (8-16); ASPARTATE AMINO TRANSFERASE 625 U/L (10-37); BILIRUBIN,DIRECT 0.6 MG/DL (0-0.3); BILIRUBIN,TOTAL 1.1 MG/DL (0.1-1.0); CALCIUM 7.9 MG/DL (8.5-10.1); CHLORIDE 92 MMOL/L (99-107); CREATININE 0.84 MG/DL (0.40-0.90); ETHANOL 236 MG/DL (<10); GLUCOSE 235 MG/DL (70-104); MAGNESIUM 1.3 MG/DL (1.5-2.4); PRO BRAIN NATRIURETIC PEPTIDE < 30 PG/ML (0-125); SODIUM 136 MMOL/L (135-145); TOTAL CARBON DIOXIDE 28.5 MMOL/L (24-32); TOTAL PROTEIN 5.2 G/DL (6.4-8.2); eCRCL 77 ML/MIN; eGFR 75 ML/MIN
[2025-01-30 13:17] LABS: POTASSIUM 2.7 MMOL/L (3.5-5.1)
[2025-01-30 13:34] LABS: BLOOD UREA NITROGEN 0 MG/DL (7-18)
[2025-01-30] MEDS: morphine 2 MG/ML inj. syringe IV ONE (13:48)
[2025-01-30] MEDS: magnesium sulf-water 4G/100mL 100 ML IV ONE (15:33)
[2025-01-30] MEDS: potassium CL 10mEq/100ml bag 100 ML IV SCH (15:45)
[2025-01-30] MEDS: potassium Cl 20 mEq SR tablet PO STA (15:45)
--- NOTE | 2025-01-30 16:17 | ELECTROCARDIOGRAPH REPORT ---
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
[2025-01-30] MEDS ORDERED: magnesium Cl slow-release 64mg tablet PO PRN (16:20)
[2025-01-30] MEDS ORDERED: haloperidol lactate 5mg/ml inj IM PRN (16:20)
[2025-01-30] MEDS ORDERED: potassium Cl 20 mEq SR tablet PO PRN ×2 (16:20)
[2025-01-30] MEDS ORDERED: magnesium hydroxide 30ml (MOM) UD suspension PO PRN (16:20)
[2025-01-30] MEDS ORDERED: acetaminophen 325mg tablet PO PRN (16:20)
[2025-01-30] MEDS ORDERED: magnesium sulf-water 2g/50mL 50 ML IV PRN (16:20)
[2025-01-30] MEDS ORDERED: dicyclomine 10 MG capsule PO PRN (16:20)
[2025-01-30] MEDS ORDERED: LORazepam 1 MG tablet PO PRN (16:20)
[2025-01-30] MEDS ORDERED: mag hydrox/Alum hydrox/simeth 30ml oral suspension PO PRN (16:20)
[2025-01-30] MEDS ORDERED: magnesium sulf-water 4G/100mL 100 ML IV PRN (16:20)
[2025-01-30] MEDS ORDERED: haloperidol 5mg tablet PO PRN (16:20)
[2025-01-30] MEDS ORDERED: cloNIDine 0.1 mg tablet PO PRN (16:20)
[2025-01-30] MEDS ORDERED: HYDROcodone/acetaminophen 5mg/325mg tablet PO PRN (16:20)
--- NOTE | 2025-01-30 16:28 | HISTORY AND PHYSICAL ---
History & Physical Providers to CC ~ History of Present Illness Reason for Admit\Complaint: DTs History of Present Illness History of present illness patient is a pleasant 39-year-old that was just recently discharged from the hospital she was supposed to go to a rehab for EtOH abuse but says something happened with her insurance it all got denied and now she started drinking again on when she had cravings. And now her legs hurt she does not feel good she is tremulous she is trying to cut down she is unable to cut down because her insurance got canceled. Patient was just discharged by Dr. Miller on 01/01/2025. Allergies: Coded Allergies: tramadol (Verified Allergy, Intermediate, SEIZURES, 12/07/24) amoxicillin (Verified Allergy, Unknown, 12/07/24) Home Medications Home Medications Active [thiamine tablet] 100 MG Tablet 100 Mg PO DAILY 30 Days Folic Acid* (Folic Acid) Y Tab 1 Mg PO DAILY 30 Days Vitamin B-12* (Cyanocobalamin) 500 Mcg Tablet 1,000 Mcg PO DAILY 30 Days Furosemide 40 Mg Tablet 40 Mg PO DAILY 30 Days Lactulose 10 Gram/15 Ml Solution 20 Gm PO DAILY Gabapentin 100 Mg Capsule 100 Mg PO TID 30 Days Spironolactone 50 Mg Tablet 100 Mg PO DAILY@0830 30 Days Ativan (Lorazepam) 1 Mg Tablet 1 Tab PO Q12H PRN PRN Reported No Home Medications (Home Med List) Each Past Medical History Past Medical History Lupus. Alcohol use disorder. Past Surgical History Surgical History Comment Two C-sections. Right wrist orthopedic surgery. Family History Family History: FH: CABG (coronary artery bypass surgery) (Mother,) FH: cirrhosis (Father, in 72) FH: diabetes mellitus (Sister) Past Social History Smoking: Quit less than 1 year (As per patient she quit smoking three months ago, she used to smoke four cigarettes a day for at least three years.) Alcohol Use: Heavy (She endorses drinking around 750 mL of whiskey every day since seven months ago. Before that she used to drink wine every day since 2018.) Drug Use: None Lives with: Alone Lives In: Home Occupation: unemployed Allergies: Coded Allergies: tramadol (Verified Allergy, Intermediate, SEIZURES, 12/07/24) amoxicillin (Verified Allergy, Unknown, 12/07/24) Home Medications Home Medications Active Family History Family History: FH: CABG (coronary artery bypass surgery) (Mother,) FH: cirrhosis (Father, in 72) FH: diabetes mellitus (Sister) Exam Vitals: Vital Signs Date Time Temp Pulse Resp B/P (MAP) Pulse Ox O2 Delivery O2 Flow Rate FiO2 01/30/25 15:46 125 16 116/89 (98) 98 0 01/30/25 11:29 98.0 General: Patient is alert and oriented x4 in no acute distress HEENT normocephalic nontraumatic head PERRLA. EOMI. Conjunctivae are pink. Sclerae are anicteric. CVS first and second heart sounds are and sinus tachycardia Respiratory system is clear to auscultate bilaterally no rales rhonchi crackles or wheezing Abdomen is soft bowel sounds are positive nontender nondistended no masses or fluid thrill appreciated Extremities no clubbing cyanosis or edema Neurological exam no focal deficits Diagnostic Data Last Recorded Lab Results: 01/30/25 1221 01/30/25 1221 Additional Plan A/P --DT'S STARTED PROTOCOL SUBS ABUSE NAVIGATOR CONSULTED REPLACED MVI, FA, THIAMIN Start the patient on Protonix for GI prophylaxis -history of SLE -anemia monitor -leukopenia monitor WBCs -has a with a blood sugars of 235 no history of diabetes -HYPOKALEMIA-REPLACE PER PROTOCOL -HYPOMAGNESIMIA-REPLACE PER PROTOCOL -START DVT PROPHYLAXIS Date of Service: Jan 30, 2025 Billing Provider: CARMELITA GARCIA MD Common Visit Codes: [id number] INP/OBS CARE (HIGH) CARMELITA GARCIA MD Jan 30, 2025 16:28
[2025-01-30] MEDS: dextrose 5%-1/2 normal saline 1,000 ML IV SCH (16:44)
[2025-01-30] MEDS: LORazepam 2 mg/ml vial IV PRN (19:47)
[2025-01-30 19:50] VITALS: BP 132/70; PULSE 119; RESP 21; TEMP 98.1; O2SAT 96
[2025-01-30] MEDS: ondansetron/PF 4mg/2ml inj IV PRN (19:53)
[2025-01-30] MEDS ORDERED: LORazepam 2 mg/ml vial IV PRN (19:55)
[2025-01-30] MEDS: K and/or MAG REPLACEMENT MC SCH (20:00)
[2025-01-30] MEDS: docusate sod 100mg capsule PO SCH (20:00)
[2025-01-30] MEDS: morphine 2 MG/ML inj. syringe IV PRN (20:56)
[2025-01-30] MEDS: thiamine 100mg/ml 2ml inj. IV SCH (20:58)
[2025-01-30 22:00] VITALS: BP 118/64; PULSE 106; RESP 18; TEMP 97; O2SAT 98
[2025-01-30] MEDS: diazepam inj 5 MG/ML inj. IV SCH (23:26)
[2025-01-30] MEDS: potassium Cl 40MEQ/1/2NS 520ml 520 ML IV PRN (23:35)
[2025-01-31] VITALS (9 sets, daily range): BP systolic 102–137; BP diastolic 51–86; PULSE 98–129; RESP 13–20; TEMP 96.6–98.7; O2SAT 96–100
[2025-01-31] MEDS: zolpidem 5mg tablet PO PRN (01:00)
[2025-01-31 02:45] LABS: BASOPHILS % (AUTO) 0.5 % (0-1); EOSINOPHILS % (AUTO) 0.3 % (0-6); HEMATOCRIT 29.1 % (35.0-45.0); HEMOGLOBIN 9.8 g/dl (12.0-16.0); LYMPHOCYTES # (AUTO) 0.9 X10'3 (1.1-4.8); LYMPHOCYTES % (AUTO) 35.4 % (21-51); MEAN CORPUSCULAR HEMOGLOBIN 36.3 PG (27.0-31.0); MEAN CORPUSCULAR HGB CONC 33.8 g/dL (33.0-36.5); MEAN CORPUSCULAR VOLUME 107.5 FL (78-98); MEAN PLATELET VOLUME 8.5 FL (7.4-10.4); MONOCYTES # (AUTO) 0.3 X10'3 (0-0.9); MONOCYTES % (AUTO) 11.4 % (2-12); NEUTROPHILS # (AUTO) 1.3 X10'3 (1.8-7.7); NEUTROPHILS % (AUTO) 52.4 % (42-75); PLATELET COUNT 109 X10'3 (140-440); RED BLOOD COUNT 2.71 X10'6 (4.20-5.60); WHITE BLOOD COUNT 2.6 X10'3 (4.5-11.0)
[2025-01-31 03:01] LABS: ALANINE AMINOTRANSFERASE 156 U/L (12-78); ALBUMIN 1.7 G/DL (3.4-5.0); ALBUMIN/GLOBULIN RATIO 0.7 (1.1-1.5); ALKALINE PHOSPHATASE 217 IU/L (46-116); AMYLASE 17 U/L (25-115); ANION GAP 13 (8-16); ASPARTATE AMINO TRANSFERASE 479 U/L (10-37); BLOOD UREA NITROGEN 1 MG/DL (7-18); BUN/CREATININE RATIO 1.1 (10.0-20.0); CALCIUM 6.4 MG/DL (8.5-10.1); CHLORIDE 93 MMOL/L (99-107); CREATININE 0.93 MG/DL (0.40-0.90); GLUCOSE 110 MG/DL (70-104); LIPASE 20 U/L (16-77); MAGNESIUM 1.9 MG/DL (1.5-2.4); PHOSPHORUS 4.8 MG/DL (2.3-4.5); POTASSIUM 3.8 MMOL/L (3.5-5.1); SODIUM 130 MMOL/L (135-145); TOTAL CARBON DIOXIDE 24.3 MMOL/L (24-32); eCRCL 69 ML/MIN; eGFR 67 ML/MIN
[2025-01-31 03:07] LABS: PLATELET ESTIMATE DECREASED; TOTAL CELLS COUNTED 100
[2025-01-31 06:41] LABS: INR 1.6 INR; PROTHROMBIN TIME 15.4 SECONDS (9.0-12.0)
[2025-01-31] MEDS: pantoprazole 40mg Tablet.DR PO SCH (07:30)
[2025-01-31] MEDS: folic acid 1mg/0.2ml inj IV SCH (07:46)
[2025-01-31] MEDS: enoxaparin 40mg/0.4ml syringe SUBCUT SCH (07:58)
[2025-01-31] MEDS: nicotine 14mg patch - 24hr TD SCH (07:59)
[2025-01-31] MEDS: multivitamins, therapeutics tablet PO SCH (08:00)
[2025-01-31] MEDS ORDERED: multivitamins, therapeutics tablet PO SCH ×2 (08:00)
--- NOTE | 2025-01-31 09:08 | PROGRESS NOTE ---
Daily Progress Note Providers to CC ~ Antibiotic Timeout Antibiotic Ordered?: No Subjective Chief complaint still having a lot of pain in my lower extremities I think my lupus is flaring up I do not want anything orally I want you to give me IV pain medications the morphine that you gave me only help for 35 minutes and then the pain restarted. Review of systems negative for all 10 systems reviewed Objective Vital Signs Date Time Temp Pulse Resp B/P (MAP) Pulse Ox O2 Delivery O2 Flow Rate FiO2 01/31/25 06:02 20 96 Nasal Cannula 2.0 01/31/25 06:00 97.3 116 103/51 (68) Result Diagram: 01/31/2522701/31/25227 Patient is alert and oriented x4 in mild distress crying. Patient has bilateral upper extremity tremors HEENT normocephalic nontraumatic head CVS first and second heart sounds are and sinus tachycardia Respiratory system is clear to auscultate bilaterally no rales rhonchi crackles or wheezing Abdomen is soft bowel sounds are positive nontender nondistended Extremities no clubbing cyanosis or edema Coagulation Studies Laboratory Tests Test 01/31/25 05:53 Prothrombin Time 15.4 SECONDS (9.0-12.0) H INR International Normalized Ratio 1.6 INR Coagulation Comments Problem\Assessment\Plan Assessment and plan -DTs Continue with EtOH withdrawal protocol Continue to replace multivitamins folic acid and thiamine -sinus tachycardia Treated with metoprolol IV x1 -pain Besides the morphine and the [place] I am going to add gabapentin 300 mg p.o. b.i.d. -SLE Check ESR to rule out her lupus flare-up -continue with DVT prophylaxis Patient is a full code Possibly DC home in a.m. Date of Service: Jan 31, 2025 Billing Provider: CARMELITA GARCIA MD Common Visit Codes: [id number] INP/OBS CARE(HIGH) CARMELITA GARCIA MD Jan 31, 2025 09:08
--- NOTE | 2025-01-31 10:12 | ELECTROCARDIOGRAPH REPORT ---
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 DERRICK Gallagher Measurements Intervals [place] Rate: 118 P: 0 [place]: 0 QRS: 1 QRSD: 73 T: 33 QT: 346 QTc: 485 Interpretive Statements Sinus tach Borderline prolonged QT interval Electronically Signed On 02-01-2025 9:10:[address] DERRICK Gallagher Please click the below link to view image of tracing.
[2025-01-31] MEDS: metoprolol tartrate 1mg/ml inj IV ONE (12:37)
[2025-01-31] MEDS ORDERED: dextrose 50%-water 50ml dispensing syringe IV PRN ×2 (13:35)
[2025-01-31] MEDS ORDERED: glucagon, human recombinant 1mg kit SUBCUT PRN (13:35)
[2025-01-31] MEDS ORDERED: DEXTROSE 15 GM of carb/4 tabs (each vial/BOTTLE has 4 tablets) PO PRN ×2 (13:35)
[2025-01-31] MEDS: HYDROcodone/acetaminophen 10/325mg tab PO PRN (14:06)
[2025-01-31] MEDS: INSULIN LISPRO 100 UNIT/ML INSULN.PEN MULTI-DOSE SQ SCH (17:00)
[2025-01-31] MEDS: diazepam inj 5 MG/ML inj. IV PRN (20:16)
[2025-01-31] MEDS: gabapentin 300mg capsule PO SCH (20:16)
[2025-02-01 02:00] VITALS: BP 103/66; PULSE 114; RESP 20; TEMP 98.4; O2SAT 99
[2025-02-01 07:00] VITALS: BP 117/66; PULSE 112; RESP 17; TEMP 97.6; O2SAT 96
[2025-02-01 07:32] LABS: BASOPHILS % (AUTO) 0.6 % (0-1); EOSINOPHILS % (AUTO) 0.9 % (0-6); HEMATOCRIT 34.1 % (35.0-45.0); HEMOGLOBIN 11.3 g/dl (12.0-16.0); LYMPHOCYTES # (AUTO) 1.2 X10'3 (1.1-4.8); LYMPHOCYTES % (AUTO) 43.9 % (21-51); MEAN CORPUSCULAR HEMOGLOBIN 35.7 PG (27.0-31.0); MEAN CORPUSCULAR HGB CONC 33.1 g/dL (33.0-36.5); MEAN PLATELET VOLUME 9.5 FL (7.4-10.4); MONOCYTES # (AUTO) 0.4 X10'3 (0-0.9); NEUTROPHILS # (AUTO) 1.1 X10'3 (1.8-7.7); NEUTROPHILS % (AUTO) 40.6 % (42-75); PLATELET COUNT 92 X10'3 (140-440); RED BLOOD COUNT 3.16 X10'6 (4.20-5.60); RED CELL DISTRIBUTION WIDTH 14.3 % (11.5-14.5); WHITE BLOOD COUNT 2.8 X10'3 (4.5-11.0)
[2025-02-01 07:43] LABS: INR 1.4 INR; PROTHROMBIN TIME 13.5 SECONDS (9.0-12.0)
[2025-02-01 08:00] VITALS: RESP 17; O2SAT 96
[2025-02-01 08:01] LABS: ALANINE AMINOTRANSFERASE 111 U/L (12-78); ALBUMIN/GLOBULIN RATIO 0.7 (1.1-1.5); ALKALINE PHOSPHATASE 256 IU/L (46-116); AMYLASE 18 U/L (25-115); ANION GAP 5 (8-16); ASPARTATE AMINO TRANSFERASE 203 U/L (10-37); BILIRUBIN,TOTAL 0.9 MG/DL (0.1-1.0); BLOOD UREA NITROGEN 0 MG/DL (7-18); CALCIUM 7.9 MG/DL (8.5-10.1); CHLORIDE 103 MMOL/L (99-107); CREATININE 0.64 MG/DL (0.40-0.90); GLUCOSE 95 MG/DL (70-104); LIPASE 33 U/L (16-77); MAGNESIUM 2.1 MG/DL (1.5-2.4); PHOSPHORUS 3.9 MG/DL (2.3-4.5); POTASSIUM 4.3 MMOL/L (3.5-5.1); SODIUM 136 MMOL/L (135-145); TOTAL CARBON DIOXIDE 28.2 MMOL/L (24-32); TOTAL PROTEIN 4.8 G/DL (6.4-8.2); eCRCL 101 ML/MIN; eGFR > 90 ML/MIN
[2025-02-01 09:11] LABS: PLATELET ESTIMATE DECREASED; TOTAL CELLS COUNTED 100
[2025-02-01 11:00] VITALS: BP 106/73; PULSE 119; RESP 16; TEMP 98.5; O2SAT 96
[2025-02-01 15:00] VITALS: BP 117/83; PULSE 104; RESP 16; TEMP 97.4; O2SAT 97
[2025-02-01] MEDS ORDERED: PANT40TA54 PO (15:05)
[2025-02-01] MEDS ORDERED: THIA50TA10 PO (15:05)
[2025-02-01] MEDS ORDERED: FOLI0.4T6 PO (15:05)
[2025-02-01] MEDS ORDERED: ACET-1008 PO (15:05)
[2025-02-01 16:37] VITALS: RESP 16
[2025-02-03] MEDS ORDERED: thiamine 100mg tablet PO SCH (08:00)
[2025-02-03] MEDS ORDERED: folic acid 1mg tablet PO SCH (08:00)
== END 2025-02-01 17:15 | disposition home or self-care (01) | DRG 425 ==
LOC: ER 11:23 → ED HOLD 16:24 → PCU 3S 19:15
PROVIDERS: ADMIT Internal Medicine; ATTEND Internal Medicine
DX: E87.6 Hypokalemia (principal); F10.231 Alcohol dependence with withdrawal delirium; K74.60 Unspecified cirrhosis of liver; D64.9 Anemia, unspecified; M32.9 Systemic lupus erythematosus, unspecified; Z56.0 Unemployment, unspecified; Z83.3 Family history of diabetes mellitus; Z87.891 Personal history of nicotine dependence; Z88.0 Allergy status to penicillin; Z95.1 Presence of aortocoronary bypass graft
CPT/HCPCS: 36415; 71045; 80048; 80053; 80076; 80320; 82150; 82948; 83036; 83690; 83735; 83880; 84100; 84145; 84484; 85007; 85025; 85610; 85651; 87081; 93005; 96365; 96375; 97116; 97162; 99285; A6258; G0378; J1650; J1815; J1885; J2060; J2270; J2405; J2470; J3360; J3411; J3475; J3480; J3490; J7030; J7042

== ENCOUNTER 2025-05-03 13:21 | Inpatient (IN) | payer MEDICAID ==
[~2025-05-03] VITALS: Ht 167.6 cm; Wt 54.5 kg
[~2025-05-03 13:21] MED LIST changes: +ACET-1008 PO; -CYAN500T71 PO; -FOLI1TAB27 PO; -FURO40TA4 PO; -GABA-530 PO; -LACT-373 PO; -LORA-269 PO; -NO HOME MEDS; +PANT40TA54 PO; -SPIR50TA5 PO; +THIA50TA10 PO; -thiamine tablet PO
[2025-05-03] MEDS: metoclopramide 5 mg/ml inj IV ONE (14:44)
[2025-05-03] MEDS: normal saline 1000ml 1,000 ML IV ONE (14:44)
[2025-05-03 15:05] LABS: MEAN PLATELET VOLUME 8.9 FL (7.4-10.4); RED CELL DISTRIBUTION WIDTH 14.9 % (11.5-14.5)
--- NOTE | 2025-05-03 15:05 | RADIOLOGY REPORT ---
X-ray left ankle Technique: AP lateral and oblique views REASON FOR EXAM: pain an swelling to lateral Left foot INDICATION: pain an swelling to lateral Left foot FINDINGS: No fractures or dislocations. No erosions or periosteal reaction. Articular surfaces are smooth. IMPRESSION: 1. No acute bony pathology
--- NOTE | 2025-05-03 15:07 | RADIOLOGY REPORT ---
X-ray left foot Technique: AP lateral and oblique views REASON FOR EXAM: pain an swelling to lateral Left foot INDICATION: pain an swelling to lateral Left foot FINDINGS: No fractures or dislocations. No erosions or periosteal reaction. Articular surfaces are smooth. IMPRESSION: 1. No acute bony pathology
[2025-05-03 15:22] LABS: CREATININE 0.56 MG/DL (0.40-0.90); ETHANOL 107 MG/DL (<10); TOTAL CARBON DIOXIDE 28.5 MMOL/L (24-32); eCRCL 115 ML/MIN; eGFR > 90 ML/MIN
--- NOTE | 2025-05-03 15:22 | Physician Documentation ---
History of Present Illness ~ Chief Complaint: ETOH Stated Complaint: VOMITING Time Seen by MD: 14:25 Primary Medical Doctor: Criselda GOMEZ 39-year-old female known past medical history of alcoholism. Reports she feels that she is anxious and likely in detox. Reports she has been vomiting for the past week. She has been drinking a L and a half of whiskey a day and her last drink was last night. Reports that she has been admitted before for alcohol intoxication with withdrawal. Additionally normally takes Keppra daily however has been without her Keppra for one month. She takes the Keppra due to seizures related to alcohol. Apparently yesterday she had a mechanical fall with a head strike for with reported loss of consciousness. She has while alert and oriented at this time with mild tremors. Reports that her nutrition has been poor also. Said her complain of mild abdominal discomfort without hemoptysis or melena stool. She is seeking detox and help. Tetanus within 5 years?: No Medication Reconciliation Allergies: Coded Allergies: tramadol (Verified Allergy, Intermediate, SEIZURES, 05/03/25) amoxicillin (Verified Allergy, Unknown, 05/03/25) Scheduled Pantoprazole Sodium (Pantoprazole Sodium), 40 MG PO BKF Thiamine HCl (Vitamin B-1), 2 TAB PO DAILY Scheduled PRN Acetaminophen (Tylenol), 1 TAB PO Q8H PRN for pain or fever, (Reported) Past Medical History Past Medical History: Seizures Past Surgical History: noncontributory Patient History: FH: CABG (coronary artery bypass surgery) (Mother,) FH: cirrhosis (Father, in 72) FH: diabetes mellitus (Sister) FH: lupus sister Alcohol Use: Heavy Drug Use: none Lives with: Alone Lives In: Home Occupation: unemployed Review of Systems Constitutional: Reports: see HPI, chills, malaise, weakness Eyes: Denies: photophobia ENT: Reports: no symptoms reported Respiratory: Reports: no symptoms reported Cardiovascular: Reports: lightheadedness; Denies: chest pain Gastrointestinal: Reports: abdominal pain, nausea, vomiting; Denies: diarrhea, melena, hematemesis Genitourinary: Reports: no symptoms reported Neurological: Reports: headache, dizziness; Denies: tingling Musculoskeletal: Reports: pain, joint pain Integumentary: Reports: no symptoms reported Allergic/Immunologic: Reports: no symptoms reported Hematologic/Lymphatic: Denies: blood clots, easy bleeding, easy bruising Endocrine: Reports: see HPI Psychiatric: Reports: anxiety, sleeplessness, hopeless Physical Exam Vital Signs: Temperature: 97.6, Heart Rate: 136, Respiratory Rate: 19, BP: 151 /90, Pulse Oximetry: 100, Weight: 54.550 Oxygen Flow Rate: 0 General Appearance: ill-appearing, moderate distress Head: flap; No: active bleeding, Smith's Sign, contusions, ecchymosis Face: normal Eye Lid: normal inspection Pupils/EOM/Fundus: PERRLA Ears: normal inspection Nose: normal inspection Mouth: normal inspection Neck: non-tender, full range of motion; No: meningeal signs Respiratory: lungs clear, normal breath sounds Chest: normal inspection, non-tender Cardiovascular: normal peripheral pulses, tachycardia Gastrointestinal: No: liver enlargement, spleen enlargement, pulsatile mass Back: vertebral tenderness Pelvis: normal Progress Results/Orders Results/Orders Orders - SIMA FORBES PAC Pantoprazole 40mg Iv (Protonix 40mg Iv) (05/03/25 14:30) Ct Head (05/03/25 15:28) Ct Cervical Spine (05/03/25 15:28) Foot, Complete (3vw Min) (05/03/25 ) Ankle, Complete(3vw Min) (05/03/25 ) * Collect Urine For (05/03/25 14:35) Potassium Cl 20meq/15ml Oral (Potassium (05/03/25 15:35) Page Hospitalist (05/03/25 ) Completed Orders - SIMA FORBES PAC Lorazepam Inj (Ativan Inj) (05/03/25 14:30) Levetiracetam-Nacl 500mg/100ml (Levetira (05/03/25 20:00) Metoclopramide Inj (Reglan Inj) (05/03/25 14:30) Diphenhydramine Inj (Benadryl Inj.) (05/03/25 14:30) Ct Head (05/03/25 15:28) Ct Cervical Spine (05/03/25 15:28) Foot, Complete (3vw Min) (05/03/25 ) Ankle, Complete(3vw Min) (05/03/25 ) Cbc/Diff (05/03/25 14:35) CMP (05/03/25 14:35) Acetone, Serum (05/03/25 14:35) Drug Screen, Urine (05/03/25 14:35) Ammonia (05/03/25 14:35) Ethanol (05/03/25 14:35) Normal Saline 1000ml (0.9% Sodium Chlori (05/03/25 14:40) Thiamine Tablet (Thiamine Tablet) (05/03/25 15:15) Folic Acid Inj. (Folic Acid Inj.) (05/03/25 15:15) MG (05/03/25 15:14) Lipase (05/03/25 15:21) LA (05/03/25 15:21) Stat Ekg (05/03/25 ) Potassium Cl 10meq/100ml Bag (Potassium (05/03/25 15:35) Lorazepam Inj (Ativan Inj) (05/03/25 15:45) Ua W/Microscopic, Cult If Ind (05/03/25 17:45) CK (05/03/25 15:37) Medications Received in ER Medications (Trade) Dose Ordered Sig/Rosales Route PRN Reason Start Time Stop Time Status Last Admin Dose Admin Sodium Chloride 1,000 ml @ 150 mls/hr Q6H40M IV 05/03/25 16:15 05/03/25 21:14 DC 05/03/25 16:30 150 MLS/HR (K-DUR tablet) 40 meq Q4H PRN PO Potassium 3.0 or less 05/03/25 16:15 05/06/25 16:14 05/03/25 23:10 40 MEQ Magnesium Sulfate 100 ml @ 25 mls/hr DAILY PRN IV Mag 1.4 or less & NPO 05/03/25 16:15 05/06/25 16:14 05/03/25 21:21 25 MLS/HR Vital Signs 05/03/25 05/03/25 05/03/25 05/03/25 13:28 14:43 14:45 14:48 Temp 97.6 Pulse 138 136 Resp 18 19 19 B/P (MAP) 116/90 151/90 (110) Pulse Ox 98 100 O2 Flow Rate 0 05/03/25 16:08 Resp 16 Laboratory Tests Test 05/03/25 14:57 05/03/25 15:37 White Blood Count 6.2 Red Blood Count 4.02 L Hemoglobin 14.6 Hematocrit 42.4 Mean Corpuscular Volume 105.6 H Mean Corpuscular Hemoglobin 36.2 H Mean Corpuscular Hemoglobin Concent 34.3 Red Cell Distribution Width 14.9 H Platelet Count 168 Mean Platelet Volume 8.9 Neutrophils (%) (Auto) 65.6 Lymphocytes (%) (Auto) 21.9 Monocytes (%) (Auto) 12.0 Eosinophils (%) (Auto) 0 Basophils (%) (Auto) 0.5 Neutrophils # (Auto) 4.1 Lymphocytes # (Auto) 1.4 Monocytes # (Auto) 0.7 Eosinophils # (Auto) 0.0 Basophils # (Auto) 0.0 CBC Comment Sodium Level 132 L Potassium Level 2.5 *L Chloride Level 88 L Carbon Dioxide Level 28.5 Anion Gap 16 Blood Urea Nitrogen 2 L Creatinine 0.56 Estimated GFR/1.73 m2 > 90 BUN/Creatinine Ratio 3.6 L Glucose Level 191 H Calcium Level 7.6 L Total Bilirubin 2.0 H Aspartate Amino Transf (AST/SGOT) 163 H Alanine Aminotransferase (ALT/SGPT) 130 H Alkaline Phosphatase 190 H Ammonia 28 Total Protein 5.0 L Albumin 2.2 L Globulin 2.8 Albumin/Globulin Ratio 0.8 L Chemistry Comments Ethyl Alcohol Level 107 H Acetone Level Negative Lactic Acid Level 12.7 *H Magnesium Level 0.9 *L Total Creatine Kinase 143 Lipase 70 Medical Decision Making Additional Comment 39-year-old female brought to the emergency department for evaluation of alcohol withdrawal. Decision time to admit as upon presentation patient noted to be tachycardic with mild tremors. Patient has received IV fluids, Ativan and a Keppra load. Seizure precautions at the bedside. Additionally patient has nausea and vomiting he will be mitigated with Reglan and Benadryl. Screening labs for CMP, CBC, magnesium serum acetone and urinalysis and drug screening pending. Patient is x-ray imaging to include CT of the head and neck. Physical exam shows no step-offs to the neck yet with reported potential loss of consciousness we will go ahead and obtain the scan. Patient is grossly neurologically intact. She is pending re-evaluation after administration of medications. Additionally she will receive thiamine and folate. Prominent reassessment patient continues to be tachycardic at without nausea or vomiting and/or tremors. Will repeat Ativan dose at 1 mg IV d/t continued tachycardia. K 2.5 & will begin a K rider and 60 KCl oral potassium. She is pending an EKG and Admission to the hospital after receiving CT imaging results. She will receive additional hydration to help mitigate the tachycardia. No acidosis nose is reassuring for no TAMMI. She will receive repeated bedside nursing and physician re-evaluations. Additionally your x-ray imaging of her lower extremities unremarkable for fracture. Lactate needed to be slightly elevated and magnesium low consistent with current physiology and pathology. Discussed case with the hospitalist who will admit. Patient continues to rest comfortably in the emergency department continues to metabolize. No seizure activity emergency department. Departure Disposition: ADMITTED INPATIENT Impression: Primary Impression: Alcohol withdrawal Qualified Codes: F10.939 - Alcohol use, unspecified with withdrawal, unspecified Additional Impressions: Acute hypokalemia Alcohol abuse Transaminitis Protein malnutrition Referrals: NO PRIMARY CARE PROVIDER (PCP) Signature Scribe Signature: . Attestation: . SIMA FORBES PAC May 03, 2025 15:22
[2025-05-03 15:30] LABS: ACETONE NEGATIVE (NEGATIVE)
[2025-05-03] MEDS: Levetiracetam-NACL 500mg/100ml 100 ML IV SCH (15:35)
--- NOTE | 2025-05-03 15:40 | RADIOLOGY REPORT ---
CT brain without contrast CLINICAL INDICATION: CH with loc FINDINGS: The study was performed in a multidetector scanner. This study performed taking axial images from the skull base up to the vertex. Both brain and bone windows are photographed. Dose lowering techniques have been used including automated exposure control and adjustment of mA and/or KV according to patient size. Normal and symmetrical shape and density of brain parenchyma above and below the tentorium is seen. There is no mass, midline shift or hydrocephalus. No intra/extra-axial collections demonstrated. There is no intracranial hemorrhage. The calvarium is intact. IMPRESSION: 1. Normal brain and skull. Computed Tomographic Radiation Dosimetry Report: Total CTDI vol = 67 mGy Total DLP = 1163 mGy-cm All CT scans at this medical facility are performed using dose modulation techniques as appropriate to a performed exam including the following: Automated exposure control was utilized; adjustment of the MA and/or KvP according to patient size; and use of iterative reconstruction technique.
--- NOTE | 2025-05-03 15:45 | ELECTROCARDIOGRAPH REPORT ---
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
[2025-05-03] MEDS: POTASSIUM CHLORIDE 20 MEQ/15 ML oral solution PO SCH (16:07)
[2025-05-03] MEDS ORDERED: bisacodyl 10mg suppository rectal RC PRN (16:15)
[2025-05-03] MEDS ORDERED: magnesium sulf-water 2g/50mL 50 ML IV PRN (16:15)
[2025-05-03] MEDS ORDERED: magnesium hydroxide 30ml (MOM) UD suspension PO PRN (16:15)
[2025-05-03] MEDS ORDERED: ondansetron/PF 4mg/2ml inj IV PRN (16:15)
[2025-05-03] MEDS ORDERED: magnesium Cl slow-release 64mg tablet PO PRN (16:15)
[2025-05-03] MEDS ORDERED: potassium Cl 20 mEq SR tablet PO PRN (16:15)
--- NOTE | 2025-05-03 16:16 | RADIOLOGY REPORT ---
COMPUTERIZED TOMOGRAPHY OF THE CERVICAL SPINE, NONCONTRAST REASON FOR EXAM: Trauma. Loss of consciousness. Neck pain. COMPARISON: CT CT HEAD on DOS: 05/03/25, CT CT HEAD on DOS: 12/29/24, CT CT HEAD on DOS: 12/07/24, CT CT HEAD on DOS: 12/04/24, CTA NECK on DOS: 02/05/22 TECHNIQUE: CT of the entire cervical spine was performed in routine fashion with sagittal and coronal reconstructions. Soft tissues and bone windows were filmed. Radiation optimization: All CT scans at this facility use at least one of these dose optimization techniques: Automated exposure control mA and/or kV adjustment per patient size (includes targeted exams where dose is matched to clinical indication) or iterative reconstruction. RADIATION DOSE: CTDI: 23 mGy DLP: 547 mGy-cm FINDINGS: The vertebral bodies are normal in height and alignment with no evidence of fracture. There is straightening of the normal cervical lordosis which may be secondary to patient positioning or muscular spasm. Intervertebral disc height is maintained. There is no listhesis. The prevertebral soft tissues are within normal limits. There is a 5 mm pulmonary nodule at the apex of the left upper lobe. There is no pathologic lymphadenopathy in the visualized neck. IMPRESSION: No evidence of cervical spine fracture or subluxation. There is straightening of the normal cervical lordosis which may be secondary to patient positioning or muscular spasm. This is a 5 mm pulmonary nodule at the apex of the left upper lobe. Fleischner Society Guidelines for Incidental Pulmonary Nodules: SOLID NODULES Single low-risk: < 6 mm No follow up. 6-[address] at 6-12 months, then consider CT at 18-24 months. > [address] at 3 months, PET/CT or bx. Single high risk: < [address] at 12 months. 6-[address] at 6-12 months, then consider CT at 18-24 months. > [address] at 3 months, PET/CT or bx. Multiple low risk: < 6 mm No follow up. 6-[address] at 3-6 months, then consider CT at 18-24 months. > [address] at 3-6 months, then consider CT at 18-24 months. Multiple high risk: < [address] at 12 months. 6-[address] at 3-6 months, then CT at 18-24 months. > [address] at 3-6 months, then CT at 18-24 months. SUBSOLID NODULES Ground glass: < 6 mm No follow up. > [address] at 6-12 months, then CT every 2 years for 5 years. Part solid: < 6 mm No follow up. > [address] at 3-6 months. If stable with solid component <6mm, annual CT for 5 years. Multiple: < [address] at 3-6 months. If stable, consider CT at 2 and 4 years. > [address] at 3-6 months. Subsequent based on most suspicious nodule. Notes: Recommendations do not apply to cancer screening, patient with immunosuppression or known primary cancer. Reference: Radiology 2017; Stephaniehosuzy et al; 000:1-16
[2025-05-03] MEDS: potassium CL 10mEq/100ml bag 100 ML IV ONE (16:19)
[2025-05-03] MEDS: normal saline 1000ml 1,000 ML IV SCH (16:30)
[2025-05-03] MEDS ORDERED: iohexol 300mg/ml 100ml inj. ONE (17:12)
[2025-05-03] MEDS: folic acid 1mg/0.2ml inj IV ONE (17:38)
[2025-05-03] MEDS: morphine 4 MG/ML inj SYRINge IV PRN ×2 (17:39→23:24)
[2025-05-03 18:03] LABS: HCG SERUM QL NEGATIVE
[2025-05-03 18:30] LABS: LEUKOCYTE ESTERASE ,URINE NEGATIVE (Neg); NITRITES, URINE NEGATIVE (Neg); OCCULT BLOOD,URINE NEGATIVE (Neg)
[2025-05-03 18:34] LABS: UA COLLECTION TYPE NON-SPECIFIED
[2025-05-03 18:40] LABS: SQUAMOUS EPITHELIAL CELL,UR FEW /LPF (FEW)
[2025-05-03 18:45] LABS: URINE AMPHETAMINE SCREEN NEGATIVE (Neg); URINE BARBITUATE SCREEN NEGATIVE (Neg); URINE BENZODIAZEPINES SCREEN NEGATIVE (Neg); URINE CANNABINOID SCREEN NEGATIVE (Neg); URINE COCAINE SCREEN NEGATIVE (Neg); URINE METHADONE SCREEN NEGATIVE (Neg); URINE OPIATE SCREEN NEGATIVE (Neg); URINE PHENCYCLIDINE SCREEN NEGATIVE (Neg)
--- NOTE | 2025-05-03 19:15 | RADIOLOGY REPORT ---
EXAM: CT CT ABDOMEN PELVIS W/ IV CONTRAST HISTORY: ALCOHOL ABUSE SUSPECTED PANCREATITIS TECHNIQUE: Volumetric multidetector CT images of the abdomen and pelvis were obtained before and after the administration of intravenous contrast. All CT scans at this facility use dose modulation, iterative reconstruction, and/or weight based dosing when appropriate to reduce radiation dose to as low as reasonably achievable. COMPARISON: US ULTRASOUND OF ABDOMEN on DOS: 12/08/24 FINDINGS: [LOWER CHEST]: The partially visualized lung bases are clear without a pleural effusion. [LIVER]: Normal hepatic size without suspicious focal lesion. [GALLBLADDER AND BILIARY TREE]: Significant gallbladder distention compatible with gallbladder hydrops [SPLEEN]: Unremarkable. [PANCREAS]: Edema along the margin of the pancreas correlate with the physical exam for interstitial edematous pancreatitis [ADRENAL GLANDS]: Unremarkable [KIDNEYS]: No hydronephrosis. No nephroureterolithiasis. No suspicious focal lesion. [BLADDER]: Unremarkable for the degree distention. [REPRODUCTIVE ORGANS]: Unremarkable. [BOWEL/MESENTERY]: Stomach is normal. Mild stool burden. Normal appendix. Inconspicuous possible submucosal edema of the transverse colon and ascending colon and descending colon. Correlate with clinical exam for underlying colitis. Imaging finding is new since prior examination. [ASCITES]: Mild ascites [LYMPHADENOPATHY]: No pathologically enlarged lymph nodes by CT size criteria [VASCULATURE]: No aneurysmal dilatation. [ABDOMINAL WALL]: Unremarkable. [MUSCULOSKELETAL]: No acute fracture or aggressive focal osseous lesion. Multifocal degenerative change of the visualized spine. likely chronic superior endplate height loss of L1. No retropulsion. IMPRESSION: 1. Edema along the margin of the pancreas correlate with the physical exam for interstitial edematous pancreatitis. 2. Gallbladder hydrops. 3. Inconspicuous possible submucosal edema of the transverse colon and ascending colon and descending colon. 4. Correlate with clinical exam for underlying colitis. 5. Imaging finding is new since prior examination.
--- NOTE | 2025-05-03 19:50 | HISTORY AND PHYSICAL ---
History & Physical Providers to CC ~ History of Present Illness Reason for Admit\Complaint: Vomiting and feeling sick History of Present Illness 39-year-old female known past medical history of alcoholism. Reports she feels that she is anxious and likely in detox. Reports she has been vomiting for the past week. She has been drinking a L and a half of whiskey a day and her last drink was last night. Reports that she has been admitted before for alcohol intoxication with withdrawal. Additionally normally takes Keppra daily however has been without her Keppra for one month. She takes the Keppra due to seizures related to alcohol. Apparently yesterday she had a mechanical fall with a head strike for with reported loss of consciousness. She has while alert and oriented at this time with mild tremors. Reports that her nutrition has been poor also. Said her complain of mild abdominal discomfort without hemoptysis or melena stool. She is seeking detox and help. Allergies: Coded Allergies: tramadol (Verified Allergy, Intermediate, SEIZURES, 05/03/25) amoxicillin (Verified Allergy, Unknown, 05/03/25) Home Medications Home Medications Active Pantoprazole Sodium 40 Mg Tablet.dr 40 Mg PO BKF 30 Days Vitamin B-1 (Thiamine HCl) 50 Mg Tablet 2 Tab PO DAILY 30 Days Reported Tylenol (Acetaminophen) 325 Mg Tablet 1 Tab PO Q8H PRN 30 Days Past Medical History Past Medical History Alcohol abuse, history of seizure Family History Family History: FH: CABG (coronary artery bypass surgery) (Mother,) FH: cirrhosis (Father, in 72) FH: diabetes mellitus (Sister) FH: lupus sister Past Social History Social History Comment Alcohol Use: Heavy Drug Use: none Lives with: Alone Lives In: Home ROS ROS Review of system as mentioned above in HPI rest of the review of system unremarkable Exam Vitals: Vital Signs Date Time Temp Pulse Resp B/P (MAP) Pulse Ox O2 Delivery O2 Flow Rate FiO2 05/03/25 19:41 22 05/03/25 19:40 137 05/03/25 18:32 133/93 (106) 98 0 05/03/25 13:28 97.6 General: General-patient not in any acute distress, alert awake , age-appropriate HEENT-atraumatic normocephalic, neck supple without elevated JVD, no thyromegaly or carotid bruit. No lymphadenopathy bilaterally. Eyes-no icterus or pallor seen in eyes Chest-clear to auscultation bilaterally, breathing nonlabored no tachypnea, no wheezing, no crepitation, no crackles. Heart-S1-S2 normal, regular heart rate no murmur Abdomen bowel sounds positive on auscultation, soft nondistended nontender no guarding, no rigidity Skin no active skin rash Neurology-grossly intact, nonfocal alert awake Extremity- no pedal edema able to move all 4 extremities Psychiatry - patient is not confused or agitated cooperated during physical examination Diagnostic Data Last Recorded Lab Results: 05/03/25 1457 05/03/25 145 Advance Care Planning Advanced Care plannin - 30 Minutes Additional Plan Patient is 39-year-old female admitted for alcohol abuse. During hospitalization patient was treated for -DTs Continued with EtOH withdrawal protocol Continued to replace multivitamins folic acid and thiamine Hypokalemia we will replace the potassium as per protocol -sinus tachycardia Treated with atenolol -chronic pain on morphine and the [place] -continued with DVT prophylaxis We will continue to monitor patient's labs and vitals closely . Needs physical therapy evaluation before discharge . Code status discussed with the patient patient wishes full code Time spent in discussing code status 16 minutes. We will do home medication reconciliation once updated in electronic by nursing staff or pharmacist. Further management depending on response to treatment . I will continue to follow patient in a.m. Patient's current condition is guarded we will continue to follow patient in AM . Date of Service: May 03, 2025 Billing Provider: MITZI RAE MD Common Visit Codes: [id number] INP/OBS CARE (HIGH) Secondary Visit Codes: [id number] CARE PLAN 30 MINUTES MITZI RAE MD May 03, 2025 19:50
[2025-05-03] MEDS: heparin, porcine 5000 units/ml vial SQ SCH (20:11)
[2025-05-03] MEDS: ringers solution, lacted 1,000 ML IV ONE (21:07)
[2025-05-03] MEDS: magnesium sulf-water 4G/100mL 100 ML IV PRN (21:21)
[2025-05-03] MEDS: thiamine 100mg/ml 2ml inj. IV SCH (21:36)
[2025-05-03] MEDS: ringers solution, lacted 1,000 ML IV SCH (21:39)
[2025-05-03] MEDS: ciprofloxacin lact 400MG/200ML 200 ML IV SCH (21:41)
[2025-05-03 21:44] LABS: CREATININE 0.77 MG/DL (0.40-0.90); TOTAL CARBON DIOXIDE 23.6 MMOL/L (24-32); eCRCL 84 ML/MIN; eGFR 83 ML/MIN
[2025-05-03] MEDS: potassium Cl 20 mEq SR tablet PO PRN (23:10)
[2025-05-03] MEDS: potassium Cl 40MEQ/1/2NS 520ml 520 ML IV ONE (23:35)
[2025-05-04] VITALS (10 sets, daily range): BP systolic 94–112; BP diastolic 52–81; PULSE 69–114; RESP 16–27; TEMP 97–98.9; O2SAT 92–100
[2025-05-04] MEDS: potassium Cl 40MEQ/1/2NS 520ml 520 ML IV PRN (00:28)
[2025-05-04] MEDS ORDERED: HYDR-3964 PO (00:39)
[2025-05-04] MEDS: Potassium Cl inj 40 MEQ in normal saline 500ml IV soln 500 ML IV ONE (01:52)
[2025-05-04] MEDS: metroNIDAZOLE-Flagyl 500mg/NS 100 ML IV SCH (02:14)
[2025-05-04] MEDS: metroNIDAZOLE-Flagyl 500mg/NS 100 ML IV ONE (02:19)
[2025-05-04] MEDS: HYDROcodone/acetaminophen 5mg/325mg tablet PO PRN ×2 (02:36→18:51)
--- NOTE | 2025-05-04 02:52 | ELECTROCARDIOGRAPH REPORT ---
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 DERRICK Gallagher Measurements Intervals [place] Rate: 94 P: 79 HI: 131 QRS: 15 QRSD: 78 T: 48 QT: 481 QTc: 602 Interpretive Statements Sinus rhythm Prolonged QT interval Electronically Signed On 05-04-2025 9:04:[address] DERRICK Gallagher Please click the below link to view image of tracing.
[2025-05-04 03:01] LABS: MEAN PLATELET VOLUME 8.8 FL (7.4-10.4); RED CELL DISTRIBUTION WIDTH 14.8 % (11.5-14.5)
[2025-05-04 03:16] LABS: CREATININE 0.72 MG/DL (0.40-0.90); PHOSPHORUS 3.0 MG/DL (2.3-4.5); TOTAL CARBON DIOXIDE 29.3 MMOL/L (24-32); eCRCL 89 ML/MIN; eGFR 90 ML/MIN
[2025-05-04] MEDS: Levetiracetam-NACL 500mg/100ml 100 ML IV SCH (05:29)
[2025-05-04] MEDS: diazepam inj 5 MG/ML inj. IV PRN ×2 (05:29→21:04)
[2025-05-04] MEDS: folic acid 1mg/0.2ml inj IV SCH (07:51)
[2025-05-04] MEDS: multivitamins, therapeutics tablet PO SCH (07:52)
[2025-05-04 13:50] LABS: ABG BASE EXCESS 1.7 mmol/L (-2.0-3.0); ABG HCO3 25.3 mmol/L (21.0-28.0); ABG OXYGEN SATURATION 96.6 % (94.0-98.0); ABG PCO2 (T) 35.9 mmHg (32.0-45.0); ABG PH (T) 7.466 (7.350-7.450); ABG PO2 (T) 91.6 mmHg (83.0-108.0); ALLEN'S TEST POSITIVE; FCOHb 0.2 % (0.5-1.5); FHHb 3.4 % (0.0-5.0); FIO2 21.0 mmHg/%; FMetHb 0.3 % (0.0-1.5); FO2Hb 96.1 % (94.0-98.0); MODE ROOM AIR; PATIENT TEMPERATURE 36.9; TOTAL HEMOGLOBIN 11.3 G/dl (12.0-16.0)
[2025-05-04] MEDS ORDERED: POTASSIUM CHLORIDE 20 MEQ/15 ML oral solution PO ONE (15:35)
--- NOTE | 2025-05-04 15:40 | RADIOLOGY REPORT ---
EXAM: CT CT LOWER EXTREMITY INDICATION: left ankle pain , fall TECHNIQUE: Axial images of left lower extremity have been obtained along with coronal and sagittal reformatted images. All CT scans at this facility use dose modulation, iterative reconstruction, and/or weight based dosing when appropriate to reduce radiation dose to as low as reasonably achievable. COMPARISON: DI ANKLE, COMPLETE(3VW MIN) on DOS: 05/03/25 FINDINGS: BONES: No CT evidence of an acute fracture or aggressive osseous lesion. MUSCLES: No abnormal attenuation. JOINT SPACES: No joint effusion. TENDONS/LIGAMENTS: Question edema the anterior talofibular ligament correlate for low lateral ankle ligamentous injury OTHER: Subcutaneous tissue edema of the aspect of the ankle IMPRESSION: 1. No CT evidence of an acute fracture. 2. Question edema the anterior talofibular ligament correlate for low lateral ankle ligamentous injury.
[2025-05-04] MEDS: normal saline 1000ml 1,000 ML IV SCH (16:53)
--- NOTE | 2025-05-04 19:44 | PROGRESS NOTE ---
Daily Progress Note Providers to CC ~ Antibiotic Timeout Antibiotic Ordered?: Yes Subjective Care plan discussed with the patient who is awake alert, all questions answered and all concerns addressed appropriately. Patient is feeling better she has been afebrile All labs, diagnostic workup and discharge plan discussed with patient and family members in detail before her discharge. All questions and queries answered to the best of my professional medical knowledge. Detailed counseling done regarding risk and consequences of alcohol abuse in visit today Objective Vital Signs Date Time Temp Pulse Resp B/P (MAP) Pulse Ox O2 Delivery O2 Flow Rate FiO2 05/04/25 18:51 18 05/04/25 15:00 98.5 104 105/65 (78) 100 Room Air 05/04/25 00:00 0.0 Result Diagram: 05/04/25 0250 05/04/25 0250 General-patient not in any acute distress, alert awake , age-appropriate HEENT-atraumatic normocephalic, neck supple without elevated JVD, no thyromegaly or carotid bruit. No lymphadenopathy bilaterally. Eyes-no icterus or pallor seen in eyes Chest-clear to auscultation bilaterally, breathing nonlabored no tachypnea, no wheezing, no crepitation, no crackles. Heart-S1-S2 normal, regular heart rate no murmur Abdomen bowel sounds positive on auscultation, soft nondistended nontender no guarding, no rigidity Skin no active skin rash Neurology-grossly intact, nonfocal alert awake Extremity- no pedal edema able to move all 4 extremities Psychiatry - patient is not confused or agitated cooperated during physical examination Problem\Assessment\Plan Patient is 39-year-old female admitted for alcohol abuse. During hospitalization patient was treated for -DTs Continued with EtOH withdrawal protocol Continued to replace multivitamins folic acid and thiamine Elevated lactic acid levels Hypokalemia we will replace the potassium as per protocol History of seizure disorder on Keppra CK normal -sinus tachycardia Treated with atenolol Acute colitis of transverse colon and ascending colon and descending colon- currently on Cipro and Flagyl -chronic pain on morphine and the [place] Code status discussed with the patient patient wishes full code -continued with DVT prophylaxis We will continue to monitor patient's labs and vitals closely . Needs physical therapy evaluation before discharge . home medication reconciliation updated in electronic records Further management depending on response to treatment . I will continue to follow patient in a.m. Patient's current condition is guarded we will continue to follow patient in AM . Date of Service: May 04, 2025 Billing Provider: MITZI RAE MD Common Visit Codes: [id number] INP/OBS CARE(HIGH) MITZI RAE MD May 04, 2025 19:44
[2025-05-05 02:00] VITALS: BP 115/82; PULSE 139; RESP 16; TEMP 97.3
[2025-05-05] MEDS: haloperidol lactate 5mg/ml inj IM PRN (04:26)
[2025-05-05 06:00] VITALS: BP 97/64; PULSE 133; RESP 17; TEMP 97.3; O2SAT 96
[2025-05-05 06:52] LABS: MEAN PLATELET VOLUME 9.9 FL (7.4-10.4); RED CELL DISTRIBUTION WIDTH 15.1 % (11.5-14.5)
[2025-05-05 06:58] LABS: CREATININE 0.58 MG/DL (0.40-0.90); PHOSPHORUS 2.5 MG/DL (2.3-4.5); TOTAL CARBON DIOXIDE 27.4 MMOL/L (24-32); eCRCL 111 ML/MIN; eGFR > 90 ML/MIN
[2025-05-05 08:00] VITALS: RESP 20; O2SAT 96
[2025-05-05 08:10] LABS: BANDS% (MANUAL) 2.0 % (0-10); LYMPHOCYTES % (MANUAL) 36.0 % (21-51); MONOCYTES % (MANUAL) 10.0 % (2-12); NEUTROPHILS % (MANUAL) 52.0 % (42-75); PLATELET ESTIMATE DECREASED
[2025-05-05 11:00] VITALS: BP 111/62; PULSE 102; RESP 18; TEMP 97.8; O2SAT 97
[2025-05-05] MEDS: pantoprazole 40mg Tablet.DR PO SCH ×2 (11:03→11:08)
--- NOTE | 2025-05-05 20:00 | DISCHARGE SUMMARY ---
Discharge Summary Providers to CC ~ Discharge Summary Admission Diagnosis: ALCOHOL ABUSE, HYPOKALEMIA Hospital Course DATE OF ADMISSION: May 03, 2025 DATE OF DISCHARGE:May 05, 2025 PATIENT LEFT AGAINST MEDICAL ADVICE. HER LACTIC ACID WAS 12.7 WHICH IMPROVED TO 5.8 BUT PATIENT DO NOT WANT TO WAIT AND DESPITE OF EXPLAINING RISK AND CONSEQUENCES SHE LEFT WITH HER FIANCE Discharge Diagnosis\Comment: Metabolic acidosis, Alcohol intoxication, likely chronic pancreatitis, History of seizure disorder Hypokalemia, chronic pain syndrome, Acute colitis of transverse colon and ascending colon and descending colon Operations\Procedures: None Consultants: None Complications: None Condition on DC: Unstable Discharge Summary: Patient is 39-year-old female admitted for alcohol abuse. During hospitalization patient was treated for -DTs Continued with EtOH withdrawal protocol Continued to replace multivitamins folic acid and thiamine Elevated lactic acid levels Hypokalemia we will replace the potassium as per protocol History of seizure disorder on Keppra CK normal -sinus tachycardia Treated with atenolol Acute colitis of transverse colon and ascending colon and descending colon- currently on Cipro and Flagyl -chronic pain on morphine and the Coin Code status discussed with the patient patient wishes full code -continued with DVT prophylaxis All questions answered and all concerns addressed appropriately. All labs, diagnostic workup discussed All questions and queries answered to the best of my professional medical knowledge. Detailed counseling done regarding risk and consequences of alcohol abuse in visit yesterday. PATIENT LEFT AGAINST MEDICAL ADVICE. HER LACTIC ACID WAS 12.7 WHICH IMPROVED TO 5.8 BUT PATIENT DO NOT WANT TO WAIT AND DESPITE OF EXPLAINING RISK AND CONSEQUENCES SHE LEFT WITH HER FIANCE General-patient not in any acute distress, awake mildly confused, age-a ppropriate HEENT-atraumatic normocephalic, neck supple without elevated JVD, No lymphadenopathy bilaterally. Eyes-no icterus or pallor seen in eyes Chest-clear to auscultation bilaterally, breathing nonlabored no tachypnea, no wheezing, no crepitation, no crackles. Heart-S1-S2 normal, regular heart rate no murmur Abdomen bowel sounds positive on auscultation, soft nondistended nontender no guarding, no rigidity Skin no active skin rash Neurology-grossly intact, nonfocal awake , mildly confused Extremity- no pedal edema able to move all 4 extremities Psychiatry - patient is mildly confused not agitated , barely cooperated during physical examination *Problems/Diagnosis: (1) Acute hypokalemia Status: Acute (2) Alcohol abuse Status: Acute Total Time Spent on D/C: > 30 Minutes Date of Service: May 05, 2025 Billing Provider: MITZI RAE MD Common Visit Codes: 48121-LZN/OBS DISCH DAY >30min MITZI RAE MD May 05, 2025 19:56
== END 2025-05-05 13:25 | disposition left against medical advice (07) | DRG 249 ==
LOC: ER 13:22 → ED HOLD 16:20 → PCU 3S 23:46
PROVIDERS: ADMIT Internal Medicine; ATTEND Internal Medicine
PROC: BW211ZZ Computerized Tomography (CT Scan) of Abdomen and Pelvis using Low Osmolar Contrast (ICD-10-PCS; principal; 2025-05-03)
DX: K52.9 Noninfective gastroenteritis and colitis, unspecified (principal); E46 Unspecified protein-calorie malnutrition; E87.6 Hypokalemia; G40.909 Epilepsy, unspecified, not intractable, without status epilepticus; R74.01 Elevation of levels of liver transaminase levels; R00.0 Tachycardia, unspecified; G89.29 Other chronic pain; F10.239 Alcohol dependence with withdrawal, unspecified; Z53.21 Procedure and treatment not carried out due to patient leaving prior to being seen by health care provider; Z88.0 Allergy status to penicillin; Z88.8 Allergy status to other drugs, medicaments and biological substances; Z88.1 Allergy status to other antibiotic agents; Z68.1 Body mass index [BMI] 19.9 or less, adult
CPT/HCPCS: 36415; 36600; 70450; 72125; 73610; 73630; 73700; 74178; 80048; 80053; 80305; 80320; 81001; 82009; 82140; 82550; 82803; 83605; 83690; 83735; 84100; 84145; 84484; 84703; 85007; 85018; 85025; 85651; 87077; 87081; 87088; 87186; 93005; 96365; 99285; A6258; A6449; G0378; J0744; J1200; J1630; J1644; J1953; J2060; J2270; J2470; J2765; J3360; J3411; J3475; J3480; J3490; J7030; J7040; J7120; Q9967

== ENCOUNTER 2025-06-01 18:00 | Inpatient (IN) | payer MEDICAID ==
[~2025-06-01] VITALS: Ht 167.6 cm; Wt 54.0 kg
[~2025-06-01 18:00] MED LIST changes: +HYDR-3964 PO
[2025-06-01] MEDS ORDERED: levetiracetam inj 750 MG in normal saline 100ml IV soln 100 ML IV ONE (18:15)
--- NOTE | 2025-06-01 18:16 | Physician Documentation ---
History of Present Illness ~ Chief Complaint: Seizure Stated Complaint: SEIZURE Time Seen by MD: 18:13 Primary Medical Doctor: Criselda Tapia [facility] Patient presents to the emergency room with nausea vomiting seizure activity. Patient was history of seizure and also history of alcoholism with withdrawal seizures. Last drink this morning. Patient reports that her nausea that has been going on for two days. Patient was given Zofran EN route with little affect. No melena reported. Medication Reconciliation Allergies: Coded Allergies: tramadol (Verified Allergy, Intermediate, SEIZURES, 05/03/25) amoxicillin (Verified Allergy, Unknown, 05/03/25) Scheduled Pantoprazole Sodium (Pantoprazole Sodium), 40 MG PO BKF Thiamine HCl (Vitamin B-1), 2 TAB PO DAILY Scheduled PRN Acetaminophen (Tylenol), 1 TAB PO Q8H PRN for pain or fever, (Reported) Hydrocodone Bit/Acetaminophen (Hydrocodon-Acetaminophen 5-325), 2 TAB PO Q6H PRN for pain, (Reported) Past Medical History Past Medical History: Seizures Past Surgical History: noncontributory Patient History: FH: CABG (coronary artery bypass surgery) (Mother,) FH: cirrhosis (Father, in 72) FH: diabetes mellitus (Sister) FH: lupus sister Alcohol Use: Heavy Drug Use: none Lives with: Alone Lives In: Home Occupation: unemployed Review of Systems ROS All review of systems negative except as per HPI Physical Exam Vital Signs: Temperature: 98.0, Heart Rate: 152, Respiratory Rate: 17, BP: 119/102, Pulse Oximetry: 99, Weight: 54.000 Oxygen Flow Rate: 0 Physical Exam General: Patient is awake, alert, oriented x4 in mild distress vomiting. Head: Normocephalic and atraumatic. Eyes: Conjunctival normal. EOMI. PERRL. ENT: Mucous membranes moist. Neck: Supple, trachea is midline. Chest: Clear to auscultation bilaterally without rales, rhonchi, or wheezes. There is no accessory muscle use or retractions. Cardiac: Tachycardic and regular without murmurs, gallops, or rubs. Abd: Soft, mild ascites. No peritonitis. It diffuse abdominal tenderness to palpation Progress Progress Note EKG interpreted by myself shows time of 18 17, rate 146, sinus tachycardia, normal axis, no ST changes Time 08/31/2037: I have paged home security professional Results/Orders Results/Orders Orders - BRAD RAY MD Accucheck (06/01/25 18:14) Chest,Single View (06/01/25 18:42) Monitor (06/01/25 18:14) Saline Lock (06/01/25 18:14) * Npo Until Passed Bedside Swa (06/01/25 18:14) Nursing Swallow Screen (06/01/25 18:14) Knee, Complete (06/01/25 20:37) Ct Abdomen Pelvis (06/01/25 20:26) Potassium Cl Inj (Potassium Cl Inj) (06/02/25 02:00) Page Hospitalist (06/02/25 00:59) Fill Out Med Reconciliation (06/02/25 00:59) Completed Orders - BRAD RAY MD Lorazepam Inj (Ativan Inj) (06/01/25 18:15) Electrocardiogram (06/01/25 18:14) Cbc/Diff (06/01/25 18:14) Urinalysis, Cult If Indicated (06/01/25 18:14) Chest,Single View (06/01/25 18:42) Ethanol (06/01/25 18:14) Ammonia (06/01/25 18:14) Drug Screen, Urine (06/01/25 18:14) CMP (06/01/25 18:14) Levetiracetam Inj (Keppra Inj) (06/01/25 18:15) Diazepam Inj (Valium Inj) (06/01/25 18:20) Levetiracetam-[id number]/100ml (Levetira (06/01/25 18:25) Hcg Serum Ql (06/01/25 18:20) Lipase (06/01/25 18:20) MG (06/01/25 18:20) PHOS (06/01/25 18:20) Normal Saline 1000ml (0.9% Sodium Chlori (06/01/25 18:20) Ondansetron Inj. (Zofran 4mg/2ml Vial) (06/01/25 18:35) Knee, Complete (06/01/25 20:37) Potassium Cl Sr Tablet (K-Dur Tablet) (06/01/25 20:02) Magnesium Sulf-Water 2g/50ml (Magnesium (06/01/25 20:05) Potassium Cl 40meq/1/2ns 520ml ([place] (06/02/25 00:00) Thiamine Inj. (Thiamine Inj.) (06/01/25 20:05) Ct Abdomen Pelvis (06/01/25 20:26) Man Diff (06/01/25 19:17) Potassium Cl Inj (Potassium Cl Inj) (06/01/25 22:00) BMP (06/01/25 22:46) Normal Saline 1000ml (0.9% Sodium Chlori (06/02/25 00:10) Diazepam Inj (Valium Inj) (06/02/25 00:10) Medications Received in ER Medications (Trade) Dose Ordered Sig/Rosales Route PRN Reason Start Time Stop Time Status Last Admin Dose Admin (K-DUR tablet) 40 meq ONCE STAT PO 06/01/25 20:02 06/01/25 20:04 DC 06/01/25 20:52 40 MEQ Magnesium Sulfate 50 ml @ 25 mls/hr ONCE ONCE IV 06/01/25 20:05 06/01/25 22:04 DC 06/01/25 20:52 25 MLS/HR (thiamine inj.) 100 mg ONCE ONCE IV 06/01/25 20:05 06/01/25 20:06 DC 06/01/25 20:53 100 MG Potassium Chloride 40 meq/ Sodium Chloride 520 ml @ 130 mls/hr ONCE ONCE IV 06/01/25 22:00 06/02/25 01:59 DC 06/01/25 22:10 130 MLS/HR Sodium Chloride 1,000 ml @ 1,000 mls/hr ONCE ONCE IV 06/02/25 00:10 06/02/25 01:09 DC 06/02/25 00:18 1,000 MLS/HR (Valium inj) 5 mg ONCE ONCE IV 06/02/25 00:10 06/02/25 00:13 DC 06/02/25 00:19 5 MG Vital Signs 06/01/25 06/01/25 06/01/25 06/01/25 18:04 18:20 18:38 18:48 Temp 98.0 Pulse 152 139 Resp 17 16 26 20 B/P (MAP) 119/102 142/89 (106) Pulse Ox 99 99 O2 Flow Rate 0 0 06/01/25 06/01/25 06/01/25 06/01/25 19:25 19:40 20:30 21:21 Pulse 137 155 136 Resp 17 16 24 19 B/P (MAP) 135/110 (118) 133/96 (108) 128/91 (103) Pulse Ox 97 97 97 O2 Flow Rate 0 0 0 06/01/25 06/01/25 06/02/25 22:24 23:27 00:19 Pulse 83 137 Resp 16 15 22 B/P (MAP) 165/86 (112) Pulse Ox 97 98 O2 Flow Rate 0 Laboratory Tests Test 06/01/25 18:41 06/01/25 19:17 06/01/25 21:45 06/02/25 00:10 Glucometer 244 H White Blood Count 5.5 Red Blood Count 3.90 L Hemoglobin 14.6 Hematocrit 43.2 Mean Corpuscular Volume 110.7 H Mean Corpuscular Hemoglobin 37.5 H Mean Corpuscular Hemoglobin Concent 33.9 Red Cell Distribution Width 18.7 H Platelet Count 319 Mean Platelet Volume 7.6 Neutrophils (%) (Auto) 65.7 Lymphocytes (%) (Auto) 17.0 L Monocytes (%) (Auto) 16.9 H Eosinophils (%) (Auto) 0 Basophils (%) (Auto) 0.4 Neutrophils # (Auto) 3.6 Lymphocytes # (Auto) 0.9 L Monocytes # (Auto) 0.9 Eosinophils # (Auto) 0.0 Basophils # (Auto) 0.0 CBC Comment Differential Total Cells Counted 100 Neutrophils % (Manual) 73.0 Lymphocytes % (Manual) 16.0 L Monocytes % (Manual) 10.0 Eosinophils % (Manual) 1.0 Platelet Estimate Normal Red Blood Cell Morphology Perf Basophilic Stippling Anisocytosis 1+ Macrocytosis 1+ Tear Drop Cells Few Sodium Level 140 134 L Potassium Level 2.2 *L 3.1 L Chloride Level 100 95 L Carbon Dioxide Level 27.8 27.3 Anion Gap 12 12 Blood Urea Nitrogen 0 L 1 L Creatinine 0.44 0.32 L Estimated GFR/1.73 m2 > 90 > 90 BUN/Creatinine Ratio 0.0 L 3.1 L Glucose Level 223 H 115 H Calcium Level 7.5 L 7.1 L Phosphorus Level 2.1 L Magnesium Level 1.3 L Total Bilirubin 1.6 H Aspartate Amino Transf (AST/SGOT) 336 H Alanine Aminotransferase (ALT/SGPT) 114 H Alkaline Phosphatase 209 H Ammonia 36 H Total Protein 5.9 L Albumin 2.2 L 2.0 L Globulin 3.7 Albumin/Globulin Ratio 0.6 L Lipase 13 L Human Chorionic Gonadotropin, Qual Negative Chemistry Comments Ethyl Alcohol Level 285 H Urine Specimen Description Cln catch midstream Urine Color Yellow Urine Clarity Clear Urine pH 6.5 Urine Specific [place] <=1.005 Urine Protein Negative Urine Glucose (UA) Negative Urine Ketones Negative Urine Occult Blood Negative Urine Nitrite Negative Urine Bilirubin Negative Urine Urobilinogen 0.2 Urine Leukocyte Esterase Negative Urine Culture Indicated Not ind Volume Urine Centrifuged 10 ml Urine Comment Urine Opiates Screen Negative Urine Methadone Screen Negative Urine Fentanyl Screen Negative Urine Barbiturates Screen Negative Urine Phencyclidine Screen Negative Urine Amphetamines Screen Negative Urine Benzodiazepines Screen Negative Urine Cocaine Screen Negative Urine Cannabinoids Screen Negative Drug Screen Comment EKG/XRAY/CT/US/VASC/MRI EKG : Additional Comment EKG interpreted by myself shows time of 18 17, rate 146, sinus tachycardia, normal axis, no ST changes. Prolonged QT. Chest X-Ray : Additional Comments Exam: CHEST,SINGLE VIEW CLINICAL HISTORY: aloc TECHNIQUE: Single view of the chest was obtained. COMPARISON: DI CHEST,SINGLE VIEW on DOS: 01/30/25, DI CHEST,SINGLE VIEW on DOS: 12/29/24, DI CHEST,SINGLE VIEW on DOS: 12/05/24, CT CT CHEST ABDOMEN PELVIS on DOS: 12/04/24, DI CHEST,SINGLE VIEW on DOS: 03/12/24 FINDINGS: The heart size and pulmonary vasculature are normal. The lungs are clear. IMPRESSION: NO ACUTE CARDIOPULMONARY PROCESS. Medical Decision Making Additional information obtaine: old records Findings Patient presents to the emergency room with reported history of seizures related to possible alcohol withdrawal. Patient does have history of seizures in his not been able to take her medications secondary to her nausea and vomiting. That has patient has experienced in seizures related to inability tolerate p.o. I do not feel she is safe for discharge. Benzodiazepines administered. Noted emergently low potassium of 2.2. Given such low potassium home security professional was consulted and requested repeat BNP of 2 supplementation that has long as that has increasing we would not require ICU. Noted other electrolyte disturbances consistent with vomiting. Differential Dx:Considerations: Include: Hyperventilation, Psychogenic seizure, Due to alcohol withdrawl, Anticonvulsant withdrawl, Due to closed head injury, Due to CVA/TIA, Due to drug ingestion, Due to eclampsia, Due to hypocalcemia, Due to hypoglycemia, Due to hyponatremia, Due to hypoxemia, Idiopathic, Due to mass lesion, Due to meningitis, Syncope, Encephalopathy, Epilepsy-break through, Epilepsy-status, Other Departure Admitted to Inpatient Unit: yes, to hospitalist Impression: Primary Impression: Convulsions Additional Impressions: Alcoholic intoxication Gastritis Hypokalemia Electrolyte disturbance Dehydration Condition: Guarded Referrals: NO PRIMARY CARE PROVIDER (PCP) Critical Care Note Total Time (mins): 30 Critical Care Note The very real possibility of a deterioration of this patient's condition required the highest level of my preparedness for sudden, emergent intervention. I provided critical care services, which included medication orders, frequent reevaluations of the patient's condition and response to treatment, ordering and reviewing test results, and discussing the case with various consultants. Excludes time spent performing separately billable procedures. The critical care time associated with the care of the patient was 30 minutes not counting procedures Signature Scribe Signature: No scribe Attestation: The note accurately reflects work and decisions made by me.Brad Ray MD 06/02/25 03:40 BRAD RAY MD Jun 01, 2025 18:16
--- NOTE | 2025-06-01 18:20 | ELECTROCARDIOGRAPH REPORT ---
[facility] Test Date: 2025-06-01 Test Time: 18:17:09 Pat Name: SAMANTHA WEIR Department: [facility]- Patient ID: [id number] Room: ORTHO [facility] Gender: F Roll Up Operator: : 1985 Requested By: MAURI BALES Order Number: [id number] Reading MD: Dr. Lazaro Burleson Measurements Intervals [place] Rate: 146 P: 0 IA: 0 QRS: -19 QRSD: 74 T: 65 QT: 349 QTc: 544 Interpretive Statements Atrial fibrillation Borderline left axis deviation Consider anterior infarct Prolonged QT interval Artifact in lead(s) I,II,III,aVR,aVL,aVF,V2 Electronically Signed On 06-04-2025 7:41:[address] Lazaro Burleson Please click the below link to view image of tracing.
[2025-06-01] MEDS: LevETIRAcetam 1,000MG in NS 100ml IV.SOLN premix IV ONE (18:29)
[2025-06-01] MEDS: normal saline 1000ml 1,000 ML IV ONE (18:29)
[2025-06-01] MEDS: ondansetron/PF 4mg/2ml inj IV ONE (18:35)
[2025-06-01] MEDS: diazepam inj 5 MG/ML inj. IV ONE (18:38)
--- NOTE | 2025-06-01 19:04 | RADIOLOGY REPORT ---
CLINICAL HISTORY: aloc TECHNIQUE: Single view of the chest was obtained. COMPARISON: DI CHEST,SINGLE VIEW on DOS: 01/30/25, DI CHEST,SINGLE VIEW on DOS: 12/29/24, DI CHEST,SINGLE VIEW on DOS: 12/05/24, CT CT CHEST ABDOMEN PELVIS on DOS: 12/04/24, DI CHEST,SINGLE VIEW on DOS: 03/12/24 FINDINGS: The heart size and pulmonary vasculature are normal. The lungs are clear. IMPRESSION: NO ACUTE CARDIOPULMONARY PROCESS.
[2025-06-01 19:34] LABS: MEAN PLATELET VOLUME 7.6 FL (7.4-10.4); RED CELL DISTRIBUTION WIDTH 18.7 % (11.5-14.5)
[2025-06-01 19:39] LABS: HCG SERUM QL NEGATIVE
[2025-06-01 19:54] LABS: CREATININE 0.44 MG/DL (0.40-0.90); ETHANOL 285 MG/DL (<10); PHOSPHORUS 2.1 MG/DL (2.3-4.5); TOTAL CARBON DIOXIDE 27.8 MMOL/L (24-32); eCRCL 145 ML/MIN; eGFR > 90 ML/MIN
[2025-06-01 20:17] LABS: EOSINOPHILS % (MANUAL) 1.0 % (0-6); LYMPHOCYTES % (MANUAL) 16.0 % (21-51); MONOCYTES % (MANUAL) 10.0 % (2-12); NEUTROPHILS % (MANUAL) 73.0 % (42-75); PLATELET ESTIMATE NORMAL
[2025-06-01] MEDS: potassium Cl 20 mEq SR tablet PO STA (20:52)
[2025-06-01] MEDS: magnesium sulf-water 2g/50mL 50 ML IV ONE (20:52)
[2025-06-01] MEDS: thiamine 100mg/ml 2ml inj. IV ONE (20:53)
--- NOTE | 2025-06-01 20:53 | RADIOLOGY REPORT ---
Exam: CT CT ABDOMEN PELVIS History: abd pain Comparison Study: CT CT ABDOMEN PELVIS W/ IV CONTRAST on DOS: 05/03/25, US ULTRASOUND OF ABDOMEN on DOS: 12/08/24, US ULTRASOUND OF ABDOMEN on DOS: 12/06/24, CT CT CHEST ABDOMEN PELVIS on DOS: 12/04/24 TECHNIQUE: Multidetector CT of the abdomen and pelvis was performed from lung bases to pubic symphysis. Imaging was performed without IV contrast. Axial, coronal, and sagittal multiplanar reformats were obtained from the axial data set by the technologist. RADIATION DOSE: CTDI vol 11.68 mGy. DLP 630.13 mGy.cm Findings: Limited evaluation of the solid organs in the absence of IV contrast. Lungs: Basilar atelectasis/scarring. Liver: Unremarkable. Spleen: Unremarkable. Pancreas: Mild peripancreatic stranding. Gallbladder: Mild distention of the gallbladder. Adrenals: Unremarkable Kidneys: Unremarkable. Pelvic Viscera: Unremarkable. Vasculature: Unremarkable. Retroperitoneum: Shotty retroperitoneal nodes. Moderate abdominopelvic ascites. Bowel: Portions of the colon are decompressed, limiting assessment. There is submucosal fat deposition /edema within the ascending colon. No bowel obstruction. Probable interval increase in wall thickening about the small bowel within the left upper quadrant, suboptimally assessed. Musculoskeletal: Chronic L1 compression with associated Schmorl's node. Soft tissues: Unremarkable Impression: 1. Probable wall thickening about the small bowel within the left upper quadrant, suboptimally assessed. 2. Slight interval increase in abdominopelvic ascites. 3. Additional unchanged findings as detailed.
--- NOTE | 2025-06-01 20:55 | RADIOLOGY REPORT ---
EXAM: DI KNEE, COMP 4 VW MIN INDICATION: FALL TECHNIQUE: 3 views of the right knee COMPARISON: CT CT LOWER EXTREMITY on DOS: 05/04/25 FINDINGS/IMPRESSION: No radiographic evidence of an acute osseous abnormality. There is no acute fracture, osseous malalignment, or aggressive focal osseous lesion. There is no radiographically apparent joint space narrowing.
[2025-06-01] MEDS: Potassium Cl inj 40 MEQ in normal saline 500ml IV soln 500 ML IV ONE (22:10)
[2025-06-01 22:29] LABS: LEUKOCYTE ESTERASE ,URINE NEGATIVE (Neg); NITRITES, URINE NEGATIVE (Neg); OCCULT BLOOD,URINE NEGATIVE (Neg)
[2025-06-01 22:36] LABS: UA COLLECTION TYPE CLN CATCH MIDSTREAM
[2025-06-01 22:42] LABS: URINE AMPHETAMINE SCREEN NEGATIVE (Neg); URINE BARBITUATE SCREEN NEGATIVE (Neg); URINE BENZODIAZEPINES SCREEN NEGATIVE (Neg); URINE CANNABINOID SCREEN NEGATIVE (Neg); URINE COCAINE SCREEN NEGATIVE (Neg); URINE METHADONE SCREEN NEGATIVE (Neg); URINE OPIATE SCREEN NEGATIVE (Neg); URINE PHENCYCLIDINE SCREEN NEGATIVE (Neg)
[2025-06-02] MEDS ORDERED: potassium Cl 40MEQ/1/2NS 520ml 520 ML IV SCH
[2025-06-02] MEDS: normal saline 1000ml 1,000 ML IV ONE (00:18)
[2025-06-02] MEDS: diazepam inj 5 MG/ML inj. IV ONE (00:19)
[2025-06-02 00:45] LABS: CREATININE 0.32 MG/DL (0.40-0.90); TOTAL CARBON DIOXIDE 27.3 MMOL/L (24-32); eCRCL 199 ML/MIN; eGFR > 90 ML/MIN
[2025-06-02] MEDS ORDERED: potassium Cl 20 mEq SR tablet PO PRN ×2 (02:00)
[2025-06-02] MEDS ORDERED: mag hydrox/Alum hydrox/simeth 30ml oral suspension PO PRN (02:00)
[2025-06-02] MEDS ORDERED: magnesium hydroxide 30ml (MOM) UD suspension PO PRN (02:00)
[2025-06-02] MEDS ORDERED: diazepam inj 5 MG/ML inj. IV PRN (02:15)
[2025-06-02] MEDS: normal saline 1000ml 1,000 ML IV SCH (02:17)
--- NOTE | 2025-06-02 02:45 | HISTORY AND PHYSICAL-Residence ---
History & Physical Providers to CC Resident Creating Document: VAIBHAV ALAMO, RES ~ History of Present Illness Primary Medical Doctor: Criselda Tapia Reason for Admit\Complaint: Alcohol withdrawal seizure History of Present Illness This is a 39-year-old female with a history of lupus, alcohol use disorder, alcohol withdrawal seizures came to the ER with complaint of seizure. Yesterday afternoon about 2:00 p.m. she had an episode of seizure which was witnessed by her fiance. She does not remember the event, though reports confusion after the episode. Denies any tongue biting, bladder or bowel incontinence during the episode. She takes Keppra 500 mg b.i.d. at home, reports she missed the dose yesterday. Last drink was yesterday morning at 10:30 a.m.. She reports tremors, feeling cold, nausea, 7-8 episodes of vomiting, epigastric pain, denies sweating, visual, tactile, auditory hallucinations. She reports pain in her knee post seizure episode. Alcohol history-she drinks about 750 mL of whiskey daily, has been drinking for about last six months, previously used to drink wine. She tried quitting alcohol before, was sent to go to rehab but her insurance declined. She has multiple admissions for alcohol withdrawal seizures, the last admission was on 05/03/2025, left AMA. She also reports dark black stools today. Reports that she did have black stools in the past. Denies any previous episodes of hematemesis. Never had an endoscopy or colonoscopy done. Denies using NSAIDs, not on blood thinners. Allergies: Coded Allergies: tramadol (Verified Allergy, Intermediate, SEIZURES, 05/03/25) amoxicillin (Verified Allergy, Unknown, 05/03/25) Home Medications Home Medications Active Pantoprazole Sodium 40 Mg Tablet.dr 40 Mg PO BKF 30 Days Vitamin B-1 (Thiamine HCl) 50 Mg Tablet 2 Tab PO DAILY 30 Days Reported Hydrocodon-Acetaminophen 5-325 (Hydrocodone Bit/Acetaminophen) 5 Mg-325 Mg Tablet 2 Tab PO Q6H PRN Tylenol (Acetaminophen) 325 Mg Tablet 1 Tab PO Q8H PRN 30 Days Past Medical History Past Medical History Lupus, not on any medications Alcohol abuse Alcohol withdrawal seizures Past Surgical History Surgical History Comment Two C-sections. Right wrist orthopedic surgery. Family History Family History: FH: CABG (coronary artery bypass surgery) (Mother,) FH: cirrhosis (Father, in 72) FH: diabetes mellitus (Sister) FH: lupus sister Past Social History Social History Comment Quit smoking six months ago, she used to smoke four cigarettes a day for at least three years. She endorses drinking around 750 mL of whiskey every day since seven months ago. 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 Smoking: Quit less than 1 year Alcohol Use: Heavy Drug Use: None Lives with: Alone Lives In: Home Occupation: unemployed ROS Constitutional: Reports: weakness Eyes: Denies: no symptoms reported, see HPI, pain, discharge, blurred vision, double vision, itching, photophobia, redness, tearing, other ENT: Denies: no symptoms reported, see HPI, ear pain, ear bleeding, ear discharge, hearing loss, ear ringing, nose pain, nose bleeding, nose congestion, nose discharge, throat pain, throat swelling, voice change, mouth pain, mouth bleeding, mouth swelling, other Respiratory: Denies: no symptoms reported, see HPI, cough, orthopnea, shortness of breath, SOB with exertion, SOB at rest, stridor, wheezing, hemoptysis, pain with breathing, other Cardiovascular: Denies: no symptoms reported, see HPI, chest pain, left arm pain, diaphoresis, lightheadedness, syncope, edema, palpitations, irregular heart rate, other Gastrointestinal: Reports: nausea, vomiting, melena Genitourinary: Denies: no symptoms reported, see HPI, burning, discharge, dysuria, frequency, flank pain, hematuria, incontinence, pain, decreased urine output, urgency, other Neurological: Reports: tonic-clonic seizures Musculoskeletal: Denies: no symptoms reported, see HPI, pain, swelling, back pain, gout, joint pain, joint swelling, muscle pain, muscle swelling, muscle stiffness, neck pain, other Exam Vitals: Vital Signs Date Time Temp Pulse Resp B/P (MAP) Pulse Ox O2 Delivery O2 Flow Rate FiO2 06/02/25 00:19 22 06/01/25 23:27 137 98 06/01/25 22:24 165/86 (112) 0 06/01/25 18:04 98.0 General: General: Well alert, well oriented, in mild distress. HEENT: Conjunctive are pink, sclerae clear, no icterus, Neck: Supple, no JVD, Chest: Equal air entry on both lungs, no additional sounds no rhonchi no wheezing at the moment. Cardiovascular: S1-S2 regular sinus rhythm and, regular rate, no gallops, no rubs, no murmurs Abdomen: Soft, tenderness in the epigastric region, bowel sounds heard, no guarding, no rigidity Extremities: No obvious deformities, no pitting edema bilaterally, capillary refill intact, peripheral pulsations are intact on both sides Central Nervous System: No focal neurological deficits, no motor or sensory weakness in all 4 extremities, could move all 4 extremities, 2+ deep tendon reflexes, negative Babinski. Musculoskeletal: No joint swelling, deformities, inflammations, and no scoliosis and back tenderness Skin: Warm and dry, dry mouth. Diagnostic Data Last Recorded Lab Results: 06/02/25 1057 06/02/25 0615 Advance Care Planning Advanced Care plannin - 30 Minutes (I spent 17 minutes in discussing various resuscitative measures, the patient chose to be full code.) Additional Plan Assessment This is a 39-year-old female with a history of lupus, alcohol use, alcohol withdrawal seizures, came to the ER after an episode of seizure secondary to alcohol withdrawal. Plan Alcohol withdrawal seizures CIWA score 26 Alcohol level-285 Last drink was yesterday morning Diazepam Q 15 min PRN for seizures Placed on severe alcohol withdrawal protocol, Valium p.r.n., Ativan p.r.n. IV thiamine, IV folic acid, multivitamins Received one dose of Keppra 1000 mg in the ER Continued patient's home medication Keppra 500 mg b.i.d. Electrolyte abnormalities Hypokalemia, hypomagnesemia, hyponatremia, hypochloremia, hypophosphatemia Electrolyte abnormality secondary to alcohol abuse, vomitings On potassium, magnesium replacement protocol Received 1 L bolus, On NS@ 100 mL/hour Upper GI bleed Likely secondary to alcohol-induced gastritis Patient had an episode of melena. Hemoglobin 14.6 Stool occult blood ordered Pantoprazole 40 mg IV b.i.d. NPO Consult GI for possible EGD. Macrocytosis MCV 110.7 Likely secondary to alcohol Vitamin B12 ordered. Elevated transaminases AST 336, ALT 114, alkaline phosphatase 209 AST/ALT-3:1 Code status: Full code DVT prophylaxis:None GI prophylaxis:pantop diet: NPO Vaibhav Alamo M.D PGY2 Date of Service: Jun 02, 2025 Billing Provider: CARLIN HAMMOND MD Addendum Attestation I agree with the residents assessment and plan as below: 39 year old female with ETOH use disorder admitted with a seizure Plan: PRN VALIUM ETOH withdrawal protocol thiamine and folic acid K and mg repletion CCT 60 min using HIPPA compliant A/V technology VAIBHAV ALAMO, RES Jun 02, 2025 02:45 CARLIN HAMMOND MD Jun 02, 2025 12:36
[2025-06-02] MEDS: ondansetron/PF 4mg/2ml inj IV PRN (03:09)
[2025-06-02] MEDS: potassium Cl 40MEQ/1/2NS 520ml 520 ML IV PRN (03:10)
[2025-06-02] MEDS: Potassium Cl inj 40 MEQ in normal saline 500ml IV soln 500 ML IV SCH (03:11)
[2025-06-02] MEDS: diazepam inj 5 MG/ML inj. IV PRN (03:44)
[2025-06-02 07:00] LABS: MEAN PLATELET VOLUME 7.9 FL (7.4-10.4); RED CELL DISTRIBUTION WIDTH 18.7 % (11.5-14.5)
[2025-06-02] MEDS: docusate sod 100mg capsule PO SCH (08:00)
[2025-06-02] MEDS: K and/or MAG REPLACEMENT MC SCH (08:00)
[2025-06-02] MEDS: folic acid 1mg/0.2ml inj IV SCH (08:56)
[2025-06-02] MEDS: multivitamins, therapeutics tablet PO SCH (08:57)
[2025-06-02] MEDS: thiamine 100mg/ml 2ml inj. IV SCH (08:58)
[2025-06-02] MEDS: heparin, porcine 5000 units/ml vial SQ SCH (08:59)
[2025-06-02] MEDS: magnesium sulf-water 2g/50mL 50 ML IV PRN (09:01)
[2025-06-02] MEDS: magnesium sulf-water 4G/100mL 100 ML IV PRN (09:02)
--- NOTE | 2025-06-02 09:19 | CONSULTATION REPORT - RESIDENT ---
Consult Providers to CC Resident Creating Document: SKY PEDERSON RES History of Present Illness Reason for Admit\Complaint: Melena History of Present Illness This is a 39-year-old female with a history of lupus, alcohol use disorder, alcohol withdrawal seizures came to the ER with complaint of witnessed GTCSs. Last drink was yesterday. She has moderate alcohol withdrawal symptoms including tremors, feeling cold, nausea, 7-8 episodes of vomiting, epigastric pain. C/o one episode of black tarry stools today morning. h/o similar complains in the past. Never had an endoscopy or colonoscopy before. Alcohol history-she drinks about 750 mL of whiskey daily, has been drinking for about last six months. No complaints of abd pain, abd distension. hematemesis, yellowish discoloration of the skin. Her last drink was a few hours ago Allergies: Coded Allergies: tramadol (Verified Allergy, Intermediate, SEIZURES, 05/03/25) amoxicillin (Verified Allergy, Unknown, 05/03/25) Home Medications Home Medications Active Pantoprazole Sodium 40 Mg Tablet.dr 40 Mg PO BKF 30 Days Vitamin B-1 (Thiamine HCl) 50 Mg Tablet 2 Tab PO DAILY 30 Days Reported Hydrocodon-Acetaminophen 5-325 (Hydrocodone Bit/Acetaminophen) 5 Mg-325 Mg Tablet 2 Tab PO Q6H PRN Tylenol (Acetaminophen) 325 Mg Tablet 1 Tab PO Q8H PRN 30 Days Past Medical History Past Medical History Lupus, not on any medications Alcohol abuse Alcohol withdrawal seizures Past Surgical History Surgical History Comment Two C-sections. Right wrist orthopedic surgery. Family History Family History: FH: CABG (coronary artery bypass surgery) (Mother,) FH: cirrhosis (Father, in 72) FH: diabetes mellitus (Sister) FH: lupus sister Past Social History Social History Comment Quit smoking six months ago, she used to smoke four cigarettes a day for at least three years. She endorses drinking around 750 mL of whiskey every day since seven months ago. 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 HEENT: Conjunctive are pink, sclerae clear, no icterus, Neck: Supple, no JVD, Chest: Equal air entry on both lungs, no additional sounds no rhonchi no wheezing at the moment. Cardiovascular: S1-S2 regular sinus rhythm and, regular rate, no gallops, no rubs, no murmurs Abdomen: Soft, tenderness in the epigastric region, bowel sounds heard, no guarding, no rigidity Extremities: No obvious deformities, no pitting edema bilaterally, capillary refill intact, peripheral pulsations are intact on both sides Central Nervous System: No focal neurological deficits, no motor or sensory weakness in all 4 extremities, could move all 4 extremities, 2+ deep tendon reflexes, negative Babinski. Musculoskeletal: No joint swelling, deformities, inflammations, and no scoliosis and back tenderness Skin: Warm and dry, dry mouth. Diagnostic Data Last Recorded Lab Results: 06/02/2561406/02/25614 Additional Plan Assessment This is a 39-year-old female with a history of lupus, alcohol use, seizures, came to the ER after an episode of seizure possibly again secondary to alcohol withdrawal. GI consult requested to evaluate one episode of melena and past history of the same. Likely secondary to alcohol-induced gastritis H&H stable at 12.8 and 37.9 Awiaitng Stool occult blood Plan: Continue Pantoprazole 40 mg IV b.i.d. We will continue to monitor H&H and further episode of melena. Once withdrawal symptoms are stable diagnostic upper endoscopy with possible interventions to be performed. Elevated transaminases The pattern and is very consistent with alcohol associated liver injury AST 336, ALT 114, AST/ALT-3:1 We will monitor the LFTs Total Bilirubin- 1.6. Coagulation profile ordered. seizures: Again possibly secondary to alcohol withdrawal. Apparently patient has been treated with Keppra. I will defer the primary care physician whether or not to continue Keppra. CIWA score 26 Electrolyte abnormalities Hypokalemia, hypomagnesemia, hyponatremia, hypochloremia, hypophosphatemia Monitor electrolytes closely Other condition managed as per hospitalist team. Code status: Full code DVT prophylaxis:None Diet: regular diet Sky Pederson Internal Medicine, PGY 1 [facility] Date of Service: Jun 02, 2025 Billing Provider: LAURIE ALLEN MD, SHIVANI, RES Jun 02, 2025 09:19 LAURIE ALLEN MD Jun 02, 2025 14:59
[2025-06-02 11:20] LABS: MEAN PLATELET VOLUME 7.8 FL (7.4-10.4); RED CELL DISTRIBUTION WIDTH 18.2 % (11.5-14.5)
[2025-06-02] MEDS: acetaminophen 1,000mg/100ml IV 100 ML IV SCH (13:48)
[2025-06-02] MEDS ORDERED: acetaminophen 1,000mg/100ml IV 100 ML IV SCH (14:00)
[2025-06-02 16:29] VITALS: BP 124/85; PULSE 118; RESP 18; TEMP 98; O2SAT 100
[2025-06-02 18:00] VITALS: BP 114/78; PULSE 110; RESP 16; TEMP 97.8; O2SAT 97
--- NOTE | 2025-06-02 18:33 | PROGRESS NOTE- Residence ---
Progress Note - Resident Providers to CC Resident Creating Document: JEANNINE MARIE, RES ~ Antibiotic Timeout Antibiotic Ordered?: Yes Subjective This is a 39-year-old female, was seen on bedside she reports yesterday morning she had seizures, she experienced seizures right after drinking, she is feeling sweaty nauseated, vomiting and complaining of anxiety she has been taking Keppra for seizure disorder since last month and missed two doses of Keppra and due to which she thinks the seizures came back. She also reports of hallucinations due to alcohol withdrawal in the last month. In addition to that she also reports she had history of seizures while she was a and during teenager she was free for seizure for 1 year then she dced antiseizure medications. She dont remember drug other than keppra. Objective Vital Signs Date Time Temp Pulse Resp B/P (MAP) Pulse Ox O2 Delivery O2 Flow Rate FiO2 06/02/25 16:41 111 06/02/25 16:35 18 06/02/25 16:29 98.0 124/85 (98) 100 Room Air 06/02/25 05:53 0 Result Diagram: 06/02/25 1057 06/02/25 0615 General: General: Well alert, well oriented, in mild distress. HEENT: Conjunctive are pink, sclerae clear, no icterus, Neck: Supple, no JVD, Chest: Equal air entry on both lungs, no additional sounds no rhonchi no wheezing at the moment. Cardiovascular: S1-S2 regular sinus rhythm and, regular rate, no gallops, no rubs, no murmurs Abdomen: Soft, tenderness in the epigastric region, bowel sounds heard, no guarding, no rigidity Extremities: No obvious deformities, no pitting edema bilaterally, capillary refill intact, peripheral pulsations are intact on both sides Central Nervous System: No focal neurological deficits, no motor or sensory weakness in all 4 extremities, could move all 4 extremities, 2+ deep tendon reflexes, negative Babinski. Musculoskeletal: No joint swelling, deformities, inflammations, and no scoliosis and back tenderness Skin: Warm and dry, dry mouth. Advance Care Planning Advanced Care plannin - 30 Minutes Plan Plan Admit this patient for in view of possible in view of alcohol withdrawal/alcohol intoxication Plan Alcohol Withdrawl Seizures/Alcohol Intoxication CIWA score 12 Utox Alcohol level-285 Last drink was yesterday morning Diazepam Q 15 min PRN for seizures Placed on severe alcohol withdrawal protocol, Valium p.r.n., Ativan p.r.n. IV thiamine, IV folic acid, multivitamins Received one dose of Keppra 1000 mg in the ER Continued patient's home medication Keppra 500 mg b.i.d Hypokalemia Resolved Hypomagnesemia Secondary to Alcohol Use on Mg protocol Hyponatremia, hypochloremia, hypophosphatemia Na 134, Cl 95, phosphorous 2.1 Electrolyte abnormality secondary to alcohol abuse, vomitings On potassium, magnesium replacement protocol Received 1 L bolus, continue NS 100 ml/HR Follow up CMP Upper GI bleed Likely secondary to alcohol-induced gastritis Patient had an episode of melena. Hemoglobin 11.3 dropped from 14.6 Awaiting Stool occult blood Pantoprazole 40 mg IV b.i.d. NPO afterdmight Consulted GI recommended Upper Endoscopy Macrocytic Anemia Hgb 11.3 MCV 111.9 Likely secondary to alcohol Awaiting vitb12 Elevated transaminases AST 336, ALT 114 AST/ALT ratio indicative of alcoholic hepatitis Will consider U/S Code status: Full code Diet: NPO aftermidnight DVT prophylaxis: Heparin GI prophylaxis:Pantoprazole 40 mg IV Date of Service: Jun 02, 2025 Billing Provider: CARMELITA GARCIA MD,JEANNINE, RES Jun 02, 2025 18:33
[2025-06-02] MEDS: HYDROcodone/acetaminophen 5mg/325mg tablet PO ONE (20:05)
[2025-06-02] MEDS: magnesium Cl slow-release 64mg tablet PO PRN (20:06)
[2025-06-02 20:11] VITALS: RESP 16; O2SAT 95
[2025-06-02 21:13] LABS: MEAN PLATELET VOLUME 8.8 FL (7.4-10.4); RED CELL DISTRIBUTION WIDTH 18.5 % (11.5-14.5)
[2025-06-02 22:00] VITALS: BP 117/74; PULSE 97; RESP 16; TEMP 98; O2SAT 97
[2025-06-03] VITALS (10 sets, daily range): BP systolic 102–129; BP diastolic 70–101; PULSE 96–108; RESP 15–22; TEMP 97.3–98.5; O2SAT 95–100
[2025-06-03 02:03] LABS: OCCULT BLOOD STOOL NEGATIVE (Neg)
[2025-06-03 05:39] LABS: MEAN PLATELET VOLUME 7.9 FL (7.4-10.4); RED CELL DISTRIBUTION WIDTH 18.4 % (11.5-14.5)
[2025-06-03 05:48] LABS: INR 1.3 INR
[2025-06-03 05:58] LABS: CREATININE 0.46 MG/DL (0.40-0.90); PHOSPHORUS 2.5 MG/DL (2.3-4.5); TOTAL CARBON DIOXIDE 30.2 MMOL/L (24-32); eCRCL 139 ML/MIN; eGFR > 90 ML/MIN
[2025-06-03 07:23] LABS: EOSINOPHILS % (MANUAL) 2.0 % (0-6); LYMPHOCYTES % (MANUAL) 36.0 % (21-51); MONOCYTES % (MANUAL) 12.0 % (2-12); NEUTROPHILS % (MANUAL) 50.0 % (42-75); PLATELET ESTIMATE DECREASED
[2025-06-03] MEDS ORDERED: simethicone 40mg/0.6ml oral drops 15ml ONE (08:00)
[2025-06-03] MEDS ORDERED: LIDOcaine 2% Viscous 15ml cup ONE (08:00)
[2025-06-03] MEDS ORDERED: LIDOcaine 2% (20mg/ml) 5ml vial ONE (09:19)
[2025-06-03] MEDS ORDERED: MIDAZolam 1 MG/ML 5ML VIAL ONE (10:00)
[2025-06-03] MEDS ORDERED: propofol inj 20 ML IV ONE (10:17)
[2025-06-03] MEDS: loperamide 2mg capsule PO PRN (11:30)
[2025-06-03 13:45] LABS: C DIFF ANTIGEN NEGATIVE (NEGATIVE); C DIFF SPECIMEN=DIARRHEA? ACCEPTABLE; C DIFFICILE TOXINS A&B NEGATIVE (Neg)
[2025-06-03] MEDS ORDERED: loperamide 2mg capsule PO PRN (15:40)
[2025-06-03] MEDS ORDERED: mag hydrox/Alum hydrox/simeth 30ml oral suspension PO PRN (15:40)
[2025-06-03] MEDS: loperamide 2mg capsule PO ONE (16:30)
[2025-06-03] MEDS ORDERED: dextrose 50%-water 50ml dispensing syringe IV PRN ×2 (17:15→18:55)
[2025-06-03 17:59] LABS: MEAN PLATELET VOLUME 8.4 FL (7.4-10.4); RED CELL DISTRIBUTION WIDTH 18.4 % (11.5-14.5)
--- NOTE | 2025-06-03 18:47 | PROGRESS NOTE- Residence ---
Progress Note - Resident Providers to CC Resident Creating Document: JEANNINE MARIE, MADHAVI ~ Antibiotic Timeout Antibiotic Ordered?: No Subjective Patient was seen and examined on bedside, reports she had panic attack and nightmare. Objective Vital Signs Date Time Temp Pulse Resp B/P (MAP) Pulse Ox O2 Delivery O2 Flow Rate FiO2 06/03/25 16:30 12 06/03/25 10:50 96 121/89 (100) 100 Room Air 0.0 06/03/25 10:21 97.9 Result Diagram: 06/03/25 1708 06/03/25 0453 General: General: Well alert, well oriented, in mild distress. HEENT: Conjunctive are pink, sclerae clear, no icterus, Neck: Supple, no JVD, Chest: Equal air entry on both lungs, no additional sounds no rhonchi no wheezing at the moment. Cardiovascular: S1-S2 regular sinus rhythm and, regular rate, no gallops, no rubs, no murmurs Abdomen: Soft, tenderness in the epigastric region, bowel sounds heard, no guarding, no rigidity Extremities: No obvious deformities, no pitting edema bilaterally, capillary refill intact, peripheral pulsations are intact on both sides Central Nervous System: No focal neurological deficits, no motor or sensory weakness in all 4 extremities, could move all 4 extremities, 2+ deep tendon reflexes, negative Babinski. Musculoskeletal: No joint swelling, deformities, inflammations, and no scoliosis and back tenderness Skin: Warm and dry, dry mouth. Coagulation Studies Laboratory Tests Test 06/03/25 04:53 Prothrombin Time 12.9 SECONDS (9.0-12.0) H INR International Normalized Ratio 1.3 INR Coagulation Comments Advance Care Planning Advanced Care plannin - 30 Minutes Plan Plan Admit this patient for in view of possible in view of alcohol withdrawal/alcohol intoxication. Plan Alcohol Withdrawl Seizures/Alcohol Intoxication CIWA score 12 Utox Alcohol level-285 Received one dose of Keppra 1000 mg in the ER Continued patient's home medication Keppra 500 mg b.i.d Patient on moderate alcohol withdrawal protocol Patient is experiencing tremors today. In view of chronic diarhhea, started patient on pancreatic enzyme supplements,as diarrhea could be due to pancreatic insufficiency due to alcohol use Follow-up with EEG,then consult neurology Upper GI bleed Possibly Secondary to Alcohol-Induced Gastritis Likely secondary to alcohol-induced gastritis Patient had an episode of melena. Hemoglobin is 10.2, dropped from 14.6 Stool occult blood negative Continue Pantoprazole 40 mg IV b.i.d. Consulted GI who recommended upper endoscopy today patient underwent endoscopy which showed nonbleeding gastric ulcer, reflux esophagitis and non bleeding gastric ulcer. Alcohol-Induced Liver Injury AST 247,ALT 88, AST/ALT ratio is greater than 1.5 Total bilirubin is 1.3 Less likely alcohol-induced hepatitis as bilirub <3 Hypokalemia Resolved Hypomangesimia Resolved Hyponatremia, hypochloremia, hypophosphatemia Resolved Macrocytic Anemia Secondary to Chronic Alcohol Use Hgb 10.2 [id number] Likely secondary to alcohol Awaiting vitb12 Code status: Full code Diet: NPO aftermidnight DVT prophylaxis: Heparin GI prophylaxis:Pantoprazole 40 mg IV Date of Service: Jun 03, 2025 Billing Provider: MICK SWANSON MD Common Visit Codes: [id number] INP/OBS CARE(HIGH) JEANNINE MARIE, RES Jun 03, 2025 18:47 MICK SWANSON MD Jun 04, 2025 06:27
[2025-06-03] MEDS ORDERED: haloperidol lactate 5mg/ml inj IM PRN (18:55)
[2025-06-03] MEDS: diazepam inj 5 MG/ML inj. IV PRN (19:24)
[2025-06-03] MEDS: LIPASE/PROTEASE/AMYLASE 10,500 units CAPSULE.DR PO SCH (19:24)
[2025-06-03] MEDS: thiamine 100mg/ml 2ml inj. IV SCH (19:25)
[2025-06-03] MEDS: nystatin 500,000 unit/5ML UD oral suspension PO SCH (19:25)
[2025-06-03] MEDS: lactobacillus rhamnosus 10,000 MMU CELLS/CAPSULE PO SCH (19:25)
[2025-06-04] MEDS: morphine 4 MG/ML inj SYRINge IV ONE (03:11)
[2025-06-04] MEDS: HYDROmorphone inj. 0.5 MG/0.5 ML DISP.SYRIN IV ONE (04:26)
[2025-06-04 06:00] VITALS: BP 121/74; PULSE 109; RESP 14; TEMP 98.6; O2SAT 97
[2025-06-04 07:05] LABS: MEAN PLATELET VOLUME 8.3 FL (7.4-10.4); RED CELL DISTRIBUTION WIDTH 18.1 % (11.5-14.5)
[2025-06-04 07:08] LABS: INR 1.3 INR
[2025-06-04 07:15] LABS: CREATININE 0.38 MG/DL (0.40-0.90); PHOSPHORUS 2.6 MG/DL (2.3-4.5); TOTAL CARBON DIOXIDE 31.0 MMOL/L (24-32); eCRCL 168 ML/MIN; eGFR > 90 ML/MIN
[2025-06-04] MEDS ORDERED: LIPASE/PROTEASE/AMYLASE 4,200 unit CAPSULE.DR PO SCH (07:30)
[2025-06-04 08:00] VITALS: RESP 18; O2SAT 97
[2025-06-04] MEDS: folic acid 1mg/0.2ml inj IV SCH (08:00)
[2025-06-04] MEDS ORDERED: multivitamins, therapeutics tablet PO SCH ×3 (08:00)
--- NOTE | 2025-06-04 08:37 | RADIOLOGY REPORT ---
INDICATION: Pain TECHNIQUE: Multiple real-time sonographic images were obtained of the right upper quadrant. COMPARISON: CT CT ABDOMEN PELVIS on DOS: 06/01/25, CT CT ABDOMEN PELVIS W/ IV CONTRAST on DOS: 05/03/25, US ULTRASOUND OF ABDOMEN on DOS: 12/08/24, US ULTRASOUND OF ABDOMEN on DOS: 12/06/24, CT CT CHEST ABDOMEN PELVIS on DOS: 12/04/24 FINDINGS: The liver demonstrates heterogeneous nodular echotexture without focal mass lesions. The liver measures 15 cm. There is no intrahepatic or extrahepatic ductal dilatation. The common duct measures 0.3 cm. The gallbladder is without evidence of stone or sludge. The gallbladder wall measures 0.3 cm and is within normal limits. The right kidney measures 10.5 cm. The right kidney is normal in contour, size, and shape. The echogenicity is normal. There is no hydronephrosis. The pancreas is not well visualized due to overlying bowel gas. IMPRESSION: Hepatic cirrhosis. Small volume ascites. [employer] SAIGE
[2025-06-04 08:47] LABS: BASOPHILS % (MANUAL) 1.0 % (0-1); EOSINOPHILS % (MANUAL) 1.0 % (0-6); LYMPHOCYTES % (MANUAL) 55.0 % (21-51); MONOCYTES % (MANUAL) 7.0 % (2-12); NEUTROPHILS % (MANUAL) 36.0 % (42-75); PLATELET ESTIMATE DECREASED
[2025-06-04 10:00] VITALS: BP 118/70; PULSE 117; RESP 18; TEMP 97.9; O2SAT 96
--- NOTE | 2025-06-04 10:05 | CONSULTATION REPORT ---
History of Present Illness Providers to CC ~ Reason for Admit\Admit Dx: Brandy Refering MD: Criselda Tapia Allergies: Coded Allergies: tramadol (Verified Allergy, Intermediate, SEIZURES, 05/03/25) amoxicillin (Verified Allergy, Unknown, 05/03/25) Home Medications Home Medications Active Pantoprazole Sodium 40 Mg Tablet.dr 40 Mg PO BKF 30 Days Vitamin B-1 (Thiamine HCl) 50 Mg Tablet 2 Tab PO DAILY 30 Days Reported Hydrocodon-Acetaminophen 5-325 (Hydrocodone Bit/Acetaminophen) 5 Mg-325 Mg Tablet 2 Tab PO Q6H PRN Tylenol (Acetaminophen) 325 Mg Tablet 1 Tab PO Q8H PRN 30 Days Past Family History Family History: FH: CABG (coronary artery bypass surgery) (Mother,) FH: cirrhosis (Father, in 72) FH: diabetes mellitus (Sister) FH: lupus sister Physical Exam Last Vital Signs Recorded: Temperature: 98.5, Source: Oral, Heart Rate: 108, Respiratory Rate: 18, BP: 113/81, Pulse Oximetry: 97, Weight: 54.000 Results Diagram Lab Result Diagram: 06/04/2515 06/04/2515 Assessment/Plan Additional Plan [place] [facility] Note # Demographics Consult Type: General Neurology Patient Location: Inpatient First Name: Manuela Last Name: Kt Date of : 1985 Age: 39 Gender: Female Facility: [facility] Time of Initial Page ( Time): 06/04/2025 09:47 First Contact with Site ( Time): 06/04/2025 09:47 # HPI Chief Complaint: - seizure History: 39 y/o woman with of EtOH abuse and withdrawal who is admitted with seizures. Patient is on Keppra 500mg BID but skipped two doses. Is experiencing alcohol withdrawal currently. Patient reports she has had seizures since age 1. After going two years without a seizure her medication was stopped. Then had another seizure while sick with influenza and was put back on Keppra. Did miss does of Keppra the night she drank. # Scores Time of exam and NIHSS (): 06/04/2025 09:56 Level of Consciousness 1a: [0] = Alert; keenly responsive LOC Questions 1b: [0] = Answers both questions correctly LOC Commands 1c: [0] = Performs both tasks correctly Best Gaze 2: [0] = Normal Visual 3: [0] = No visual loss Facial Palsy 4: [0] = Normal symmetrical movements Motor Arm Left 5a: [0] = No drift Motor Arm Right 5b: [0] = No drift Motor Leg Left 6a: [0] = No drift Motor Leg Right 6b: [0] = No drift Limb Ataxia 7: [0] = Absent Sensory 8: [0] = Normal Best Language 9: [0] = No aphasia Dysarthria 10: [0] = Normal Extinction and Inattention 11: [0] = No abnormality NIHSS Total: 0 # PMH-FH- Past Medical History: malnutrition, seizures, Alcoholism # Assessment Impression: - Seizure Unclear if all seizures provoked vs some unprovoked (patient reporting mild illness can cause seizures) # Plan Imaging: (urgency: routine): - MRI Brain with AND without contrast Diagnostic Test: - EEG Medication: Increase Keppra to 750mg BID Other: - If patient has any neurological deterioration please call me back immediately - I have discussed my recommendations with the referring provider Additional Recommendations: Okay to get MRI and EEG as outpatient, though patient reporting she prefers to get as inpatient. Alcohol withdrawal treatment per primary team # Logistics Attestation of consult completion: The patient is located at: [facility]. Facility staff participated in the visit. I performed this telemedicine visit from my offsite office utilizing interactive 2 way audio and visual telecommunication technology at the request of the onsite inpatient provider. Total time spent in telemedicine encounter: I spent 15 minutes reviewing clinical data and/or imaging, obtaining history, examining the patient, communicating with the onsite care team, and in preparation of this report. # Demographics First Name: Manuela Last Name: Kt Facility: [facility] HARRISON SCHROEDER MD Jun 04, 2025 10:05
[2025-06-04] MEDS: diazepam inj 5 MG/ML inj. IV PRN (10:16)
--- NOTE | 2025-06-04 12:54 | PROGRESS NOTE- Residence ---
Progress Note - Resident Providers to CC Resident Creating Document: JEANNINE MARIE, MADHAVI ~ Antibiotic Timeout Antibiotic Ordered?: No Subjective Patient was seen and examined on bedside, reports she is physically feeling better, reports that she is anxious. Objective Vital Signs Date Time Temp Pulse Resp B/P (MAP) Pulse Ox O2 Delivery O2 Flow Rate FiO2 06/04/25 10:16 18 06/04/25 10:00 97.9 117 118/70 (86) 96 Room Air 06/03/25 19:47 0.0 Result Diagram: 06/04/2561406/04/25614 General: General: Well alert, well oriented, in mild distress. HEENT: Conjunctive are pink, sclerae clear, no icterus, Neck: Supple, no JVD, Chest: Equal air entry on both lungs, no additional sounds no rhonchi no wheezing at the moment. Cardiovascular: S1-S2 regular sinus rhythm and, regular rate, no gallops, no rubs, no murmurs Abdomen: Soft, non in the epigastric region, bowel sounds heard, no guarding, no rigidity Extremities: No obvious deformities, no pitting edema bilaterally, capillary refill intact, peripheral pulsations are intact on both sides Central Nervous System: No focal neurological deficits, no motor or sensory weakness in all 4 extremities, could move all 4 extremities, 2+ deep tendon reflexes, negative Babinski. Musculoskeletal: No joint swelling, deformities, inflammations, and no scoliosis and back tenderness Skin: Warm and dry, dry mouth. Coagulation Studies Laboratory Tests Test 06/04/25 06:15 Prothrombin Time 12.7 SECONDS (9.0-12.0) H INR International Normalized Ratio 1.3 INR Coagulation Comments Advance Care Planning Advanced Care plannin - 30 Minutes Plan Plan Admit this patient for in view of possible in view of alcohol withdrawal/alcohol intoxication. Plan Alcohol Withdrawl Seizures/Alcohol Intoxication CIWA score 12 Utox Alcohol level-285 Received one dose of Keppra 1000 mg in the ER Continue home medication Keppra Patient on moderate alcohol withdrawal protocol Patient is experiencing tremors today. In view of chronic diarhhea, started patient on pancreatic enzyme supplements,as diarrhea could be due to pancreatic insufficiency due to alcohol use 06/05/25 Consulted Neurology who recommended Keppra 750 mg b.i.d and MRI and EEG outpatient MRI showed No acute cerebrovascular ischemia. Cirrhosis Secondary to Alcohol Use Abdominal ultrasound suggestive of cirrhosis and ascites In view of ascites started patient on Lasix 40 mg IV daily and spironolactone p.o. 100 mg Hep C antibody negative on 12/11 09/16 HepBsg and hep B core Igm Ab on 12/11/24 negative AST 122, ALT 53 AST/ALT ratio > 2 suggestive of alcohol-induced liver injury, total bilirubin 0.8 Alcohol Induced Gastritis Likely secondary to alcohol-induced gastritis Patient had an episode of melena. Hemoglobin is 10.4, dropped from 14.6 Stool occult blood negative Continue Pantoprazole 40 mg IV b.i.d. Patient underwent endoscopy which showed nonbleeding gastric ulcer,reflux esophagitis and non bleeding Gastric Ulcer. Ruled out upper GI bleeding as endoscopy did not show any bleeding. Pancytopenia Possibly Secondary to Chronic Alcohol use WBC 2.7, RBC 2.73 and platelets 95 Follow up with CBC Hypokalemia Resolved Hypomangesimia Resolved Hyponatremia, hypochloremia, hypophosphatemia Resolved Macrocytic Anemia Secondary to Chronic Alcohol Use Hgb 10.2 Hct: 30.5 [id number] Likely secondary to alcohol Awaiting vitb12 06/04/25 Hgb 10. Hct 30.9 MCV 111 Awaiting vit b12 Code status: Full code Diet: Regular diet DVT prophylaxis: Heparin GI prophylaxis:Pantoprazole 40 mg IV BID Disposition: We will continue to monitor patient,,possible discharge tomorrow. Date of Service: Jun 04, 2025 Billing Provider: MICK SWANSON MD, SANJAY, RES Jun 04, 2025 12:54
--- NOTE | 2025-06-04 15:44 | RADIOLOGY REPORT ---
PROCEDURE: MR MRI HEAD Indication: SEIZURE COMPARISON: CT CT HEAD on DOS: 05/03/25, TECHNIQUE: Multiplanar multisequence images of the brain are obtained. FINDINGS: There is no abnormal diffusion restriction. There is no intracranial hemorrhage. No extra-axial fluid collection, mass effect or midline shift. The ventricles are midline and normal in size. The cisterns are patent. Normal intracranial flow voids are preserved. No abnormal susceptibility signal. No ev idence for increased T2 signal within the medial temporal lobes. No hippocampal atrophy. Bilateral mastoid effusions, [id number]. The visualized orbits are unremarkable. IMPRESSION: No acute cerebrovascular ischemia. Bilateral mastoid effusions.
[2025-06-04 18:00] VITALS: BP 119/79; PULSE 114; RESP 18; TEMP 97.9; O2SAT 95
[2025-06-04 19:02] VITALS: RESP 16; O2SAT 95
[2025-06-04 21:58] VITALS: BP 133/96; PULSE 121; RESP 16; TEMP 99.1; O2SAT 98
[2025-06-05 06:00] VITALS: BP 134/99; PULSE 105; RESP 18; TEMP 99; O2SAT 95
[2025-06-05 06:44] LABS: MEAN PLATELET VOLUME 9.0 FL (7.4-10.4); RED CELL DISTRIBUTION WIDTH 18.0 % (11.5-14.5)
[2025-06-05 06:46] LABS: INR 1.2 INR
[2025-06-05 07:05] LABS: CREATININE 0.46 MG/DL (0.40-0.90); PHOSPHORUS 3.9 MG/DL (2.3-4.5); TOTAL CARBON DIOXIDE 32.1 MMOL/L (24-32); eCRCL 139 ML/MIN; eGFR > 90 ML/MIN
[2025-06-05 07:30] LABS: EOSINOPHILS % (MANUAL) 1.0 % (0-6); LYMPHOCYTES % (MANUAL) 50.0 % (21-51); MONOCYTES % (MANUAL) 9.0 % (2-12); NEUTROPHILS % (MANUAL) 40.0 % (42-75); PLATELET ESTIMATE DECREASED
[2025-06-05 08:00] VITALS: RESP 18; O2SAT 95
[2025-06-05] MEDS ORDERED: FURO-150 PO (09:57)
[2025-06-05] MEDS ORDERED: LACT1CAP26 PO (09:57)
[2025-06-05] MEDS ORDERED: LEVE750T35 PO (09:57)
[2025-06-05] MEDS ORDERED: hydrocortisone cream TP (09:57)
[2025-06-05] MEDS ORDERED: FOLI1TAB27 PO (09:57)
[2025-06-05] MEDS ORDERED: MULT-1085 PO (09:57)
[2025-06-05 10:00] VITALS: BP 107/79; PULSE 122; RESP 16; TEMP 98.1; O2SAT 97
[2025-06-05] MEDS ORDERED: DIAZ5TAB PO (11:46)
[2025-06-05 12:25] VITALS: RESP 12
[2025-06-05] MEDS ORDERED: SPIR25TA5 PO (12:47)
--- NOTE | 2025-06-05 17:22 | DISCHARGE SUMMARY-Residence ---
Discharge Summary Providers to Resident Creating Document: FRANKJINNYJEANNINEMADHAVI RECINOS ~ Discharge Summary Admission Diagnosis: Seizures Hospital Course DATE OF ADMISSION: 06/02/25 DATE OF DISCHARGE: 06/05/25 Discharge Diagnosis\Comment: Alcohol Withdrawl Symptoms Alcohol Intoxication Alcohol-Induced Gastritis Hypokalemia Resolved Hypomangesimia Resolved Hyponatremia, hypochloremia, hypophosphatemia Resolved Macrocytic Anemia Secondary to Chronic Alcohol Use Panic attacks Operations\Procedures: Upper endoscopy Consultants: Neurologist was consulted Senior Specialist Complications: None Condition on DC: Stable New Medications: Diazepam (Valium) 5 Mg Tablet 1 TAB PO Q12H PRN PRN for anxiety, #14 TAB 0 Refills Furosemide (Lasix) 20 Mg Tablet 20 MG PO BID for 30 Days, #60 TAB Levetiracetam (Keppra Xr) 750 Mg Tab.er.24h 1 TAB PO Q12H for 30 Days, #60 TAB 0 Refills Multivitamin (Multi Vitamin Daily) 1 Each Tablet 1 TAB PO DAILY for 30 Days, #30 TAB 0 Refills Spironolactone (Spironolactone) 25 Mg Tablet 100 MG PO DAILY, #120 TAB Folic Acid* (Folic Acid*) Y Tab 1 MG PO DAILY, #30 TAB [hydrocortisone cream] () 1 APPLIC CREAM.GM. 1 APPLIC TP BID, #1 APPLICATOR Lactobacillus Rhamnosus (Culturelle) 10 Billion Cell Capsule [address]2674 MMU PO DAILY, #30 CAP Continued Medications: Acetaminophen (Tylenol) 325 Mg Tablet 1 TAB PO Q8H PRN for pain or fever for 30 Days, #30 TAB Hydrocodone Bit/Acetaminophen (Hydrocodon-Acetaminophen 5-325) 5 Mg-325 Mg Tablet 2 TAB PO Q6H PRN for pain Pantoprazole Sodium (Pantoprazole Sodium) 40 Mg Tablet.dr 40 MG PO BKF for 30 Days, #30 TAB.SR Thiamine HCl (Vitamin B-1) 50 Mg Tablet 2 TAB PO DAILY for 30 Days, #60 TAB 0 Refills Discharge Summary: Hospital Course This is a 39-year old female with a history of systemic lupus erythematosus, seizure disorder, and alcohol use disorder was admitted for evaluation of seizure activity. She had been using Keppra 500 mg BID daily at home, in view of seizure concern neurology was consulted who recommended increasing the dose of Keppra 750 mg twice daily also recommended MRI and EEG outpatient, MRI showed no acute changes. She also reported reported chronic diarrhea and an episode of melena. Stool testing for C. difficile and occult blood were negative. EGD revealed a non-bleeding gastric ulcer and reflux esophagitis; she was also started on a proton pump inhibitor and counseled to avoid alcohol and NSAIDs. Abdominal ultrasound demonstrated cirrhotic changes, and her liver enzymes showed an AST/ALT ratio consistent with alcohol-induced liver injury .The patient also had pancytopenia, likely secondary to alcohol use, and experienced anxiety and panic attacks related to alcohol withdrawal, for which she was ma naged on an alcohol withdrawal protocol with symptomatic improvement.She did not experienced any episode of seizure during hospitalization. At discharge, she was hemodynamically stable, alert, and seizure-free. She was discharged on kepra 750 mg twice daily, and was counselled to follow up with neurology, gastroenterology, and her primary care provider and she was also counselled to avoid alcohol, EGD FINDINGS -LA GRADE B REFLUX ESOPHAGITIS WITH NO BLEEDING -CONGESTED,ERYHTEMATOUS AND GRANULAR MUCOSA IN THE STOMACH, BIOPSIED -NON BLEEDING GASTRIC ULCER WITH A CLEAN ULCER BASE(FOREST CLASS III) -NORMAL DUODENAL BULB AND SECOND PORTION OF DUODENUM Physical Examination General: Well alert, well oriented, in mild distress. HEENT: Conjunctive are pink, sclerae clear, no icterus, Neck: Supple, no JVD, Chest: Equal air entry on both lungs, no additional sounds no rhonchi no wheezing at the moment. Cardiovascular: S1-S2 regular sinus rhythm and, regular rate, no gallops, no rubs, no murmurs Abdomen: Soft, non in the epigastric region, bowel sounds heard, no guarding, no rigidity Extremities: No obvious deformities, no pitting edema bilaterally, capillary refill intact, peripheral pulsations are intact on both sides Central Nervous System: No focal neurological deficits, no motor or sensory weakness in all 4 extremities, could move all 4 extremities, 2+ deep tendon ref lexes, negative Babinski. Musculoskeletal: No joint swelling, deformities, inflammations, and no scoliosis and back tenderness Skin: Warm and dry. Labs Wbc: 2.8 RBC: 2.6 Hgb 10 Hct: 29 NA: 140 K 3.5 Creatinine: 0.46 Imaging Abdomen Pelvis/CT Findings: Limited evaluation of the solid organs in the absence of IV contrast. Lungs: Basilar atelectasis/scarring. Liver: Unremarkable. Spleen: Unremarkable. Pancreas: Mild peripancreatic stranding. Gallbladder: Mild distention of the gallbladder. Adrenals: Unremarkable Kidneys: Unremarkable. Pelvic Viscera: Unremarkable. Vasculature: Unremarkable. Retroperitoneum: Shotty retroperitoneal nodes. Moderate abdominopelvic ascites. Bowel: Portions of the colon are decompressed, limiting assessment. There is submucosal fat deposition /edema within the ascending colon. No bowel obstruc tion. Probable interval increase in wall thickening about the small bowel within the left upper quadrant, suboptimally assessed. Musculoskeletal: Chronic L1 compression with associated Schmorl's node. Soft tissues: Unremarkable Impression: 1. Probable wall thickening about the small bowel within the left upper quadrant, suboptimally assessed. 2. Slight interval increase in abdominopelvic ascites. Abdomen/Pelvis US FINDINGS: The liver demonstrates heterogeneous nodular echotexture without focal mass lesions. The liver measures 15 cm. There is no intrahepatic or extrahepatic ductal dilatation. The common duct measures 0.3 cm. The gallbladder is without evidence of stone or sludge. The gallbladder wall measures 0.3 cm and is within normal limits. The right kidney measures 10.5 cm. The right kidney is normal in contour, size, and shape. The echogenicity is normal. There is no hydronephrosis. The pancreas is not well visualized due to overlying bowel gas. IMPRESSION: Hepatic cirrhosis. Small volume ascites. Chest X-Ray FINDINGS/IMPRESSION: No radiographic evidence of an acute osseous abnormality. There is no acute fracture, osseous malalignment, or aggressive focal osseous lesion. There is no radiographically apparent joint space narrowing. Head MRI FINDINGS: There is no abnormal diffusion restriction. There is no intracranial hemorrhage. No extra-axial fluid collection, mass effect or midline shift. The ventricles are midline and normal in size. The cisterns are patent. Normal intracranial flow voids are preserved. No abnormal susceptibility signal. No evidence for increased T2 signal within the medial temporal lobes. No hippocampa l atrophy. Bilateral mastoid effusions, [id number]. The visualized orbits are unremarkable. IMPRESSION: No acute cerebrovascular ischemia. Bilateral mastoid effusions. Discharge Instructions Follow up with PCP within 1 week Follow up with Gasteroenterlogist within 2 weeks ,as you have cirhotic findings in liver. FOLLOW UP WITH NEUROLOGIST WITHIN 2 WEEKS as you have seizure disorder Follow up with Psychiatrist within 2 weeks, as you had panic attacks. Avoid Alcohol Take medications as prescribed Call 911 or go to nearest ER if you experiece. *Problems/Diagnosis: (1) Hypokalemia Status: Resolved Total Time Spent on D/C: > 30 Minutes Date of Service: Jun 05, 2025 Billing Provider: MICK SWANSON MD Common Visit Codes: 76939-ZHF/OBS DISCH DAY >30min JEANNINE MARIE, RES Jun 05, 2025 17:01 MICK SWANSON MD Jun 06, 2025 10:28
[2025-06-05] MEDS ORDERED: diazepam inj 5 MG/ML inj. IV PRN (18:55)
[2025-06-07] MEDS ORDERED: diazepam inj 5 MG/ML inj. IV PRN (18:55)
== END 2025-06-05 12:40 | disposition home or self-care (01) | DRG 53 ==
LOC: ER 18:01 → ED HOLD 06-02 01:29 → ORTHO 4S 06-02 16:18
PROVIDERS: ADMIT Internal Medicine; ATTEND Internal Medicine
PROC: BW211ZZ Computerized Tomography (CT Scan) of Abdomen and Pelvis using Low Osmolar Contrast (ICD-10-PCS; 2025-06-01)
PROC: 0DB68ZX Excision of Stomach, Via Natural or Artificial Opening Endoscopic, Diagnostic (ICD-10-PCS; principal; 2025-06-03 09:53)
PROC: 05H933Z Insertion of Infusion Device into Right Brachial Vein, Percutaneous Approach (ICD-10-PCS; 2025-06-04)
PROC: B54MZZA Ultrasonography of Right Upper Extremity Veins, Guidance (ICD-10-PCS; 2025-06-04)
DX: G40.909 Epilepsy, unspecified, not intractable, without status epilepticus (principal); D61.818 Other pancytopenia; K70.31 Alcoholic cirrhosis of liver with ascites; S36.118A Other injury of liver, initial encounter; E86.0 Dehydration; E87.1 Hypo-osmolality and hyponatremia; I48.91 Unspecified atrial fibrillation; E83.42 Hypomagnesemia; E87.6 Hypokalemia; K92.1 Melena; K29.20 Alcoholic gastritis without bleeding; K21.00 Gastro-esophageal reflux disease with esophagitis, without bleeding; K25.9 Gastric ulcer, unspecified as acute or chronic, without hemorrhage or perforation; F10.229 Alcohol dependence with intoxication, unspecified; F10.239 Alcohol dependence with withdrawal, unspecified; F41.9 Anxiety disorder, unspecified; Y90.8 Blood alcohol level of 240 mg/100 ml or more; E87.8 Other disorders of electrolyte and fluid balance, not elsewhere classified; G47.00 Insomnia, unspecified; D75.89 Other specified diseases of blood and blood-forming organs; D53.9 Nutritional anemia, unspecified; Z83.3 Family history of diabetes mellitus; Z95.1 Presence of aortocoronary bypass graft; X58.XXXA Exposure to other specified factors, initial encounter; Y93.89 Activity, other specified; Y92.89 Other specified places as the place of occurrence of the external cause; Y99.8 Other external cause status
CPT/HCPCS: 36410; 36415; 43239; 70551; 71045; 73564; 74176; 76700; 76937; 80048; 80053; 80305; 80320; 81003; 82140; 82150; 82248; 82272; 82607; 82948; 83036; 83690; 83735; 84100; 84132; 84703; 85007; 85025; 85027; 85610; 87081; 87324; 87449; 92508; 92616; 93005; 96365; 96367; 96375; 99291; A4618; A4620; C1751; G0378; J0131; J1171; J1644; J1938; J1953; J2003; J2060; J2250; J2270; J2405; J2470; J2560; J2704; J3360; J3411; J3475; J3480; J3490; J7030; J7040; J7120